=== PATIENT | male | born 1955 | race Caucasian/White ===

== ENCOUNTER 2016-11-03 12:09 | Emergency (ER) | payer OTHER ==
[~2016-11-03] VITALS: Ht 170.2 cm; Wt 60.3 kg
[~2016-11-03 12:09] MED LIST: ALBU17AE13 IH; AUG875 PO; FLUT1DIS; PRED20TA PO
[2016-11-03 12:18] VITALS: BP_SYST 111
--- NOTE | 2016-11-03 12:22 | NUR ---
Pt to bed 8
--- NOTE | 2016-11-03 12:24 | NUR ---
Pt brought by self, A&Ox4, pt states he was bit by a cat yesterday, wants to make sure he does not have rabies, mild swelling and scabs noted on L hand, cap refill <3, VSS, no active bleeding noted.
--- NOTE | 2016-11-03 12:26 | NUR ---
Dr. Weston at bedside for evaluation
[2016-11-03] MEDS ORDERED: AMOXICILLIN/CLAVULANATE POTASSIUM 875 MG TABLET PO ONE (12:30)
[2016-11-03] MEDS ORDERED: DIPH-TET-PERTUS Vaccine 0.5 ML VIAL (ADACEL) IM ONE (12:45)
[2016-11-03 13:00] VITALS: BP_SYST 111
--- NOTE | 2016-11-03 13:08 | NUR ---
Patient given written and verbal discharge instructions and verbalizes understanding. ER MD discussed with patient the results and treatment provided. Patient in stable condition. ID arm band removed. Rx of Augmentin given. Patient educated on pain management and to follow up with PMD. Pain Scale 2/10 tolerable for patient Opportunity for questions provided and answered.
== END 2016-11-03 13:08 | disposition home or self-care (01) ==
LOC: SED 12:09
DX: S61.452A Open bite of left hand, initial encounter (principal); J44.9 Chronic obstructive pulmonary disease, unspecified; K21.9 Gastro-esophageal reflux disease without esophagitis; M47.897 Other spondylosis, lumbosacral region; W55.01XA Bitten by cat, initial encounter; Y93.89 Activity, other specified; Y92.89 Other specified places as the place of occurrence of the external cause; Y99.8 Other external cause status
CPT/HCPCS: 90715; 99283

== ENCOUNTER 2017-03-17 12:03 | Emergency (ER) | payer OTHER ==
[~2017-03-17] VITALS: Ht 170.2 cm; Wt 59.9 kg
[2017-03-17 12:03] VITALS: BP_SYST 124
[2017-03-17] MEDS ORDERED: PREDNISONE 20 MG TABLET PO ONE (13:45)
[2017-03-17] MEDS ORDERED: IPRATROPIUM BROM 0.5 MG/2.5 ML VIAL.NEB (ATROVENT) INH ONE (13:45)
[2017-03-17] MEDS ORDERED: ALBUTEROL SULFATE 0.083% 2.5 MG/3 ML VIAL.NEB INH ONE (13:45)
[2017-03-17] MEDS ORDERED: DOXYCYCLINE HYCLATE 100 MG CAPSULE PO ONE (13:45)
[2017-03-17 15:47] VITALS: BP_SYST 137
== END 2017-03-17 15:47 | disposition home or self-care (01) ==
LOC: SED 12:03
DX: J44.1 Chronic obstructive pulmonary disease with (acute) exacerbation (principal); K21.9 Gastro-esophageal reflux disease without esophagitis; M47.896 Other spondylosis, lumbar region; Z79.899 Other long term (current) drug therapy
CPT/HCPCS: 71020; 94640; 99284; J7512

== ENCOUNTER 2018-04-21 22:36 | Inpatient (IN) | payer OTHER ==
[~2018-04-21] VITALS: Ht 170.2 cm; Wt 65.0 kg
[2018-04-21 22:36] VITALS: BP_SYST 180
[~2018-04-21 22:36] MED LIST changes: +AMOX-426 PO; -AUG875 PO
[2018-04-21] MEDS ORDERED: NS 500 ML IV ONE (23:00)
[2018-04-21] MEDS ORDERED: IPRATROPIUM/ALBUTEROL SULFATE 3 ML AMPUL.NEB INH ONE (23:00)
[2018-04-21] MEDS ORDERED: MAGNESIUM SULFATE IN WATER 500 ML IV PRN (23:00)
[2018-04-21] MEDS ORDERED: NACL 0.9% 500 ML IV ONE (23:00)
[2018-04-21] MEDS ORDERED: methylPREDNISolone SOD SUCC/PF 62.5 MG/ML VIAL IVP ONE (23:00)
[2018-04-21] MEDS ORDERED: MAGNESIUM SULFATE 50 ML IV ONE (23:15)
[2018-04-21 23:42] LABS: BASOPHILS # (AUTO) 0.1 K/uL (0.0-0.2); BASOPHILS % (AUTO) 1.3 % (0.0-2.0); EOSINOPHILS # (AUTO) 0.2 K/uL (0.0-0.4); EOSINOPHILS % (AUTO) 2.4 % (0.0-4.0); HEMATOCRIT 43.2 % (36-54); LYMPHOCYTES # (AUTO) 2.7 K/uL (1.0-5.5); LYMPHOCYTES % (AUTO) 31.7 % (20.5-51.5); MEAN CORPUSCULAR HEMOGLOBIN 31 pg (27-31); MEAN CORPUSCULAR HGB CONC 32 % (32-36); MEAN CORPUSCULAR VOLUME 94 fL (79.0-98.0); MONOCYTES # (AUTO) 0.9 K/uL (0.0-1.0); MONOCYTES % (AUTO) 11.1 % (1.7-9.3); NEUTROPHILS # (AUTO) 4.5 K/uL (1.8-7.7); NEUTROPHILS % (AUTO) 53.5 % (40.0-70.0); PLATELET COUNT (AUTO) 212 K/uL (130-430); RED BLOOD CELL COUNT(AUTO) 4.58 MIL/uL (4.2-6.2); RED CELL DISTRIBUTION WIDTH 12.6 % (9.0-15.0); WHITE BLOOD COUNT (AUTO) 8.4 K/uL (4.8-10.8)
[2018-04-21 23:48] LABS: CALCIUM 9.6 mg/dL (8.4-11.0); CREATININE 0.94 mg/dL (0.55-1.30); POTASSIUM 4.6 mmol/L (3.5-5.1)
[2018-04-21 23:54] LABS: ALBUMIN 3.8 g/dL (3.4-4.8); TOTAL BILIRUBIN 0.5 mg/dL (0.0-1.0)
[2018-04-22] VITALS (7 sets, daily range): BP systolic 139–160
[2018-04-22] MEDS ORDERED: IPRATROPIUM/ALBUTEROL SULFATE 3 ML AMPUL.NEB INH ONE ×2 (00:15→01:30)
[2018-04-22] MEDS ORDERED: ALBU2.5V7 INH (02:56)
[2018-04-22] MEDS ORDERED: ALBMDI INH (02:56)
[2018-04-22] MEDS ORDERED: IPRATROPIUM BROM 0.5 MG/2.5 ML VIAL.NEB (ATROVENT) INH PRN (03:00)
[2018-04-22] MEDS ORDERED: AZITHROMYCIN 500 MG/VIAL (ZITHROMAX) IV ONE (04:35)
[2018-04-22] MEDS ORDERED: cefTRIAXone 1 GM IVPB PREMIX 50 ML IV ONE (04:35)
[2018-04-22] MEDS: cefTRIAXone 1 GM in D5W 50 ML IV SCH (04:38)
[2018-04-22] MEDS: IPRATROPIUM/ALBUTEROL SULFATE 3 ML AMPUL.NEB INH PRN ×2 (05:00→09:38)
[2018-04-22] MEDS: methylPREDNISolone SOD SUCC/PF 62.5 MG/ML VIAL IVP SCH ×3 (05:27→22:19)
[2018-04-22] MEDS: AZITHROMYCIN 500 MG in NS 250 ML IV SCH (05:28)
[2018-04-22] MEDS: IPRATROPIUM/ALBUTEROL SULFATE 3 ML AMPUL.NEB INH SCH ×5 (07:00→23:32)
[2018-04-22] MEDS ORDERED: FLUTICASONE 100 mCg/SALMETEROL 50 mCg DISKUS W.DEV INH SCH (09:45)
[2018-04-22] MEDS ORDERED: ENOXAPARIN SODIUM 40 MG/0.4 ML SYRINGE SUBCUT ONE (14:30)
[2018-04-23 00:14] VITALS: BP_SYST 140
[2018-04-23] MEDS: IPRATROPIUM/ALBUTEROL SULFATE 3 ML AMPUL.NEB INH SCH ×6 (03:00→22:35)
[2018-04-23] MEDS: methylPREDNISolone SOD SUCC/PF 62.5 MG/ML VIAL IVP SCH ×3 (05:17→21:29)
[2018-04-23] MEDS: ENOXAPARIN SODIUM 40 MG/0.4 ML SYRINGE SUBCUT SCH (08:02)
[2018-04-23] MEDS: cefTRIAXone 1 GM in D5W 50 ML IV SCH (08:03)
[2018-04-23 08:11] VITALS: BP_SYST 129
[2018-04-23] MEDS: AZITHROMYCIN 500 MG in NS 250 ML IV SCH (09:16)
[2018-04-23 12:10] VITALS: BP_SYST 126
[2018-04-23 16:56] VITALS: BP_SYST 134
[2018-04-23 19:00] VITALS: BP_SYST 144
[2018-04-23 20:00] VITALS: BP_SYST 144
[2018-04-24 00:12] VITALS: BP_SYST 125
[2018-04-24] MEDS ORDERED: guaiFENesin 200 MG/CODEINE 20 MG/ 10 ML UDC PO PRN (00:15)
[2018-04-24] MEDS ORDERED: ZOLPIDEM TARTRATE 5 MG TABLET PO PRN (00:15)
[2018-04-24] MEDS: IPRATROPIUM/ALBUTEROL SULFATE 3 ML AMPUL.NEB INH SCH ×3 (02:13→10:32)
[2018-04-24] MEDS: methylPREDNISolone SOD SUCC/PF 62.5 MG/ML VIAL IVP SCH (05:26)
[2018-04-24] MEDS: ENOXAPARIN SODIUM 40 MG/0.4 ML SYRINGE SUBCUT SCH (08:01)
[2018-04-24] MEDS: cefTRIAXone 1 GM in D5W 50 ML IV SCH (08:02)
[2018-04-24 08:10] VITALS: BP_SYST 144
[2018-04-24] MEDS: AZITHROMYCIN 500 MG in NS 250 ML IV SCH (09:11)
[2018-04-24] MEDS ORDERED: MEDROL PACK PO (09:51)
[2018-04-24] MEDS ORDERED: Z-PACK PO (09:54)
[2018-04-24 10:16] VITALS: BP_SYST 143
[2018-04-24 12:15] VITALS: BP_SYST 143
== END 2018-04-24 11:10 | disposition home or self-care (01) | DRG 192 ==
LOC: SED 22:36 → STU 04-22 02:51
PROVIDERS: ADMIT Internal Medicine Hospice and Palliative Medicine; ATTEND Internal Medicine Hospice and Palliative Medicine
DX: J44.1 Chronic obstructive pulmonary disease with (acute) exacerbation (principal); I10 Essential (primary) hypertension; F17.210 Nicotine dependence, cigarettes, uncomplicated; K21.9 Gastro-esophageal reflux disease without esophagitis; F32.9 Major depressive disorder, single episode, unspecified; Z66 Do not resuscitate; M47.9 Spondylosis, unspecified
CPT/HCPCS: 36415; 36600; 71045; 80053; 82803-TC; 83605; 85025; 87040-TC; 94640; 94760; 96361; 96365; 96366; 96375; 99285; J0456; J0696; J1650; J2930; J3475; J7040; J7050; J7060; J7620

== ENCOUNTER 2018-05-05 23:19 | Emergency (ER) | payer OTHER ==
[~2018-05-05] VITALS: Ht 170.2 cm; Wt 59.9 kg
[2018-05-05 23:19] VITALS: BP_SYST 174
[~2018-05-05 23:19] MED LIST changes: +ALBMDI INH; +ALBU2.5V7 INH; -AMOX-426 PO; +MEDROL PACK PO; -PRED20TA PO; +Z-PACK PO
--- NOTE | 2018-05-05 23:19 | NUR ---
Placed in room 1. Placed on environmental monitoring technician, blood pressure machine and pulse oximeter. To gown for exam. Side rails up. Report given to Pee WILKERSON.
[2018-05-05] MEDS ORDERED: NACL 0.9% 1,000 ML IV ONE ×2 (23:21→23:30)
--- NOTE | 2018-05-05 23:21 | NUR ---
Pt was brought in by ALS complaining of shortness of breath s/p smoking one cigarette today. Per field marketing coordinator, pt has an inhaler and used it but no relief. Pt came in with 20 gauge angiocath to left AC placed by paramedics. Pt denies N/V or chest pain. No other injuries/complaints per patient or noted.
--- NOTE | 2018-05-05 23:22 | NUR ---
ER Dr. Woodward at bedside examining patient.
[2018-05-05] MEDS ORDERED: cefTRIAXone 1 GM IVPB PREMIX 50 ML IV ONE (23:30)
[2018-05-05] MEDS ORDERED: IPRATROPIUM BROM 0.5 MG/2.5 ML VIAL.NEB (ATROVENT) IH ONE (23:30)
[2018-05-05] MEDS ORDERED: ASPIRIN 81 MG TAB.CHEW PO ONE (23:30)
[2018-05-05] MEDS ORDERED: methylPREDNISolone SOD SUCC/PF 62.5 MG/ML VIAL IVP ONE (23:30)
[2018-05-05] MEDS ORDERED: ALBUTEROL SULFATE 0.083% 2.5 MG/3 ML VIAL.NEB IH ONE (23:30)
[2018-05-05] MEDS ORDERED: MAGNESIUM SULFATE 50 ML IV ONE (23:30)
--- NOTE | 2018-05-06 00:01 | NUR ---
Medication was given, pt tolerated well. No adverse reaction, will continue to monitor.
[2018-05-06 00:15] LABS: BASOPHILS # (AUTO) 0.1 K/uL (0.0-0.2); BASOPHILS % (AUTO) 0.9 % (0.0-2.0); EOSINOPHILS # (AUTO) 0.2 K/uL (0.0-0.4); EOSINOPHILS % (AUTO) 1.7 % (0.0-4.0); HEMOGLOBIN 13.4 g/dL (14.0-18.0); LYMPHOCYTES # (AUTO) 3.2 K/uL (1.0-5.5); LYMPHOCYTES % (AUTO) 33.5 % (20.5-51.5); MEAN CORPUSCULAR HEMOGLOBIN 30 pg (27-31); MEAN CORPUSCULAR HGB CONC 32 % (32-36); MEAN CORPUSCULAR VOLUME 94 fL (79.0-98.0); MONOCYTES # (AUTO) 0.8 K/uL (0.0-1.0); MONOCYTES % (AUTO) 8.2 % (1.7-9.3); NEUTROPHILS # (AUTO) 5.4 K/uL (1.8-7.7); NEUTROPHILS % (AUTO) 55.7 % (40.0-70.0); PLATELET COUNT (AUTO) 226 K/uL (130-430); RED BLOOD CELL COUNT(AUTO) 4.45 MIL/uL (4.2-6.2); RED CELL DISTRIBUTION WIDTH 12.6 % (9.0-15.0); WHITE BLOOD COUNT (AUTO) 9.7 K/uL (4.8-10.8)
[2018-05-06 00:26] LABS: CALCIUM 8.8 mg/dL (8.4-11.0); CREATININE 0.88 mg/dL (0.55-1.30); POTASSIUM 3.6 mmol/L (3.5-5.1)
[2018-05-06 00:29] LABS: INR 0.9 (0.80-1.20)
[2018-05-06 00:30] LABS: PROTHROMBIN TIME 8.9 SECS (9.5-12.5)
[2018-05-06 00:32] LABS: ALBUMIN 3.3 g/dL (3.4-4.8); TOTAL BILIRUBIN 0.2 mg/dL (0.0-1.0)
--- NOTE | 2018-05-06 01:36 | NUR ---
Pt resting comfortably in hospital bed. No acute distress. Will continue to monitor.
[2018-05-06 02:17] VITALS: BP_SYST 136
--- NOTE | 2018-05-06 02:17 | NUR ---
Patient given written and verbal discharge instructions and verbalizes understanding. ER MD discussed with patient the results and treatment provided. Patient in stable condition. ID arm band removed. IV catheter removed intact and dressing applied, no active bleeding. Rx of Robitussin, Albuterol, and Zithromax given. Patient educated on pain management and to follow up with PMD. Pain Scale 0/10. Opportunity for questions provided and answered. Medication side effect fact sheet provided.
[2018-05-06 02:20] LABS: BILIRUBIN,URINE NEGATIVE (NEGATIVE); BLOOD, URINE NEGATIVE (NEGATIVE); CLARITY/URINE CLEAR (CLEAR); COLOR,URINE YELLOW (YELLOW); GLUCOSE,URINE NEGATIVE (NEGATIVE); KETONES,URINE NEGATIVE (NEGATIVE); LEUKOCYTE ESTERASE ,URINE NEGATIVE (NEGATIVE); NITRITE, URINE NEGATIVE (NEGATIVE); PROTEIN URINE NEGATIVE (NEGATIVE); UROBILINOGEN,URINE 0.2 (0.2-1.0)
[2018-05-06 02:52] LABS: BARBITURATE, URINE NEGATIVE (NEG <=200); BENZODIAZEPINE, URINE NEGATIVE (NEG <=150); CANNABINOID, URINE NEGATIVE (NEG <=50); COCAINE, URINE NEGATIVE (NEG <=150); METHAMPHETAMINES SCREEN,URINE NEGATIVE (NEG <=500); OPIATE, URINE NEGATIVE (NEG <=100); PHENCYCLIDINE SCREEN,URINE NEGATIVE (NEG <=25); UR TRICYCLIC ANTIDEPRESSANTS NEGATIVE (NEG <=300); URINE AMPHETAMINE NEGATIVE (NEG <=500); URINE METHADONE NEGATIVE (NEG <=200); URINE OXYCODONE SCREEN NEGATIVE (NEG <=100); URINE PROPOXYPHENE SCREEN NEGATIVE (NEG <=300)
== END 2018-05-06 02:17 | disposition home or self-care (01) ==
LOC: SED 23:19
DX: J44.1 Chronic obstructive pulmonary disease with (acute) exacerbation (principal); K21.9 Gastro-esophageal reflux disease without esophagitis; F17.210 Nicotine dependence, cigarettes, uncomplicated; Z79.899 Other long term (current) drug therapy; Z71.6 Tobacco abuse counseling
CPT/HCPCS: 36415; 36600; 71045; 80053; 80307; 81003; 82150; 82550; 82803; 83605; 83690; 83735; 84484; 85025; 85610; 85730; 87040; 94640; 96365; 96366; 96368; 96375; 99285; J0696; J2930; J3475; J7030; J7613

== ENCOUNTER 2018-05-18 19:07 | Emergency (ER) | payer OTHER ==
[~2018-05-18] VITALS: Ht 170.2 cm; Wt 59.9 kg
[2018-05-18 19:07] VITALS: BP_SYST 154
--- NOTE | 2018-05-18 19:07 | NUR ---
Patient to ER bed 6 to gown for evaluation. Side rails up.
--- NOTE | 2018-05-18 19:08 | NUR ---
PT AAOx4 wheeled into ED c/o difficulty breathing/SOB despite taking albuterol inhaler prior to arrival. Skin pink dry and warm. Denies pain at the moment. No other injuries/complaints per pt/noted. Visitor at bedside. Will continue to monitor.
--- NOTE | 2018-05-18 19:14 | NUR ---
12 lead EKG done at bedside and given to Dr. Escobar for interpretation.
--- NOTE | 2018-05-18 19:30 | NUR ---
Radiology at bedside for CXR
[2018-05-18] MEDS ORDERED: IPRATROPIUM/ALBUTEROL SULFATE 3 ML AMPUL.NEB INH ONE ×2 (19:45→22:00)
--- NOTE | 2018-05-18 19:45 | NUR ---
Respiratory at bedside for breathing tx
[2018-05-18] MEDS ORDERED: methylPREDNISolone SOD SUCC/PF 62.5 MG/ML VIAL IVP ONE (20:30)
[2018-05-18] MEDS ORDERED: MAGNESIUM SULFATE 50 ML IV ONE (20:30)
[2018-05-18 20:31] LABS: INR 0.9 (0.80-1.20); PROTHROMBIN TIME 8.8 SECS (9.5-12.5)
[2018-05-18 21:07] LABS: CALCIUM 8.9 mg/dL (8.4-11.0); CREATININE 0.84 mg/dL (0.55-1.30); POTASSIUM 3.4 mmol/L (3.5-5.1)
[2018-05-18 21:09] LABS: BASOPHILS % (AUTO) 0.6 % (0.0-2.0); EOSINOPHILS % (AUTO) 0.1 % (0.0-4.0); HEMATOCRIT 39.3 % (36-54); HEMOGLOBIN 12.8 g/dL (14.0-18.0); LYMPHOCYTES # (AUTO) 1.5 K/uL (1.0-5.5); LYMPHOCYTES % (AUTO) 19.9 % (20.5-51.5); MEAN CORPUSCULAR HEMOGLOBIN 31 pg (27-31); MEAN CORPUSCULAR HGB CONC 33 % (32-36); MEAN CORPUSCULAR VOLUME 94 fL (79.0-98.0); MONOCYTES # (AUTO) 0.7 K/uL (0.0-1.0); MONOCYTES % (AUTO) 8.9 % (1.7-9.3); NEUTROPHILS # (AUTO) 5.3 K/uL (1.8-7.7); NEUTROPHILS % (AUTO) 70.5 % (40.0-70.0); PLATELET COUNT (AUTO) 213 K/uL (130-430); RED BLOOD CELL COUNT(AUTO) 4.18 MIL/uL (4.2-6.2); RED CELL DISTRIBUTION WIDTH 12.9 % (9.0-15.0); WHITE BLOOD COUNT (AUTO) 7.5 K/uL (4.8-10.8)
--- NOTE | 2018-05-18 21:09 | NUR ---
Solumedrol, Mag Sulfate administered. Pt tolerated well. No adverse reactions noted.
[2018-05-18 21:12] LABS: ALBUMIN 3.2 g/dL (3.4-4.8); TOTAL BILIRUBIN 0.3 mg/dL (0.0-1.0)
[2018-05-18] MEDS ORDERED: IPRATROPIUM/ALBUTEROL SULFATE 3 ML AMPUL.NEB ONE (21:55)
--- NOTE | 2018-05-18 22:05 | NUR ---
Pt resting comfortably in bed with no signs of distress
--- NOTE | 2018-05-18 22:43 | NUR ---
Patient given written and verbal discharge instructions and verbalizes understanding. ER MD Boone discussed with patient the results and treatment provided. Patient in stable condition. ID arm band removed. IV catheter removed intact and dressing applied, no active bleeding. Rx of Medrol Dosepak, Atrovent given. Patient educated on pain management and to follow up with PMD. Pain Scale 0. Opportunity for questions provided and answered. Medication side effect fact sheet provided.
[2018-05-18 22:44] VITALS: BP_SYST 139
== END 2018-05-18 22:43 | disposition home or self-care (01) ==
LOC: SED 19:07
DX: J44.1 Chronic obstructive pulmonary disease with (acute) exacerbation (principal); K21.9 Gastro-esophageal reflux disease without esophagitis; Z79.899 Other long term (current) drug therapy
CPT/HCPCS: 36415; 71045; 80053; 82550; 83880; 84484; 85025; 85610; 85730; 93005; 94640; 96365; 96366; 96375; 99285; J2930; J3475; J7620

== ENCOUNTER 2018-06-08 23:14 | Inpatient (IN) | payer OTHER ==
[~2018-06-08] VITALS: Ht 167.6 cm; Wt 60.0 kg
[2018-06-08 23:14] VITALS: BP_SYST 129
[2018-06-09] VITALS (8 sets, daily range): BP systolic 133–170
[2018-06-09] MEDS ORDERED: methylPREDNISolone SOD SUCC/PF 62.5 MG/ML VIAL IVP ONE (00:15)
[2018-06-09] MEDS ORDERED: guaiFENesin/DEXTROMETHORPHAN 10 ML UDC PO ONE (00:15)
[2018-06-09] MEDS ORDERED: NACL 0.9% 1,000 ML IV ONE ×2 (00:15→01:45)
[2018-06-09 00:43] LABS: CREATININE 1.17 mg/dL (0.55-1.30); POTASSIUM 4.7 mmol/L (3.5-5.1)
[2018-06-09 00:47] LABS: HEMATOCRIT 43.8 % (36-54); HEMOGLOBIN 14.4 g/dL (14.0-18.0); MEAN CORPUSCULAR HEMOGLOBIN 31 pg (27-31); MEAN CORPUSCULAR HGB CONC 33 % (32-36); MEAN CORPUSCULAR VOLUME 93 fL (79.0-98.0); PLATELET COUNT (AUTO) 275 K/uL (130-430); RED BLOOD CELL COUNT(AUTO) 4.69 MIL/uL (4.2-6.2); RED CELL DISTRIBUTION WIDTH 12.6 % (9.0-15.0)
[2018-06-09 00:48] LABS: ALBUMIN 2.3 g/dL (3.4-4.8); INR 0.8 (0.80-1.20); PROTHROMBIN TIME 8.6 SECS (9.5-12.5); TOTAL BILIRUBIN 0.2 mg/dL (0.0-1.0)
[2018-06-09] MEDS ORDERED: cefTRIAXone 1 GM IVPB PREMIX 50 ML IV ONE (01:45)
[2018-06-09] MEDS ORDERED: VANCOMYCIN HCL 1,000 MG in NS 250 ML IV ONE (01:45)
[2018-06-09] MEDS ORDERED: PRED5TAB PO (01:47)
[2018-06-09 01:59] LABS: BAND % (MANUAL) 2 % (0-6); BASOPHILS % (MANUAL) 0 % (0-2); EOSINOPHILS % (MANUAL) 0 % (0-7); LYMPHOCYTES % (MANUAL) 8 % (20-46); MONOCYTES % (MANUAL) 6 % (0-11)
[2018-06-09 02:00] LABS: WHITE BLOOD COUNT (AUTO) 18.9 K/uL (4.8-10.8)
[2018-06-09] MEDS ORDERED: VANCOMYCIN HCL 1000 MG/VIAL IV ONE (02:10)
[2018-06-09] MEDS ORDERED: KETOROLAC TROMETHAMINE 30 MG VIAL IVP ONE (02:30)
[2018-06-09] MEDS ORDERED: IPRATROPIUM BROM 0.5 MG/2.5 ML VIAL.NEB (ATROVENT) INH PRN (07:00)
[2018-06-09] MEDS ORDERED: ALBUTEROL SULFATE 0.083% 2.5 MG/3 ML VIAL.NEB INH PRN (07:00)
[2018-06-09] MEDS ORDERED: HYDROcodone/ACETAMIN 5-325 MG TAB (NORCO/ VICODIN) PO PRN (07:00)
[2018-06-09] MEDS ORDERED: ONDANSETRON HCL 4 MG/2 ML VIAL IVP PRN (07:00)
[2018-06-09] MEDS ORDERED: methylPREDNISolone SOD SUCC 40 MG/ML VIAL IVP ONE (07:30)
[2018-06-09] MEDS ORDERED: DEXTROSE 50%-WATER 50 ML DISP.SYRIN IVP PRN ×2 (07:30)
[2018-06-09] MEDS ORDERED: GLUCOSE 15 GM GEL (in 37.5 GM TUBE) PO PRN ×2 (07:30)
[2018-06-09] MEDS: IPRATROPIUM BROM 0.5 MG/2.5 ML VIAL.NEB (ATROVENT) INH SCH ×5 (07:40→23:00)
[2018-06-09] MEDS: ALBUTEROL SULFATE 0.083% 2.5 MG/3 ML VIAL.NEB INH SCH ×4 (07:40→19:42)
[2018-06-09 08:42] LABS: HEMATOCRIT 40.3 % (36-54); HEMOGLOBIN 13.3 g/dL (14.0-18.0); MEAN CORPUSCULAR HEMOGLOBIN 30 pg (27-31); MEAN CORPUSCULAR HGB CONC 33 % (32-36); MEAN CORPUSCULAR VOLUME 92 fL (79.0-98.0); PLATELET COUNT (AUTO) 256 K/uL (130-430); RED CELL DISTRIBUTION WIDTH 12.5 % (9.0-15.0); WHITE BLOOD COUNT (AUTO) 18.7 K/uL (4.8-10.8)
[2018-06-09 08:48] LABS: ANION GAP 9 (5-15); CALCIUM 9.1 mg/dL (8.4-11.0); CHLORIDE 104 mmol/L (98-107); CREATININE 1.11 mg/dL (0.55-1.30); GLUCOSE 159 mg/dL (70-99); POTASSIUM 4.9 mmol/L (3.5-5.1); SODIUM SERUM 143 mmol/L (136-145); UREA NITROGEN, BLOOD 26 mg/dL (8-21)
[2018-06-09 08:50] LABS: GFR AFRICAN AMERICAN 86 mL/min (>90)
[2018-06-09 09:00] LABS: ALANINE AMINOTRANSFERASE 30 U/L (12-78); ALBUMIN 2.4 g/dL (3.4-4.8); ASPARTATE AMINOTRANSFERASE 18 U/L (10-37); TOTAL BILIRUBIN 0.3 mg/dL (0.0-1.0)
[2018-06-09 09:10] LABS: BASOPHILS % (MANUAL) 0 % (0-2); EOSINOPHILS % (MANUAL) 0 % (0-7); LYMPHOCYTES % (MANUAL) 6 % (20-46); MONOCYTES % (MANUAL) 2 % (0-11)
[2018-06-09] MEDS: FAMOTIDINE 20 MG TABLET PO SCH (09:55)
[2018-06-09] MEDS: AZITHROMYCIN 500 MG in NS 250 ML IV SCH (09:55)
[2018-06-09] MEDS: INSULIN ASPART 100 UNITS/ML, 10 ML VIAL (NovoLOG) SUBCUT PRN ×2 (12:04→21:43)
[2018-06-09] MEDS: methylPREDNISolone SOD SUCC 40 MG/ML VIAL IVP SCH ×2 (13:11→21:40)
[2018-06-09] MEDS ORDERED: cefTRIAXone 1 GM IVPB PREMIX 50 ML IV SCH (21:00)
[2018-06-10] MEDS: ALBUTEROL SULFATE 0.083% 2.5 MG/3 ML VIAL.NEB INH SCH ×2 (00:33→07:18)
[2018-06-10 01:03] VITALS: BP_SYST 140
[2018-06-10] MEDS: IPRATROPIUM BROM 0.5 MG/2.5 ML VIAL.NEB (ATROVENT) INH SCH ×2 (03:00→07:18)
[2018-06-10] MEDS: methylPREDNISolone SOD SUCC 40 MG/ML VIAL IVP SCH (05:43)
[2018-06-10] MEDS: INSULIN ASPART 100 UNITS/ML, 10 ML VIAL (NovoLOG) SUBCUT PRN (06:43)
[2018-06-10 06:52] LABS: BASOPHILS # (AUTO) 0.1 K/uL (0.0-0.2); BASOPHILS % (AUTO) 0.4 % (0.0-2.0); EOSINOPHILS % (AUTO) 0.1 % (0.0-4.0); HEMATOCRIT 36.8 % (36-54); HEMOGLOBIN 12.1 g/dL (14.0-18.0); LYMPHOCYTES # (AUTO) 0.7 K/uL (1.0-5.5); LYMPHOCYTES % (AUTO) 3.9 % (20.5-51.5); MEAN CORPUSCULAR HEMOGLOBIN 30 pg (27-31); MEAN CORPUSCULAR HGB CONC 33 % (32-36); MEAN CORPUSCULAR VOLUME 92 fL (79.0-98.0); MONOCYTES # (AUTO) 0.6 K/uL (0.0-1.0); MONOCYTES % (AUTO) 3.4 % (1.7-9.3); NEUTROPHILS # (AUTO) 15.3 K/uL (1.8-7.7); PLATELET COUNT (AUTO) 212 K/uL (130-430); RED CELL DISTRIBUTION WIDTH 12.1 % (9.0-15.0); WHITE BLOOD COUNT (AUTO) 16.7 K/uL (4.8-10.8)
[2018-06-10 07:07] LABS: ALBUMIN 2.1 g/dL (3.4-4.8); CALCIUM 9.7 mg/dL (8.4-11.0); CREATININE 0.85 mg/dL (0.55-1.30); POTASSIUM 3.8 mmol/L (3.5-5.1); TOTAL BILIRUBIN 0.3 mg/dL (0.0-1.0)
[2018-06-10 07:24] LABS: NEUTROPHILS % (AUTO) 92.2 % (40.0-70.0)
[2018-06-10 07:28] VITALS: BP_SYST 147
[2018-06-10] MEDS: AZITHROMYCIN 500 MG in NS 250 ML IV SCH (08:34)
[2018-06-10] MEDS: FAMOTIDINE 20 MG TABLET PO SCH (08:43)
[2018-06-10] MEDS ORDERED: MED4 PO (10:20)
[2018-06-10] MEDS ORDERED: AZIT500T2 PO (10:21)
[2018-06-10] MEDS ORDERED: IPRA4AER INH (10:22)
[2018-06-10] MEDS ORDERED: BUDE6HFA INH (10:23)
[2018-06-10 10:25] VITALS: BP_SYST 147
[2018-06-10 10:53] VITALS: BP_SYST 147
[2018-06-10 11:05] VITALS: BP_SYST 147
== END 2018-06-10 11:15 | disposition home or self-care (01) | DRG 871 ==
LOC: SED 23:14 → STU 06-09 02:25
PROVIDERS: ADMIT Internal Medicine; ATTEND Internal Medicine
DX: A41.9 Sepsis, unspecified organism (principal); J18.9 Pneumonia, unspecified organism; J44.1 Chronic obstructive pulmonary disease with (acute) exacerbation; R64 Cachexia; J44.0 Chronic obstructive pulmonary disease with (acute) lower respiratory infection; F32.9 Major depressive disorder, single episode, unspecified; K21.9 Gastro-esophageal reflux disease without esophagitis; M47.9 Spondylosis, unspecified; E11.9 Type 2 diabetes mellitus without complications; Z68.21 Body mass index [BMI] 21.0-21.9, adult; Z79.899 Other long term (current) drug therapy; Z87.891 Personal history of nicotine dependence
CPT/HCPCS: 36415; 36600; 71045; 80053; 82803-TC; 82962; 83605; 83880; 84484; 85007; 85025; 85027; 85379; 85610-TC; 85730-TC; 87040-TC; 90656; 93005; 94640; 94760; 96361; 96365; 96366; 96375; 99285; J0456; J0696; J1030; J1815; J1885; J2930; J3370; J7030; J7050; J7613

== ENCOUNTER 2018-06-21 13:13 | Inpatient (IN) | payer OTHER ==
[~2018-06-21] VITALS: Ht 167.6 cm; Wt 62.1 kg
[~2018-06-21 13:13] MED LIST changes: -ALBU17AE13 IH; +AZIT500T2 PO; +BUDE6HFA INH; -FLUT1DIS; +IPRA4AER INH; +MED4 PO; -MEDROL PACK PO; -Z-PACK PO
[2018-06-21 13:17] VITALS: BP_SYST 102
[2018-06-21] MEDS ORDERED: NACL 0.9% 1,000 ML IV ONE (13:19)
[2018-06-21] MEDS ORDERED: IPRATROPIUM BROM 0.5 MG/2.5 ML VIAL.NEB (ATROVENT) IH ONE (14:15)
[2018-06-21] MEDS ORDERED: ALBUTEROL SULFATE 0.083% 2.5 MG/3 ML VIAL.NEB IH ONE (14:15)
[2018-06-21] MEDS ORDERED: methylPREDNISolone SOD SUCC/PF 62.5 MG/ML VIAL IVP ONE (14:15)
[2018-06-21] MEDS ORDERED: cefTRIAXone 1 GM IVPB PREMIX 50 ML IV ONE (14:15)
[2018-06-21 14:21] LABS: BASOPHILS # (AUTO) 0.2 K/uL (0.0-0.2); BASOPHILS % (AUTO) 1.6 % (0.0-2.0); EOSINOPHILS % (AUTO) 0.1 % (0.0-4.0); HEMATOCRIT 36.9 % (36-54); HEMOGLOBIN 12.3 g/dL (14.0-18.0); LYMPHOCYTES # (AUTO) 1.5 K/uL (1.0-5.5); MEAN CORPUSCULAR HEMOGLOBIN 31 pg (27-31); MEAN CORPUSCULAR HGB CONC 33 % (32-36); MEAN CORPUSCULAR VOLUME 92 fL (79.0-98.0); MONOCYTES # (AUTO) 0.3 K/uL (0.0-1.0); MONOCYTES % (AUTO) 2.7 % (1.7-9.3); NEUTROPHILS # (AUTO) 8.3 K/uL (1.8-7.7); NEUTROPHILS % (AUTO) 80.6 % (40.0-70.0); PLATELET COUNT (AUTO) 284 K/uL (130-430); RED BLOOD CELL COUNT(AUTO) 4.04 MIL/uL (4.2-6.2); RED CELL DISTRIBUTION WIDTH 12.7 % (9.0-15.0); WHITE BLOOD COUNT (AUTO) 10.3 K/uL (4.8-10.8)
[2018-06-21 14:28] LABS: INR 0.9 (0.80-1.20); PROTHROMBIN TIME 9.2 SECS (9.5-12.5); TOTAL BILIRUBIN 0.2 mg/dL (0.0-1.0)
[2018-06-21 14:30] LABS: ALBUMIN 1.8 g/dL (3.4-4.8)
[2018-06-21 14:34] LABS: CALCIUM 8.5 mg/dL (8.4-11.0); CREATININE 0.82 mg/dL (0.55-1.30); POTASSIUM 3.2 mmol/L (3.5-5.1)
[2018-06-21] MEDS ORDERED: ACETAMINOPHEN 325 MG TABLET PO PRN (15:00)
[2018-06-21] MEDS ORDERED: ALBUTEROL SULFATE 0.083% 2.5 MG/3 ML VIAL.NEB INH ONE ×2 (15:00→23:35)
[2018-06-21] MEDS ORDERED: AZITHROMYCIN 500 MG in NS 250 ML IV ONE (15:00)
[2018-06-21] MEDS ORDERED: ONDANSETRON HCL 4 MG/2 ML VIAL IVP SCH (15:00)
[2018-06-21] MEDS ORDERED: AZITHROMYCIN 500 MG/VIAL (ZITHROMAX) IV ONE (15:23)
[2018-06-21 16:04] LABS: BILIRUBIN,URINE NEGATIVE (NEGATIVE); BLOOD, URINE NEGATIVE (NEGATIVE); CLARITY/URINE CLEAR (CLEAR); COLOR,URINE YELLOW (YELLOW); GLUCOSE,URINE NEGATIVE (NEGATIVE); KETONES,URINE NEGATIVE (NEGATIVE); LEUKOCYTE ESTERASE ,URINE NEGATIVE (NEGATIVE); NITRITE, URINE NEGATIVE (NEGATIVE); PH,URINE 6.5 (5.0-8.0); PROTEIN URINE NEGATIVE (NEGATIVE); UROBILINOGEN,URINE 0.2 (0.2-1.0)
[2018-06-21 16:14] LABS: BARBITURATE, URINE NEGATIVE (NEG <=200); BENZODIAZEPINE, URINE NEGATIVE (NEG <=150); CANNABINOID, URINE NEGATIVE (NEG <=50); COCAINE, URINE NEGATIVE (NEG <=150); METHAMPHETAMINES SCREEN,URINE NEGATIVE (NEG <=500); OPIATE, URINE NEGATIVE (NEG <=100); PHENCYCLIDINE SCREEN,URINE NEGATIVE (NEG <=25); UR TRICYCLIC ANTIDEPRESSANTS NEGATIVE (NEG <=300); URINE AMPHETAMINE NEGATIVE (NEG <=500); URINE METHADONE NEGATIVE (NEG <=200); URINE OXYCODONE SCREEN NEGATIVE (NEG <=100); URINE PROPOXYPHENE SCREEN NEGATIVE (NEG <=300)
[2018-06-21 16:19] VITALS: BP_SYST 113
[2018-06-21 19:30] VITALS: BP_SYST 148
[2018-06-21] MEDS ORDERED: ALBUTEROL SULFATE 0.083% 2.5 MG/3 ML VIAL.NEB INH PRN (23:30)
[2018-06-21] MEDS ORDERED: POTASSIUM CHLORIDE 20 MEQ TAB.PRT.SR PO ONE (23:30)
[2018-06-21 23:35] VITALS: BP_SYST 148
[2018-06-22 00:30] VITALS: BP_SYST 130
[2018-06-22 06:20] LABS: HEMATOCRIT 30.2 % (36-54); HEMOGLOBIN 10.2 g/dL (14.0-18.0); MEAN CORPUSCULAR HEMOGLOBIN 31 pg (27-31); MEAN CORPUSCULAR HGB CONC 34 % (32-36); MEAN CORPUSCULAR VOLUME 92 fL (79.0-98.0); PLATELET COUNT (AUTO) 192 K/uL (130-430); RED BLOOD CELL COUNT(AUTO) 3.28 MIL/uL (4.2-6.2); RED CELL DISTRIBUTION WIDTH 12.6 % (9.0-15.0)
[2018-06-22 06:34] LABS: CALCIUM 8.7 mg/dL (8.4-11.0); CREATININE 0.59 mg/dL (0.55-1.30); POTASSIUM 4.3 mmol/L (3.5-5.1)
[2018-06-22 06:39] LABS: ALBUMIN 1.6 g/dL (3.4-4.8); TOTAL BILIRUBIN 0.2 mg/dL (0.0-1.0)
[2018-06-22 07:39] LABS: WHITE BLOOD COUNT (AUTO) 9.9 K/uL (4.8-10.8)
[2018-06-22] MEDS: ENOXAPARIN SODIUM 40 MG/0.4 ML SYRINGE SUBCUT SCH (08:04)
[2018-06-22] MEDS: PANTOPRAZOLE SODIUM 40 MG TAB PO SCH (08:05)
[2018-06-22 08:06] VITALS: BP_SYST 121
[2018-06-22] MEDS ORDERED: IOHEXOL 350 mgI/mL, 150 ML INFUS..BTL IV ONE (09:39)
[2018-06-22] MEDS: methylPREDNISolone SOD SUCC 40 MG/ML VIAL IVP SCH ×2 (10:21→20:41)
[2018-06-22] MEDS: LEVOFLOXACIN 500 MG/D5W 100 ML IV SCH (10:27)
[2018-06-22 11:49] LABS: ATYPICAL LYMPHOCYTES % 0 % (0-0); BAND % (MANUAL) 5 % (0-6); BASOPHILS % (MANUAL) 0 % (0-2); EOSINOPHILS % (MANUAL) 0 % (0-7); LYMPHOCYTES % (MANUAL) 10 % (20-46); MONOCYTES % (MANUAL) 7 % (0-11)
[2018-06-22 12:14] VITALS: BP_SYST 131
[2018-06-22] MEDS: ALBUTEROL SULFATE 0.083% 2.5 MG/3 ML VIAL.NEB INH SCH ×2 (13:17→19:54)
[2018-06-22] MEDS: IPRATROPIUM BROM 0.5 MG/2.5 ML VIAL.NEB (ATROVENT) INH SCH ×2 (13:17→19:53)
[2018-06-22 16:11] VITALS: BP_SYST 134
[2018-06-22 20:00] VITALS: BP_SYST 115
[2018-06-22 23:20] VITALS: BP_SYST 128
[2018-06-23] MEDS: ALBUTEROL SULFATE 0.083% 2.5 MG/3 ML VIAL.NEB INH SCH ×4 (00:51→19:36)
[2018-06-23] MEDS: IPRATROPIUM BROM 0.5 MG/2.5 ML VIAL.NEB (ATROVENT) INH SCH ×4 (00:51→19:36)
[2018-06-23 08:00] VITALS: BP_SYST 134
[2018-06-23] MEDS: PANTOPRAZOLE SODIUM 40 MG TAB PO SCH (08:23)
[2018-06-23] MEDS: methylPREDNISolone SOD SUCC 40 MG/ML VIAL IVP SCH ×2 (08:23→21:52)
[2018-06-23] MEDS: LEVOFLOXACIN 500 MG/D5W 100 ML IV SCH (08:23)
[2018-06-23] MEDS: ENOXAPARIN SODIUM 40 MG/0.4 ML SYRINGE SUBCUT SCH (08:29)
[2018-06-23] MEDS ORDERED: ALBUTEROL SULFATE 0.083% 2.5 MG/3 ML VIAL.NEB INH PRN (09:00)
[2018-06-23] MEDS: PIPERACILLIN/TAZO 3.375/DEX-IS 50 ML IV SCH ×4 (09:55→23:26)
[2018-06-23 12:36] VITALS: BP_SYST 111
[2018-06-23 16:50] VITALS: BP_SYST 114
[2018-06-24] VITALS (7 sets, daily range): BP systolic 120–148
[2018-06-24] MEDS: IPRATROPIUM BROM 0.5 MG/2.5 ML VIAL.NEB (ATROVENT) INH SCH ×4 (00:05→19:47)
[2018-06-24] MEDS: ALBUTEROL SULFATE 0.083% 2.5 MG/3 ML VIAL.NEB INH SCH ×4 (00:05→19:47)
[2018-06-24] MEDS: PIPERACILLIN/TAZO 3.375/DEX-IS 50 ML IV SCH ×4 (05:25→23:51)
[2018-06-24] MEDS: PANTOPRAZOLE SODIUM 40 MG TAB PO SCH (09:11)
[2018-06-24] MEDS: methylPREDNISolone SOD SUCC 40 MG/ML VIAL IVP SCH (09:11)
[2018-06-24] MEDS: LEVOFLOXACIN 500 MG/D5W 100 ML IV SCH (09:12)
[2018-06-24] MEDS: ENOXAPARIN SODIUM 40 MG/0.4 ML SYRINGE SUBCUT SCH (09:12)
[2018-06-24] MEDS: PREDNISONE 20 MG TABLET PO SCH (21:11)
[2018-06-25] MEDS: IPRATROPIUM BROM 0.5 MG/2.5 ML VIAL.NEB (ATROVENT) INH SCH ×4 (00:38→19:40)
[2018-06-25] MEDS: ALBUTEROL SULFATE 0.083% 2.5 MG/3 ML VIAL.NEB INH SCH ×4 (00:38→19:40)
[2018-06-25 00:49] VITALS: BP_SYST 144
[2018-06-25 04:21] VITALS: BP_SYST 144
[2018-06-25] MEDS: PIPERACILLIN/TAZO 3.375/DEX-IS 50 ML IV SCH ×4 (06:19→23:16)
[2018-06-25 08:00] VITALS: BP_SYST 120
[2018-06-25] MEDS: PANTOPRAZOLE SODIUM 40 MG TAB PO SCH (08:20)
[2018-06-25] MEDS: PREDNISONE 20 MG TABLET PO SCH (08:20)
[2018-06-25] MEDS: LEVOFLOXACIN 500 MG/D5W 100 ML IV SCH (08:20)
[2018-06-25] MEDS: ENOXAPARIN SODIUM 40 MG/0.4 ML SYRINGE SUBCUT SCH (08:26)
[2018-06-25] MEDS ORDERED: LORazepam 2 MG/ML VIAL IVP PRN ×2 (09:30)
[2018-06-25 12:02] VITALS: BP_SYST 126
[2018-06-25 16:02] VITALS: BP_SYST 112
[2018-06-25 20:00] VITALS: BP_SYST 127
[2018-06-25] MEDS: PREDNISONE 10 MG TABLET PO SCH (21:08)
[2018-06-26] VITALS: BP_SYST 110
[2018-06-26] MEDS: IPRATROPIUM BROM 0.5 MG/2.5 ML VIAL.NEB (ATROVENT) INH SCH ×4 (01:30→20:30)
[2018-06-26] MEDS: ALBUTEROL SULFATE 0.083% 2.5 MG/3 ML VIAL.NEB INH SCH ×4 (01:30→20:30)
[2018-06-26] MEDS: PIPERACILLIN/TAZO 3.375/DEX-IS 50 ML IV SCH ×4 (05:37→23:34)
[2018-06-26 09:46] VITALS: BP_SYST 118
[2018-06-26] MEDS: PANTOPRAZOLE SODIUM 40 MG TAB PO SCH (09:47)
[2018-06-26] MEDS: PREDNISONE 10 MG TABLET PO SCH ×2 (09:47→20:08)
[2018-06-26] MEDS: ENOXAPARIN SODIUM 40 MG/0.4 ML SYRINGE SUBCUT SCH (09:48)
[2018-06-26] MEDS: LEVOFLOXACIN 500 MG/D5W 100 ML IV SCH (09:56)
[2018-06-26 12:23] VITALS: BP_SYST 123
[2018-06-26 16:46] VITALS: BP_SYST 100
[2018-06-26 20:00] VITALS: BP_SYST 113
[2018-06-26] MEDS: guaiFENesin ER 600 MG TAB PO SCH (20:08)
[2018-06-27 04:44] VITALS: BP_SYST 110
[2018-06-27] MEDS: PIPERACILLIN/TAZO 3.375/DEX-IS 50 ML IV SCH ×2 (06:20→12:19)
[2018-06-27] MEDS: ALBUTEROL SULFATE 0.083% 2.5 MG/3 ML VIAL.NEB INH SCH ×2 (07:00→13:29)
[2018-06-27] MEDS: IPRATROPIUM BROM 0.5 MG/2.5 ML VIAL.NEB (ATROVENT) INH SCH ×2 (07:00→13:29)
[2018-06-27 08:00] VITALS: BP_SYST 105
[2018-06-27] MEDS: PREDNISONE 10 MG TABLET PO SCH (09:37)
[2018-06-27] MEDS: LEVOFLOXACIN 500 MG/D5W 100 ML IV SCH (09:37)
[2018-06-27] MEDS: PANTOPRAZOLE SODIUM 40 MG TAB PO SCH (09:38)
[2018-06-27] MEDS: ENOXAPARIN SODIUM 40 MG/0.4 ML SYRINGE SUBCUT SCH (09:38)
[2018-06-27] MEDS: guaiFENesin ER 600 MG TAB PO SCH (09:47)
[2018-06-27] MEDS ORDERED: HYDROcodone/ACETAMIN 5-325 MG TAB (NORCO/ VICODIN) PO PRN (10:00)
[2018-06-27 12:02] VITALS: BP_SYST 104
[2018-06-27 13:25] VITALS: BP_SYST 104
[2018-06-27 16:02] VITALS: BP_SYST 109
[2018-06-27] MEDS ORDERED: PIPERACILLIN/TAZO 3.375/DEX-IS 50 ML IV SCH (18:00)
[2018-06-27 18:11] VITALS: BP_SYST 109
[2018-06-28] MEDS ORDERED: LEVOFLOXACIN 500 MG/D5W 100 ML IV SCH (09:00)
== END 2018-06-27 18:50 | disposition home or self-care (01) | DRG 177 ==
LOC: SED 13:13 → STU 14:58 → SMU 06-24 11:13
PROVIDERS: ADMIT Internal Medicine; ATTEND Internal Medicine
DX: J85.0 Gangrene and necrosis of lung (principal); E43 Unspecified severe protein-calorie malnutrition; D64.9 Anemia, unspecified; I10 Essential (primary) hypertension; K21.9 Gastro-esophageal reflux disease without esophagitis; M47.9 Spondylosis, unspecified; F10.129 Alcohol abuse with intoxication, unspecified; J44.9 Chronic obstructive pulmonary disease, unspecified; Z87.891 Personal history of nicotine dependence; B96.89 Other specified bacterial agents as the cause of diseases classified elsewhere
CPT/HCPCS: 36415; 36600; 70450-TC; 71045; 71275; 80053; 80307; 81003; 82150-TC; 82550-TC; 82803-TC; 83605; 83690-TC; 84484; 85007; 85025; 85027; 85610-TC; 85730-TC; 86480; 87040-TC; 87070-TC; 87081; 87116; 87205-TC; 93005; 94640; 94760; 96361; 96365; 96367; 96375; 99285; G0481; G0482; J0456; J0696; J1030; J1650; J1956; J2543; J2930; J7512; J7613; Q9967

== ENCOUNTER 2018-10-30 21:51 | Inpatient (IN) | payer OTHER ==
[~2018-10-30] VITALS: Ht 170.2 cm; Wt 59.9 kg
[~2018-10-30 21:51] MED LIST changes: -AZIT500T2 PO; -MED4 PO
[2018-10-30 21:52] VITALS: BP_SYST 160
[2018-10-30 23:00] LABS: HEMATOCRIT 44.6 % (36-54); HEMOGLOBIN 14.5 g/dL (14.0-18.0); RED BLOOD CELL COUNT(AUTO) 4.96 MIL/uL (4.2-6.2); WHITE BLOOD COUNT (AUTO) 13.2 K/uL (4.8-10.8)
[2018-10-30 23:01] LABS: BASOPHILS % (AUTO) 0.4 % (0.0-2.0); EOSINOPHILS % (AUTO) 0.2 % (0.0-4.0); LYMPHOCYTES # (AUTO) 1.7 K/uL (1.0-5.5); LYMPHOCYTES % (AUTO) 13.2 % (20.5-51.5); MEAN CORPUSCULAR HEMOGLOBIN 29 pg (27-31); MEAN CORPUSCULAR HGB CONC 33 % (32-36); MEAN CORPUSCULAR VOLUME 90 fL (79.0-98.0); MONOCYTES # (AUTO) 1.1 K/uL (0.0-1.0); MONOCYTES % (AUTO) 8.6 % (1.7-9.3); NEUTROPHILS # (AUTO) 10.2 K/uL (1.8-7.7); NEUTROPHILS % (AUTO) 77.6 % (40.0-70.0); PLATELET COUNT (AUTO) 197 K/uL (130-430); RED CELL DISTRIBUTION WIDTH 13.5 % (9.0-15.0)
[2018-10-30 23:02] LABS: BASOPHILS # (AUTO) 0.1 K/uL (0.0-0.2)
[2018-10-30 23:05] LABS: INR 0.9 (0.80-1.20); PROTHROMBIN TIME 9.2 SECS (9.5-12.5)
[2018-10-30] MEDS ORDERED: methylPREDNISolone SOD SUCC/PF 62.5 MG/ML VIAL IVP ONE (23:15)
[2018-10-30] MEDS ORDERED: IPRATROPIUM BROM 0.5 MG/2.5 ML VIAL.NEB (ATROVENT) IH ONE (23:15)
[2018-10-30] MEDS ORDERED: LevALBUTEROL HCL 1.25 MG/0.5 ML *CONC.* VIAL.NEB (XOPENEX CONC.) INH ONE (23:15)
[2018-10-30 23:17] LABS: CREATININE 0.86 mg/dL (0.55-1.30); POTASSIUM 3.1 mmol/L (3.5-5.1)
[2018-10-30 23:27] LABS: ALBUMIN 3.1 g/dL (3.4-4.8); TOTAL BILIRUBIN 0.3 mg/dL (0.0-1.0)
[2018-10-31] MEDS ORDERED: POTASSIUM CHLORIDE 20 MEQ TAB.PRT.SR PO ONE (00:30)
[2018-10-31] MEDS ORDERED: BENZONATATE 100 MG CAPSULE (TESSALON) PO ONE (00:45)
[2018-10-31] MEDS ORDERED: FLUT1BLS5 IH (00:46)
[2018-10-31] MEDS ORDERED: PRED20TA PO (00:46)
[2018-10-31] MEDS ORDERED: LevALBUTEROL HCL 1.25 MG/0.5 ML *CONC.* VIAL.NEB (XOPENEX CONC.) INH ONE (01:00)
[2018-10-31] MEDS ORDERED: BENZONATATE 100 MG CAPSULE (TESSALON) ONE (01:00)
[2018-10-31] MEDS ORDERED: LEVOFLOXACIN 500 MG/D5W 100 ML IV SCH (02:00)
[2018-10-31 02:36] VITALS: BP_SYST 150
[2018-10-31] MEDS ORDERED: LEVOFLOXACIN 500 MG/D5W 100 ML IV ONE (03:03)
[2018-10-31] MEDS: LEVOFLOXACIN 500 MG/D5W 100 ML IV SCH (03:23)
[2018-10-31] MEDS: IPRATROPIUM BROM 0.5 MG/2.5 ML VIAL.NEB (ATROVENT) INH PRN ×2 (05:34→12:41)
[2018-10-31] MEDS: LevALBUTEROL HCL 1.25 MG/0.5 ML *CONC.* VIAL.NEB (XOPENEX CONC.) INH PRN ×2 (05:34→12:41)
[2018-10-31 05:57] VITALS: BP_SYST 150
[2018-10-31] MEDS: methylPREDNISolone SOD SUCC/PF 62.5 MG/ML VIAL IVP SCH ×3 (06:11→17:20)
[2018-10-31 08:01] VITALS: BP_SYST 128
[2018-10-31] MEDS ORDERED: ACETAMINOPHEN 325 MG TABLET PO PRN (08:15)
[2018-10-31] MEDS ORDERED: ONDANSETRON HCL 4 MG/2 ML VIAL IVP PRN (08:15)
[2018-10-31] MEDS ORDERED: MAGNESIUM SULFATE 50 ML IV ONE (09:00)
[2018-10-31] MEDS: POTASSIUM CHLORIDE 20 MEQ TAB.PRT.SR PO SCH (10:03)
[2018-10-31] MEDS: guaiFENesin ER 600 MG TAB PO SCH ×2 (10:03→21:31)
[2018-10-31] MEDS ORDERED: FUROSEMIDE 20 MG/2 ML VIAL IVP ONE (13:00)
[2018-10-31] MEDS ORDERED: IPRATROPIUM BROM 0.5 MG/2.5 ML VIAL.NEB (ATROVENT) INH PRN (13:00)
[2018-10-31] MEDS ORDERED: LevALBUTEROL HCL 1.25 MG/0.5 ML *CONC.* VIAL.NEB (XOPENEX CONC.) INH PRN (13:00)
[2018-10-31 13:01] VITALS: BP_SYST 123
[2018-10-31 16:46] VITALS: BP_SYST 133
[2018-10-31] MEDS ORDERED: MONTELUKAST 10 MG TABLET PO SCH (18:00)
[2018-10-31 20:36] VITALS: BP_SYST 135
[2018-11-01] MEDS: methylPREDNISolone SOD SUCC/PF 62.5 MG/ML VIAL IVP SCH ×3 (00:16→11:25)
[2018-11-01] MEDS: LEVOFLOXACIN 500 MG/D5W 100 ML IV SCH (02:12)
[2018-11-01 03:24] VITALS: BP_SYST 143
[2018-11-01 07:42] LABS: ALBUMIN 2.8 g/dL (3.4-4.8); CALCIUM 9.4 mg/dL (8.4-11.0); CREATININE 0.76 mg/dL (0.55-1.30); POTASSIUM 4.1 mmol/L (3.5-5.1); TOTAL BILIRUBIN 0.5 mg/dL (0.0-1.0)
[2018-11-01 07:57] VITALS: BP_SYST 133
[2018-11-01] MEDS: guaiFENesin ER 600 MG TAB PO SCH (08:28)
[2018-11-01] MEDS: POTASSIUM CHLORIDE 20 MEQ TAB.PRT.SR PO SCH (08:28)
[2018-11-01 08:46] LABS: BASOPHILS % (AUTO) 0.2 % (0.0-2.0); HEMATOCRIT 40.9 % (36-54); HEMOGLOBIN 13.5 g/dL (14.0-18.0); LYMPHOCYTES # (AUTO) 0.5 K/uL (1.0-5.5); LYMPHOCYTES % (AUTO) 4.6 % (20.5-51.5); MEAN CORPUSCULAR HEMOGLOBIN 30 pg (27-31); MEAN CORPUSCULAR HGB CONC 33 % (32-36); MEAN CORPUSCULAR VOLUME 90 fL (79.0-98.0); MONOCYTES # (AUTO) 0.3 K/uL (0.0-1.0); MONOCYTES % (AUTO) 2.9 % (1.7-9.3); NEUTROPHILS % (AUTO) 92.3 % (40.0-70.0); PLATELET COUNT (AUTO) 177 K/uL (130-430); RED BLOOD CELL COUNT(AUTO) 4.54 MIL/uL (4.2-6.2); RED CELL DISTRIBUTION WIDTH 13.6 % (9.0-15.0); WHITE BLOOD COUNT (AUTO) 11.9 K/uL (4.8-10.8)
[2018-11-01 13:40] VITALS: BP_SYST 129
[2018-11-01 13:56] VITALS: BP_SYST 131
== END 2018-11-01 14:50 | disposition home or self-care (01) | DRG 191 ==
LOC: SED 21:51 → SMU 10-31 01:13
PROVIDERS: ADMIT Internal Medicine Hospice and Palliative Medicine; ATTEND Internal Medicine Hospice and Palliative Medicine
DX: J44.1 Chronic obstructive pulmonary disease with (acute) exacerbation (principal); E44.1 Mild protein-calorie malnutrition; R09.02 Hypoxemia; E78.5 Hyperlipidemia, unspecified; G89.29 Other chronic pain; K21.9 Gastro-esophageal reflux disease without esophagitis; Z99.81 Dependence on supplemental oxygen; M19.90 Unspecified osteoarthritis, unspecified site; E78.00 Pure hypercholesterolemia, unspecified; F17.210 Nicotine dependence, cigarettes, uncomplicated; J40 Bronchitis, not specified as acute or chronic
CPT/HCPCS: 36415; 71045; 71250-TC; 80053; 82378; 83605; 84484; 85025; 85610-TC; 87040-TC; 93005; 94640; 94760; 96374; 99285; J1940; J1956; J2930; J3475; J7040; J7612

== ENCOUNTER 2018-12-06 19:31 | Inpatient (IN) | payer OTHER ==
[~2018-12-06] VITALS: Ht 170.2 cm; Wt 57.7 kg
[~2018-12-06 19:31] MED LIST changes: -ALBMDI INH; -BUDE6HFA INH; +FLUT1BLS5 IH; -IPRA4AER INH
[2018-12-06 19:37] VITALS: BP_SYST 195
[2018-12-06] MEDS ORDERED: methylPREDNISolone SOD SUCC/PF 62.5 MG/ML VIAL ONE (19:56)
[2018-12-06] MEDS ORDERED: methylPREDNISolone SOD SUCC/PF 62.5 MG/ML VIAL IVP ONE (20:00)
[2018-12-06] MEDS ORDERED: IPRATROPIUM/ALBUTEROL SULFATE 3 ML AMPUL.NEB (DUONEB) INH ONE (20:15)
[2018-12-06 20:17] LABS: BASOPHILS % (AUTO) 0.3 % (0.0-2.0); HEMATOCRIT 47.3 % (36-54); HEMOGLOBIN 15.9 g/dL (14.0-18.0); LYMPHOCYTES # (AUTO) 1.5 K/uL (1.0-5.5); LYMPHOCYTES % (AUTO) 11.7 % (20.5-51.5); MEAN CORPUSCULAR HEMOGLOBIN 29 pg (27-31); MEAN CORPUSCULAR HGB CONC 34 % (32-36); MEAN CORPUSCULAR VOLUME 88 fL (79.0-98.0); MONOCYTES # (AUTO) 0.9 K/uL (0.0-1.0); MONOCYTES % (AUTO) 7.3 % (1.7-9.3); NEUTROPHILS # (AUTO) 10.6 K/uL (1.8-7.7); NEUTROPHILS % (AUTO) 80.7 % (40.0-70.0); PLATELET COUNT (AUTO) 252 K/uL (130-430); RED CELL DISTRIBUTION WIDTH 13.7 % (9.0-15.0); WHITE BLOOD COUNT (AUTO) 13.1 K/uL (4.8-10.8)
[2018-12-06 20:21] LABS: CALCIUM 9.3 mg/dL (8.4-11.0); CREATININE 1.01 mg/dL (0.55-1.30); POTASSIUM 4.1 mmol/L (3.5-5.1)
[2018-12-06 20:26] LABS: PROTHROMBIN TIME 8.9 SECS (9.5-12.5)
[2018-12-06 20:27] LABS: ALBUMIN 3.3 g/dL (3.4-4.8); TOTAL BILIRUBIN 0.3 mg/dL (0.0-1.0)
[2018-12-06 20:41] LABS: INR 0.8 (0.80-1.20)
[2018-12-06] MEDS ORDERED: NACL 0.9% 1,000 ML IV ONE (22:00)
[2018-12-06] MEDS ORDERED: cefTRIAXone 1 GM IVPB PREMIX 50 ML IV ONE (22:00)
[2018-12-06] MEDS ORDERED: IOHEXOL 350 mgI/mL, 150 ML INFUS..BTL IV ONE (22:36)
[2018-12-07 01:20] VITALS: BP_SYST 159
[2018-12-07] MEDS ORDERED: PRED20TA PO (01:33)
[2018-12-07] MEDS ORDERED: ONDANSETRON HCL 4 MG/2 ML VIAL IVP PRN (02:00)
[2018-12-07] MEDS ORDERED: ACETAMINOPHEN 325 MG TABLET PO PRN (02:00)
[2018-12-07] MEDS: AZITHROMYCIN 500 MG in NS 250 ML IV SCH (02:00)
[2018-12-07] MEDS ORDERED: HYDROcodone/ACETAMIN 5-325 MG TAB (NORCO/ VICODIN) PO PRN (02:00)
[2018-12-07 02:26] VITALS: BP_SYST 144
[2018-12-07] MEDS: ALBUTEROL SULFATE 0.083% 2.5 MG/3 ML VIAL.NEB INH PRN ×4 (02:42→19:52)
[2018-12-07] MEDS ORDERED: AZITHROMYCIN 500 MG/VIAL (ZITHROMAX) IV ONE (03:32)
[2018-12-07] MEDS: HYDROcodone/ACETAMIN 10-325 MG TAB PO PRN ×3 (04:08→21:29)
[2018-12-07] MEDS: methylPREDNISolone SOD SUCC/PF 62.5 MG/ML VIAL IVP SCH ×3 (05:48→21:25)
[2018-12-07 06:57] LABS: BASOPHILS % (AUTO) 0.2 % (0.0-2.0); HEMATOCRIT 35.3 % (36-54); LYMPHOCYTES # (AUTO) 0.4 K/uL (1.0-5.5); LYMPHOCYTES % (AUTO) 3.9 % (20.5-51.5); MEAN CORPUSCULAR HEMOGLOBIN 30 pg (27-31); MEAN CORPUSCULAR HGB CONC 34 % (32-36); MEAN CORPUSCULAR VOLUME 87 fL (79.0-98.0); MONOCYTES # (AUTO) 0.4 K/uL (0.0-1.0); MONOCYTES % (AUTO) 4.5 % (1.7-9.3); NEUTROPHILS # (AUTO) 8.8 K/uL (1.8-7.7); NEUTROPHILS % (AUTO) 91.4 % (40.0-70.0); PLATELET COUNT (AUTO) 154 K/uL (130-430); RED BLOOD CELL COUNT(AUTO) 4.06 MIL/uL (4.2-6.2); RED CELL DISTRIBUTION WIDTH 13.6 % (9.0-15.0)
[2018-12-07 07:16] LABS: CALCIUM 8.4 mg/dL (8.4-11.0); CREATININE 0.76 mg/dL (0.55-1.30); POTASSIUM 3.8 mmol/L (3.5-5.1)
[2018-12-07 07:23] LABS: ALBUMIN 2.4 g/dL (3.4-4.8); TOTAL BILIRUBIN 0.3 mg/dL (0.0-1.0)
[2018-12-07 07:40] LABS: WHITE BLOOD COUNT (AUTO) 9.6 K/uL (4.8-10.8)
[2018-12-07 08:00] VITALS: BP_SYST 164
[2018-12-07] MEDS: FAMOTIDINE 20 MG TABLET PO SCH (09:23)
[2018-12-07 12:02] VITALS: BP_SYST 131
[2018-12-07 16:02] VITALS: BP_SYST 156
[2018-12-07 19:55] VITALS: BP_SYST 141
[2018-12-07] MEDS: BUDESONIDE 0.5 MG/2 ML AMPUL.NEB INH SCH (19:59)
[2018-12-07] MEDS ORDERED: BUDESONIDE 0.5 MG/2 ML AMPUL.NEB ONE (20:09)
[2018-12-07] MEDS: cefTRIAXone 1 GM IVPB PREMIX 50 ML IV SCH (21:27)
[2018-12-08 01:54] VITALS: BP_SYST 150
[2018-12-08] MEDS: AZITHROMYCIN 500 MG in NS 250 ML IV SCH (02:11)
[2018-12-08] MEDS: methylPREDNISolone SOD SUCC/PF 62.5 MG/ML VIAL IVP SCH ×3 (06:02→21:45)
[2018-12-08] MEDS: BUDESONIDE 0.5 MG/2 ML AMPUL.NEB INH SCH ×2 (07:34→20:11)
[2018-12-08 07:39] LABS: BASOPHILS % (AUTO) 0.1 % (0.0-2.0); HEMATOCRIT 37.6 % (36-54); HEMOGLOBIN 12.4 g/dL (14.0-18.0); LYMPHOCYTES # (AUTO) 0.4 K/uL (1.0-5.5); LYMPHOCYTES % (AUTO) 4.1 % (20.5-51.5); MEAN CORPUSCULAR HEMOGLOBIN 29 pg (27-31); MEAN CORPUSCULAR HGB CONC 33 % (32-36); MEAN CORPUSCULAR VOLUME 88 fL (79.0-98.0); MONOCYTES # (AUTO) 0.5 K/uL (0.0-1.0); MONOCYTES % (AUTO) 4.7 % (1.7-9.3); NEUTROPHILS # (AUTO) 9.4 K/uL (1.8-7.7); NEUTROPHILS % (AUTO) 91.1 % (40.0-70.0); PLATELET COUNT (AUTO) 162 K/uL (130-430); RED BLOOD CELL COUNT(AUTO) 4.27 MIL/uL (4.2-6.2); WHITE BLOOD COUNT (AUTO) 10.3 K/uL (4.8-10.8)
[2018-12-08 07:51] LABS: CALCIUM 9.1 mg/dL (8.4-11.0); CREATININE 0.83 mg/dL (0.55-1.30); POTASSIUM 4.6 mmol/L (3.5-5.1)
[2018-12-08 08:03] LABS: ALBUMIN 2.7 g/dL (3.4-4.8); TOTAL BILIRUBIN 0.3 mg/dL (0.0-1.0)
[2018-12-08 08:40] VITALS: BP_SYST 156
[2018-12-08] MEDS: FAMOTIDINE 20 MG TABLET PO SCH (08:52)
[2018-12-08] MEDS: ENOXAPARIN SODIUM 40 MG/0.4 ML SYRINGE SUBCUT SCH (10:16)
[2018-12-08] MEDS: cloNIDine HCL 0.1 MG TABLET PO PRN (11:12)
[2018-12-08 12:30] VITALS: BP_SYST 162
[2018-12-08 16:34] VITALS: BP_SYST 130
[2018-12-08] MEDS: IPRATROPIUM BROM 0.5 MG/2.5 ML VIAL.NEB (ATROVENT) INH SCH ×2 (17:46→20:10)
[2018-12-08] MEDS: ALBUTEROL SULFATE 0.083% 2.5 MG/3 ML VIAL.NEB INH SCH ×2 (17:46→20:10)
[2018-12-08] MEDS: HYDROcodone/ACETAMIN 10-325 MG TAB PO PRN (21:55)
[2018-12-08] MEDS: cefTRIAXone 1 GM IVPB PREMIX 50 ML IV SCH (21:59)
[2018-12-08 23:20] VITALS: BP_SYST 142
[2018-12-09] MEDS: IPRATROPIUM BROM 0.5 MG/2.5 ML VIAL.NEB (ATROVENT) INH SCH ×4 (00:10→19:44)
[2018-12-09] MEDS: ALBUTEROL SULFATE 0.083% 2.5 MG/3 ML VIAL.NEB INH SCH ×4 (00:10→19:44)
[2018-12-09] MEDS: AZITHROMYCIN 500 MG in NS 250 ML IV SCH (00:58)
[2018-12-09] MEDS: HYDROcodone/ACETAMIN 10-325 MG TAB PO PRN ×3 (02:02→14:04)
[2018-12-09] MEDS: methylPREDNISolone SOD SUCC/PF 62.5 MG/ML VIAL IVP SCH ×3 (05:25→22:37)
[2018-12-09] MEDS: BUDESONIDE 0.5 MG/2 ML AMPUL.NEB INH SCH ×2 (07:15→19:57)
[2018-12-09 08:00] VITALS: BP_SYST 172
[2018-12-09] MEDS: FAMOTIDINE 20 MG TABLET PO SCH (08:38)
[2018-12-09] MEDS: ENOXAPARIN SODIUM 40 MG/0.4 ML SYRINGE SUBCUT SCH (09:33)
[2018-12-09] MEDS: cloNIDine HCL 0.1 MG TABLET PO PRN (11:28)
[2018-12-09 12:56] VITALS: BP_SYST 162
[2018-12-09 16:20] VITALS: BP_SYST 126
[2018-12-09 20:00] VITALS: BP_SYST 137
[2018-12-09] MEDS: cefTRIAXone 1 GM IVPB PREMIX 50 ML IV SCH (22:37)
[2018-12-10 00:15] VITALS: BP_SYST 143
[2018-12-10] MEDS: AZITHROMYCIN 500 MG in NS 250 ML IV SCH (01:09)
[2018-12-10] MEDS: ALBUTEROL SULFATE 0.083% 2.5 MG/3 ML VIAL.NEB INH SCH ×2 (01:46→07:25)
[2018-12-10] MEDS: IPRATROPIUM BROM 0.5 MG/2.5 ML VIAL.NEB (ATROVENT) INH SCH ×2 (01:46→07:26)
[2018-12-10] MEDS: methylPREDNISolone SOD SUCC/PF 62.5 MG/ML VIAL IVP SCH (05:17)
[2018-12-10] MEDS: BUDESONIDE 0.5 MG/2 ML AMPUL.NEB INH SCH (07:26)
[2018-12-10 08:00] VITALS: BP_SYST 155
[2018-12-10] MEDS: FAMOTIDINE 20 MG TABLET PO SCH (09:32)
[2018-12-10] MEDS: ENOXAPARIN SODIUM 40 MG/0.4 ML SYRINGE SUBCUT SCH (09:32)
[2018-12-10 09:53] VITALS: BP_SYST 143
[2018-12-10 12:25] VITALS: BP_SYST 139
== END 2018-12-10 13:00 | disposition home or self-care (01) | DRG 189 ==
LOC: SED 19:31 → STU 12-07 00:57 → SMU 12-08 09:53
PROVIDERS: ADMIT Internal Medicine; ATTEND Internal Medicine
DX: J96.00 Acute respiratory failure, unspecified whether with hypoxia or hypercapnia (principal); E87.2 Acidosis; K21.9 Gastro-esophageal reflux disease without esophagitis; M47.9 Spondylosis, unspecified; I10 Essential (primary) hypertension; F17.210 Nicotine dependence, cigarettes, uncomplicated; E78.5 Hyperlipidemia, unspecified; G62.9 Polyneuropathy, unspecified; J43.9 Emphysema, unspecified; J98.4 Other disorders of lung; K44.9 Diaphragmatic hernia without obstruction or gangrene
CPT/HCPCS: 36415; 36600; 71045; 71275; 80053; 82803-TC; 83605; 83735-TC; 83880; 84484; 85025; 85379; 85610-TC; 87040-TC; 93306; 94640; 94760; 96361; 96374; 96375; 99291; G0378; J0456; J0696; J1650; J2930; J7030; J7050; J7613; J7620; J7626; Q9967

== ENCOUNTER 2018-12-26 19:02 | Inpatient (IN) | payer OTHER ==
[~2018-12-26] VITALS: Ht 170.2 cm; Wt 55.8 kg
[~2018-12-26 19:02] MED LIST changes: +PRED20TA PO
[2018-12-26 19:05] VITALS: BP_SYST 153
[2018-12-26] MEDS ORDERED: NACL 0.9% 1,000 ML IV ONE (19:30)
[2018-12-26 19:36] LABS: BASOPHILS % (AUTO) 0.5 % (0.0-2.0); EOSINOPHILS % (AUTO) 0.2 % (0.0-4.0); HEMOGLOBIN 12.4 g/dL (14.0-18.0); LYMPHOCYTES # (AUTO) 2.1 K/uL (1.0-5.5); LYMPHOCYTES % (AUTO) 27.5 % (20.5-51.5); MEAN CORPUSCULAR HEMOGLOBIN 30 pg (27-31); MEAN CORPUSCULAR HGB CONC 34 % (32-36); MEAN CORPUSCULAR VOLUME 89 fL (79.0-98.0); MONOCYTES # (AUTO) 0.5 K/uL (0.0-1.0); MONOCYTES % (AUTO) 6.8 % (1.7-9.3); PLATELET COUNT (AUTO) 139 K/uL (130-430); RED BLOOD CELL COUNT(AUTO) 4.15 MIL/uL (4.2-6.2); RED CELL DISTRIBUTION WIDTH 14.2 % (9.0-15.0); WHITE BLOOD COUNT (AUTO) 7.7 K/uL (4.8-10.8)
[2018-12-26 19:46] LABS: CALCIUM 10.2 mg/dL (8.4-11.0); CREATININE 0.82 mg/dL (0.55-1.30); POTASSIUM 3.7 mmol/L (3.5-5.1)
[2018-12-26 19:51] LABS: TOTAL BILIRUBIN 0.7 mg/dL (0.0-1.0)
[2018-12-26] MEDS ORDERED: NS 500 ML IV ONE (20:00)
[2018-12-26] MEDS ORDERED: IPRATROPIUM/ALBUTEROL SULFATE 3 ML AMPUL.NEB (DUONEB) INH ONE ×3 (20:00→23:45)
[2018-12-26] MEDS ORDERED: MAGNESIUM SULFATE 50 ML IV ONE (20:00)
[2018-12-26] MEDS ORDERED: methylPREDNISolone SOD SUCC/PF 62.5 MG/ML VIAL IVP ONE (20:00)
[2018-12-26 20:43] LABS: INR 0.9 (0.80-1.20); PROTHROMBIN TIME 8.9 SECS (9.5-12.5)
[2018-12-26] MEDS ORDERED: NACL 0.9% 1,800 ML IV ONE (20:45)
[2018-12-27 00:16] VITALS: BP_SYST 144
[2018-12-27] MEDS: IPRATROPIUM/ALBUTEROL SULFATE 3 ML AMPUL.NEB (DUONEB) INH SCH ×5 (01:00→23:15)
[2018-12-27 03:20] VITALS: BP_SYST 144
[2018-12-27 08:12] VITALS: BP_SYST 119
[2018-12-27] MEDS ORDERED: MAGNESIUM SULFATE 50 ML IV PRN (08:30)
[2018-12-27] MEDS ORDERED: LORazepam 2 MG/ML VIAL IVP PRN (08:30)
[2018-12-27] MEDS ORDERED: ZOLPIDEM TARTRATE 5 MG TABLET PO PRN (08:30)
[2018-12-27] MEDS ORDERED: ACETAMINOPHEN 325 MG TABLET PO PRN (08:30)
[2018-12-27] MEDS ORDERED: POTASSIUM CHLORIDE 20 MEQ TAB.PRT.SR PO PRN (08:30)
[2018-12-27] MEDS ORDERED: DOCUSATE SODIUM 100 MG CAPSULE PO PRN (08:30)
[2018-12-27] MEDS ORDERED: MORPHINE 2 MG/ML INJ. SYRINGE IVP PRN ×2 (08:30)
[2018-12-27] MEDS ORDERED: ONDANSETRON HCL 4 MG/2 ML VIAL IVP PRN (08:30)
[2018-12-27] MEDS ORDERED: MUPIROCIN 2% TOPICAL OINTMENT 22 GM NS PRN (08:30)
[2018-12-27] MEDS: methylPREDNISolone SOD SUCC/PF 62.5 MG/ML VIAL IVP SCH ×2 (08:43→20:47)
[2018-12-27] MEDS ORDERED: NON-FORMULARY MEDICATION (Fluticasone/Umeclidin/Vilanter (Trelegy Ellipta 100-62.5-25) 1 E IH SCH (09:00)
[2018-12-27] MEDS ORDERED: methylPREDNISolone SOD SUCC/PF 62.5 MG/ML VIAL IVP ONE (09:00)
[2018-12-27] MEDS: BUDESONIDE 0.5 MG/2 ML AMPUL.NEB INH SCH ×2 (09:00→19:11)
[2018-12-27] MEDS: HEPARIN SODIUM,PORCINE 5000 UNITS/ML VIAL SUBCUT SCH ×2 (10:12→20:50)
[2018-12-27] MEDS: cefTRIAXone 1 GM in D5W 50 ML IV SCH (10:13)
[2018-12-27] MEDS ORDERED: IOHEXOL 100 ML IV ONE (10:41)
[2018-12-27 11:14] VITALS: BP_SYST 152
[2018-12-27] MEDS: AZITHROMYCIN 250 MG in NS 250 ML IV SCH (11:42)
[2018-12-27 15:49] VITALS: BP_SYST 115
[2018-12-27] MEDS ORDERED: BUDESONIDE 0.5 MG/2 ML AMPUL.NEB INH SCH (19:00)
[2018-12-27 20:00] VITALS: BP_SYST 116
[2018-12-28] VITALS: BP_SYST 134
[2018-12-28] MEDS: IPRATROPIUM/ALBUTEROL SULFATE 3 ML AMPUL.NEB (DUONEB) INH SCH ×6 (02:50→23:00)
[2018-12-28 06:47] LABS: BASOPHILS % (AUTO) 0.1 % (0.0-2.0); HEMATOCRIT 27.5 % (36-54); HEMOGLOBIN 9.2 g/dL (14.0-18.0); LYMPHOCYTES # (AUTO) 0.3 K/uL (1.0-5.5); LYMPHOCYTES % (AUTO) 4.4 % (20.5-51.5); MEAN CORPUSCULAR HEMOGLOBIN 30 pg (27-31); MEAN CORPUSCULAR HGB CONC 34 % (32-36); MEAN CORPUSCULAR VOLUME 89 fL (79.0-98.0); MONOCYTES # (AUTO) 0.4 K/uL (0.0-1.0); MONOCYTES % (AUTO) 5.2 % (1.7-9.3); NEUTROPHILS # (AUTO) 6.8 K/uL (1.8-7.7); NEUTROPHILS % (AUTO) 90.3 % (40.0-70.0); PLATELET COUNT (AUTO) 112 K/uL (130-430); RED CELL DISTRIBUTION WIDTH 14.2 % (9.0-15.0); WHITE BLOOD COUNT (AUTO) 7.5 K/uL (4.8-10.8)
[2018-12-28] MEDS: BUDESONIDE 0.5 MG/2 ML AMPUL.NEB INH SCH ×2 (07:05→20:00)
[2018-12-28 08:19] LABS: CALCIUM 8.8 mg/dL (8.4-11.0); CREATININE 0.77 mg/dL (0.55-1.30); POTASSIUM 3.7 mmol/L (3.5-5.1)
[2018-12-28 08:23] VITALS: BP_SYST 120
[2018-12-28] MEDS: cefTRIAXone 1 GM in D5W 50 ML IV SCH (09:41)
[2018-12-28] MEDS: methylPREDNISolone SOD SUCC/PF 62.5 MG/ML VIAL IVP SCH ×2 (09:41→22:17)
[2018-12-28] MEDS: HEPARIN SODIUM,PORCINE 5000 UNITS/ML VIAL SUBCUT SCH ×2 (09:43→22:17)
[2018-12-28] MEDS: AZITHROMYCIN 250 MG in NS 250 ML IV SCH (10:45)
[2018-12-28 11:30] VITALS: BP_SYST 120
[2018-12-28] MEDS ORDERED: IPRATROPIUM BROM 0.5 MG/2.5 ML VIAL.NEB (ATROVENT) INH PRN (13:15)
[2018-12-28] MEDS ORDERED: ALBUTEROL SULFATE 0.083% 2.5 MG/3 ML VIAL.NEB INH PRN (13:15)
[2018-12-28 16:02] VITALS: BP_SYST 121
[2018-12-28 19:50] VITALS: BP_SYST 138
[2018-12-28 23:24] VITALS: BP_SYST 131
[2018-12-29] MEDS: IPRATROPIUM/ALBUTEROL SULFATE 3 ML AMPUL.NEB (DUONEB) INH SCH ×7 (01:00→23:35)
[2018-12-29 07:03] LABS: BASOPHILS % (AUTO) 0.1 % (0.0-2.0); HEMATOCRIT 29.2 % (36-54); HEMOGLOBIN 9.8 g/dL (14.0-18.0); LYMPHOCYTES # (AUTO) 0.4 K/uL (1.0-5.5); LYMPHOCYTES % (AUTO) 5.4 % (20.5-51.5); MEAN CORPUSCULAR HEMOGLOBIN 30 pg (27-31); MEAN CORPUSCULAR HGB CONC 34 % (32-36); MEAN CORPUSCULAR VOLUME 89 fL (79.0-98.0); MONOCYTES # (AUTO) 0.5 K/uL (0.0-1.0); NEUTROPHILS # (AUTO) 6.2 K/uL (1.8-7.7); NEUTROPHILS % (AUTO) 87.5 % (40.0-70.0); PLATELET COUNT (AUTO) 134 K/uL (130-430); RED CELL DISTRIBUTION WIDTH 14.4 % (9.0-15.0); WHITE BLOOD COUNT (AUTO) 7.1 K/uL (4.8-10.8)
[2018-12-29] MEDS: BUDESONIDE 0.5 MG/2 ML AMPUL.NEB INH SCH ×2 (07:10→19:43)
[2018-12-29 07:35] LABS: CALCIUM 9.3 mg/dL (8.4-11.0); CREATININE 0.66 mg/dL (0.55-1.30); POTASSIUM 3.9 mmol/L (3.5-5.1)
[2018-12-29 08:05] VITALS: BP_SYST 125
[2018-12-29] MEDS: methylPREDNISolone SOD SUCC/PF 62.5 MG/ML VIAL IVP SCH ×3 (08:32→22:19)
[2018-12-29] MEDS: cefTRIAXone 1 GM in D5W 50 ML IV SCH (08:32)
[2018-12-29] MEDS: HEPARIN SODIUM,PORCINE 5000 UNITS/ML VIAL SUBCUT SCH ×2 (08:33→22:22)
[2018-12-29] MEDS: AZITHROMYCIN 250 MG in NS 250 ML IV SCH (09:36)
[2018-12-29] MEDS ORDERED: guaiFENesin ER 600 MG TAB PO ONE (10:30)
[2018-12-29 11:16] VITALS: BP_SYST 132
[2018-12-29 15:27] VITALS: BP_SYST 140
[2018-12-29 20:00] VITALS: BP_SYST 136
[2018-12-29] MEDS: guaiFENesin ER 600 MG TAB PO SCH (22:19)
[2018-12-30 00:34] VITALS: BP_SYST 143
[2018-12-30] MEDS: IPRATROPIUM/ALBUTEROL SULFATE 3 ML AMPUL.NEB (DUONEB) INH SCH ×5 (03:33→20:04)
[2018-12-30] MEDS: methylPREDNISolone SOD SUCC/PF 62.5 MG/ML VIAL IVP SCH ×2 (06:24→15:31)
[2018-12-30 06:25] LABS: BASOPHILS % (AUTO) 0.1 % (0.0-2.0); HEMATOCRIT 27.7 % (36-54); HEMOGLOBIN 9.4 g/dL (14.0-18.0); LYMPHOCYTES # (AUTO) 0.5 K/uL (1.0-5.5); LYMPHOCYTES % (AUTO) 7.8 % (20.5-51.5); MEAN CORPUSCULAR HEMOGLOBIN 30 pg (27-31); MEAN CORPUSCULAR HGB CONC 34 % (32-36); MEAN CORPUSCULAR VOLUME 88 fL (79.0-98.0); MONOCYTES # (AUTO) 0.6 K/uL (0.0-1.0); NEUTROPHILS # (AUTO) 5.4 K/uL (1.8-7.7); NEUTROPHILS % (AUTO) 83.1 % (40.0-70.0); PLATELET COUNT (AUTO) 140 K/uL (130-430); RED BLOOD CELL COUNT(AUTO) 3.14 MIL/uL (4.2-6.2); RED CELL DISTRIBUTION WIDTH 14.4 % (9.0-15.0); WHITE BLOOD COUNT (AUTO) 6.5 K/uL (4.8-10.8)
[2018-12-30 07:06] LABS: CALCIUM 9.5 mg/dL (8.4-11.0); CREATININE 0.66 mg/dL (0.55-1.30); POTASSIUM 3.8 mmol/L (3.5-5.1)
[2018-12-30] MEDS: BUDESONIDE 0.5 MG/2 ML AMPUL.NEB INH SCH ×2 (07:08→20:05)
[2018-12-30 08:08] VITALS: BP_SYST 125
[2018-12-30] MEDS: guaiFENesin ER 600 MG TAB PO SCH (09:02)
[2018-12-30] MEDS: cefTRIAXone 1 GM in D5W 50 ML IV SCH (09:02)
[2018-12-30] MEDS: HEPARIN SODIUM,PORCINE 5000 UNITS/ML VIAL SUBCUT SCH (09:04)
[2018-12-30] MEDS: AZITHROMYCIN 250 MG in NS 250 ML IV SCH (09:48)
[2018-12-30 11:27] VITALS: BP_SYST 134
[2018-12-30 15:39] VITALS: BP_SYST 135
[2018-12-30] MEDS ORDERED: PRED20TA PO (20:47)
[2018-12-30 21:02] VITALS: BP_SYST 141
== END 2018-12-30 21:30 | disposition home or self-care (01) | DRG 189 ==
LOC: SED 19:02 → STU 23:37 → SMU 12-29 08:50
PROVIDERS: ADMIT General Practice; ATTEND General Practice
DX: J96.20 Acute and chronic respiratory failure, unspecified whether with hypoxia or hypercapnia (principal); E44.0 Moderate protein-calorie malnutrition; Z68.1 Body mass index [BMI] 19.9 or less, adult; J43.9 Emphysema, unspecified; G62.9 Polyneuropathy, unspecified; I10 Essential (primary) hypertension; J20.9 Acute bronchitis, unspecified; K21.9 Gastro-esophageal reflux disease without esophagitis; M47.9 Spondylosis, unspecified; D64.9 Anemia, unspecified; Z60.2 Problems related to living alone; F17.210 Nicotine dependence, cigarettes, uncomplicated; Z71.6 Tobacco abuse counseling; Z79.899 Other long term (current) drug therapy
CPT/HCPCS: 36415; 36600; 71045; 71260-TC; 80048; 80053; 82803-TC; 83036; 83605; 83735-TC; 83880; 84484; 85025; 85379; 85610-TC; 85730-TC; 87081; 93005; 94640; 94760; 96361; 96365; 96366; 96375; 99285; G0378; J0456; J0696; J1644; J2930; J3475; J7050; J7060; J7620; J7626; Q9967

== ENCOUNTER 2019-01-13 21:25 | Inpatient (IN) | payer OTHER ==
[~2019-01-13] VITALS: Ht 170.2 cm; Wt 54.4 kg
--- NOTE | 2019-01-13 21:30 | NUR ---
Placed in room 02 . Placed on athletic monitor, blood pressure machine and pulse oximeter. To gown for exam. Side rails up.
--- NOTE | 2019-01-13 21:32 | NUR ---
Pt brought by via wheelchair,A&Ox4, pt presents to ER with SOB and weakness, skin pink and warm, cap refill <3, VSS, pt using accesory muscles, skin pink and warm, will continue to monitor.
--- NOTE | 2019-01-13 21:35 | NUR ---
Dr Escobar at bedside examining patient
[2019-01-13 21:39] VITALS: BP_SYST 149
[2019-01-13] MEDS ORDERED: IPRATROPIUM/ALBUTEROL SULFATE 3 ML AMPUL.NEB (DUONEB) ONE (21:48)
[2019-01-13 22:15] LABS: HEMATOCRIT 33.1 % (36-54); MEAN CORPUSCULAR HEMOGLOBIN 30 pg (27-31); MEAN CORPUSCULAR HGB CONC 33 % (32-36); MEAN CORPUSCULAR VOLUME 92 fL (79.0-98.0); PLATELET COUNT (AUTO) 170 K/uL (130-430); RED BLOOD CELL COUNT(AUTO) 3.61 MIL/uL (4.2-6.2); RED CELL DISTRIBUTION WIDTH 15.8 % (9.0-15.0); WHITE BLOOD COUNT (AUTO) 9.1 K/uL (4.8-10.8)
[2019-01-13 22:33] LABS: CALCIUM 9.9 mg/dL (8.4-11.0); CREATININE 0.81 mg/dL (0.55-1.30); POTASSIUM 3.9 mmol/L (3.5-5.1)
[2019-01-13 22:42] LABS: ALBUMIN 2.8 g/dL (3.4-4.8); TOTAL BILIRUBIN 0.5 mg/dL (0.0-1.0)
[2019-01-13 22:45] LABS: BAND % (MANUAL) 8 % (0-6); BASOPHILS % (MANUAL) 0 % (0-2); EOSINOPHILS % (MANUAL) 0 % (0-7); INR 0.9 (0.80-1.20); LYMPHOCYTES % (MANUAL) 13 % (20-46); MONOCYTES % (MANUAL) 5 % (0-11); PROTHROMBIN TIME 9.1 SECS (9.5-12.5)
[2019-01-13] MEDS ORDERED: methylPREDNISolone SOD SUCC/PF 62.5 MG/ML VIAL IVP ONE (23:15)
[2019-01-13] MEDS ORDERED: FUROSEMIDE 20 MG/2 ML VIAL IVP ONE (23:30)
--- NOTE | 2019-01-13 23:30 | NUR ---
Medication was given, pt tolerated well. No adverse reaction, will continue to monitor.
--- NOTE | 2019-01-14 | NUR ---
Medication was given, pt tolerated well. No adverse reaction, will continue to monitor.
--- NOTE | 2019-01-14 01:28 | NUR ---
Urine was collected and sent to lab.
[2019-01-14 01:50] LABS: BILIRUBIN,URINE NEGATIVE (NEGATIVE); BLOOD, URINE 2+ (NEGATIVE); CLARITY/URINE CLEAR (CLEAR); COLOR,URINE YELLOW (YELLOW); GLUCOSE,URINE NEGATIVE (NEGATIVE); KETONES,URINE NEGATIVE (NEGATIVE); LEUKOCYTE ESTERASE ,URINE NEGATIVE (NEGATIVE); NITRITE, URINE NEGATIVE (NEGATIVE); PH,URINE 5.5 (5.0-8.0); PROTEIN URINE NEGATIVE (NEGATIVE); UROBILINOGEN,URINE 0.2 (0.2-1.0)
[2019-01-14 02:04] LABS: BACTERIA,URINE FEW /HPF (None Seen); WBC,URINE 0-3 /HPF (0-3)
[2019-01-14] MEDS ORDERED: ALBMDI INH (02:31)
--- NOTE | 2019-01-14 02:32 | NUR ---
Medication reconciliation completed with information provided by patient. Any prior medication reconciliation on file was reviewed and corrected.
--- NOTE | 2019-01-14 02:46 | NUR ---
Belongings list completed.
[2019-01-14] MEDS ORDERED: IOHEXOL 100 ML IV ONE (02:47)
--- NOTE | 2019-01-14 03:38 | NUR ---
Patient will be admitted to care of Dr. Starkey. Admitted to Observation Telemetry unit. Will go to room 135. Belongings list completed. Summary report printed. Report will be given at bedside.
--- NOTE | 2019-01-14 03:38 | NUR ---
Transfer to Telemetry via ACLS protocol. Licensed nurse present. IV present no signs or symptoms of infiltration.
--- NOTE | 2019-01-14 03:44 | NUR ---
ADMISSION NOTE Received patient from ER via gurcameron, received report from RN. Patient admitted with diagnosis of copd exacerbation. Patient oriented to hospital routine, call light, toileting and safety-patient verbalized understanding.
[2019-01-14 03:53] VITALS: BP_SYST 119
--- NOTE | 2019-01-14 04:30 | NUR ---
PHOTOS PT TAKEN TO ROOM AND REPOSITIONED IN BED. SKIN PHOTOS TAKEN. PT ORIENTED TO ROOM AND CALL LIGHT AND ENCOURAGED TO CALL FOR ASSISTANCE. SAFETY PRECAUTIONS IN PLACE. BREATHING IS UNLABORED TO O2 VIA NC AT 2L. PT DENIES PAIN OR DISCOMFORT AT THIS TIME. WILL MONITOR.
--- NOTE | 2019-01-14 05:15 | NUR ---
SNACKS PT GIVEN SUGAR FREE PUDDING AND JELLO PER REQUEST.
[2019-01-14] MEDS ORDERED: ONDANSETRON HCL 4 MG/2 ML VIAL IVP PRN (06:30)
[2019-01-14] MEDS ORDERED: ACETAMINOPHEN 325 MG TABLET PO PRN (06:30)
--- NOTE | 2019-01-14 06:32 | NUR ---
CLOSING NOTE PT RESTING COMFORTABLY IN BED, AAOX4. NO S/S OF ACUTE DISTRESS. BREATHING IS EVEN AND EFFORTLESS TO OXYGEN AT 2L VIA NC. PT DENIES PAIN OR DISCOMFORT. SAFETY PRECAUTIONS MAINTAINED: BED LOCKED IN LOWEST POSITION, SIDE RAILS UP X2, CALL LIGHT WITH PT, BED ALARM ON. ALL NEEDS MET DURING SHIFT. WILL CONTINUE TO MONITOR UNTIL CARE IS ENDORSED TO DAY SHIFT RN.
[2019-01-14 07:18] VITALS: BP_SYST 122
--- NOTE | 2019-01-14 07:25 | NUR ---
RN OPENING NOTE RECEIVED SBAR REPORT FROM ENDORSING NURSE AT BEDSIDE. PT AAO X 4, SPEAKS MONGOLIAN AND IS COOPERATIVE. SEE VS FLOW SHEET.
[2019-01-14] MEDS ORDERED: PREDNISONE 20 MG TABLET PO SCH (08:00)
[2019-01-14 08:08] VITALS: BP_SYST 124
[2019-01-14 08:10] LABS: BASOPHILS % (AUTO) 0.1 % (0.0-2.0); HEMATOCRIT 28.8 % (36-54); HEMOGLOBIN 9.8 g/dL (14.0-18.0); LYMPHOCYTES # (AUTO) 0.4 K/uL (1.0-5.5); LYMPHOCYTES % (AUTO) 4.8 % (20.5-51.5); MEAN CORPUSCULAR HEMOGLOBIN 31 pg (27-31); MEAN CORPUSCULAR HGB CONC 34 % (32-36); MEAN CORPUSCULAR VOLUME 90 fL (79.0-98.0); MONOCYTES # (AUTO) 0.3 K/uL (0.0-1.0); MONOCYTES % (AUTO) 4.3 % (1.7-9.3); NEUTROPHILS % (AUTO) 90.8 % (40.0-70.0); PLATELET COUNT (AUTO) 148 K/uL (130-430); RED BLOOD CELL COUNT(AUTO) 3.19 MIL/uL (4.2-6.2); RED CELL DISTRIBUTION WIDTH 16.2 % (9.0-15.0); WHITE BLOOD COUNT (AUTO) 7.7 K/uL (4.8-10.8)
[2019-01-14 08:27] LABS: ALBUMIN 2.5 g/dL (3.4-4.8); CALCIUM 9.4 mg/dL (8.4-11.0); CREATININE 1.08 mg/dL (0.55-1.30); POTASSIUM 3.8 mmol/L (3.5-5.1); TOTAL BILIRUBIN 0.3 mg/dL (0.0-1.0)
[2019-01-14] MEDS: AZITHROMYCIN 500 MG in NS 250 ML IV SCH (09:00)
[2019-01-14 09:19] VITALS: BP_SYST 124
[2019-01-14] MEDS: cefTRIAXone 1 GM IVPB PREMIX 50 ML IV SCH (09:37)
[2019-01-14] MEDS: FAMOTIDINE 20 MG TABLET PO SCH (09:39)
[2019-01-14] MEDS ORDERED: FUROSEMIDE 20 MG/2 ML VIAL IVP ONE (09:45)
[2019-01-14] MEDS ORDERED: ENOXAPARIN SODIUM 40 MG/0.4 ML SYRINGE SUBCUT ONE (09:45)
[2019-01-14] MEDS ORDERED: methylPREDNISolone SOD SUCC 40 MG/ML VIAL IVP ONE (09:45)
--- NOTE | 2019-01-14 09:57 | NUR ---
Nutrition Update Joes A Scale 17 noted. Pt admitted for COPD exacerbation. Diet: cardiac BMI: 18.8 kg/m2 RD to follow per nutrition care standards.
--- NOTE | 2019-01-14 12:15 | NUR ---
ASSISTED PATIENT TO BATHROOM PT VERY WEAK, BEDREST RECOMMENDED.
[2019-01-14 12:21] VITALS: BP_SYST 132
[2019-01-14] MEDS: ALBUTEROL SULFATE 0.083% 2.5 MG/3 ML VIAL.NEB INH PRN ×2 (14:46→19:06)
--- NOTE | 2019-01-14 15:00 | NUR ---
PT RESTING IN BED AND APPEARS TO BE SLEEPING, NO S/S OF DISTRESS NOTED. bED ALARM ACTIVE, BED IN LOWEST POSITION AND CALL ALARM WITHIN REACH.
--- NOTE | 2019-01-14 15:29 | NUR ---
CONSULT REASON FOR CONSULT: COPD PERSON I SPOKE WITH: ANIBAL CONSULTING PHYSICIAN: DR. WOODRUFF CLINICAL RESOURCE DIRECTOR PHONE NUMBER: [phone] ORDERING PHYSICIAN: DR. CALLAHAN
[2019-01-14 15:33] VITALS: BP_SYST 129
--- NOTE | 2019-01-14 18:37 | NUR ---
RN CLOSING NOTE PT RESTING IN BED WITH NO S/S OF DISTRESS, NO COMPLAINT OF PAIN. SBAR REPORT WILL BE ENDORSED TO RECEIVING RN AT BEDSIDE AT SHIFT CHANGE.
--- NOTE | 2019-01-14 19:40 | NUR ---
ROUNDS PATIENT RESTING COMFORTABLY IN BED, NOT IN DISTRESS, VITALS STABLE. DENIES ANY PAIN AND DISCOMFORT AT THIS TIME. ASSESSMENT DONE AND DOCUMENTED. SEE FLOWSHEET. NEEDS ATTENDED TO. SAFETY AND FALL PRECAUTION MEASURES IN PLACED. BED IN LOW AND LOCKED POSITION. BED ALARM ON. CALL LIGHT PLACED WITHIN REACH.
[2019-01-14] MEDS: methylPREDNISolone SOD SUCC 40 MG/ML VIAL IVP SCH (20:42)
--- NOTE | 2019-01-14 21:14 | NUR ---
MEDICATION DUE MEDICATION GIVEN SCHEDULED, TOLERATED WELL. WILL CONTINUE TO MONITOR.
--- NOTE | 2019-01-15 00:13 | NUR ---
PATIENT RESTING: Patient resting quietly. No acute distress noted. Vital signs within normal range.
[2019-01-15 01:20] VITALS: BP_SYST 112
--- NOTE | 2019-01-15 04:06 | NUR ---
ROUNDS PATIENT ASLEEP, NO SOB NOR PAIN AND DISCOMFORT NOTED, WILL CONTINUE TO MONITOR.
[2019-01-15 05:52] LABS: ALBUMIN 2.3 g/dL (3.4-4.8); CALCIUM 9.1 mg/dL (8.4-11.0); CREATININE 0.66 mg/dL (0.55-1.30); POTASSIUM 3.4 mmol/L (3.5-5.1); TOTAL BILIRUBIN 0.3 mg/dL (0.0-1.0)
[2019-01-15 06:26] LABS: BASOPHILS % (AUTO) 0.1 % (0.0-2.0); HEMATOCRIT 26.9 % (36-54); LYMPHOCYTES # (AUTO) 0.3 K/uL (1.0-5.5); LYMPHOCYTES % (AUTO) 4.5 % (20.5-51.5); MEAN CORPUSCULAR HEMOGLOBIN 30 pg (27-31); MEAN CORPUSCULAR HGB CONC 33 % (32-36); MEAN CORPUSCULAR VOLUME 91 fL (79.0-98.0); MONOCYTES # (AUTO) 0.6 K/uL (0.0-1.0); MONOCYTES % (AUTO) 7.9 % (1.7-9.3); NEUTROPHILS # (AUTO) 6.2 K/uL (1.8-7.7); NEUTROPHILS % (AUTO) 87.5 % (40.0-70.0); PLATELET COUNT (AUTO) 140 K/uL (130-430); RED BLOOD CELL COUNT(AUTO) 2.96 MIL/uL (4.2-6.2); RED CELL DISTRIBUTION WIDTH 15.6 % (9.0-15.0); WHITE BLOOD COUNT (AUTO) 7.1 K/uL (4.8-10.8)
--- NOTE | 2019-01-15 06:45 | NUR ---
CLOSING NOTES PATIENT AWAKE, VITALS STABLE, NO PAIN AND DISCOMFORT AT THIS TIME. ALL NEEDS ATTENDED TO. SAFETY MEASURES MAINTAINED. CALL LIGHT PLACED WITHIN REACH.
--- NOTE | 2019-01-15 07:30 | NUR ---
RN OPENING NOTE RECEIVED SBAR REPORT FROM ENDORSING NURSE AT BEDSIDE. PT AAO X 4, SPEAKS PALAUAN, COOPERATIVE, NO COMPLAINT OF PAIN. SEE VS FLOW SHEET.
[2019-01-15 07:57] VITALS: BP_SYST 114
[2019-01-15] MEDS: cefTRIAXone 1 GM IVPB PREMIX 50 ML IV SCH (08:31)
[2019-01-15] MEDS: FAMOTIDINE 20 MG TABLET PO SCH (09:42)
[2019-01-15] MEDS: AZITHROMYCIN 500 MG in NS 250 ML IV SCH (09:42)
[2019-01-15] MEDS: FUROSEMIDE 20 MG/2 ML VIAL IVP SCH (09:43)
[2019-01-15] MEDS: methylPREDNISolone SOD SUCC 40 MG/ML VIAL IVP SCH ×2 (09:43→21:07)
[2019-01-15] MEDS: ENOXAPARIN SODIUM 40 MG/0.4 ML SYRINGE SUBCUT SCH (09:44)
--- NOTE | 2019-01-15 10:30 | NUR ---
PT EDUCATION PT EDUCATED ON PLAN OF CARE AT BEDSIDE, OPPORTUNITY FOR QUESTIONS PROVIDED.
[2019-01-15 11:22] VITALS: BP_SYST 134
--- NOTE | 2019-01-15 13:00 | NUR ---
ROUNDS PT RESTING IN BED AND APPEARS TO BE SLEEPING WITH NO S/S DISCOMFORT. BED IN LOWEST POSITION, BED ALARM ACTIVE, AND CALL LIGHT IS WITHIN REACH OF PT.
--- NOTE | 2019-01-15 14:03 | NUR ---
DR. WOODRUFF (PULVA) AT BEDSIDE NEW ORDERS RECEIVED.
[2019-01-15] MEDS ORDERED: POTASSIUM CHLORIDE 20 MEQ TAB.PRT.SR PO ONE (14:15)
[2019-01-15] MEDS: ALBUTEROL SULFATE 0.083% 2.5 MG/3 ML VIAL.NEB INH PRN ×2 (14:28→15:57)
[2019-01-15 15:25] VITALS: BP_SYST 132
--- NOTE | 2019-01-15 16:00 | NUR ---
ROUNDS PT RESTING IN BED AND APPEARS TO BE SLEEPING WITH NO S/S OF DISTRESS. BED IN LOWEST POSITION, BED ALARM ENGAGED, AND CALL LIGHT IS WITHIN REACH OF PATIENT.
--- NOTE | 2019-01-15 18:59 | NUR ---
RN CLOSING NOTE. PT SITTING UP IN BED WITH NO COMPLAINT OF DISTRESS. BED IN LOWEST POSITION, BED ALARM ACTIVE, CALL LIGHT WITHIN REACH.
[2019-01-15] MEDS: ALBUTEROL SULFATE 0.083% 2.5 MG/3 ML VIAL.NEB INH SCH (19:37)
[2019-01-15] MEDS: IPRATROPIUM BROM 0.5 MG/2.5 ML VIAL.NEB (ATROVENT) INH SCH (19:37)
--- NOTE | 2019-01-15 20:00 | NUR ---
AWAKE, ALERT, ORIENTED X4. IN NO APPARENT DISTRESS. VSS. DENIES PAIN. ON ROOM AIR. BREATH SOUNDS WITH ADVENTITIOUS SOUNDS. POX98%. OCCASIONAL MOIST SEMI-PRODUCTIVE COUGH. SINUS RHYTHM. HOB UP TO COMFORT. SIDE RAILS UP. CALL LIGHTS WITHIN REACH.
--- NOTE | 2019-01-15 22:00 | NUR ---
ASKED FOR COFFEE AND HALF A SANDWICH. RESTING QUIETLY.
--- NOTE | 2019-01-16 | NUR ---
AWAKE. DENIES PAIN, DISTRESS, SOB. OCCASIONAL MOIST SEMI-PRODUCTIVE COUGH NOTED.
[2019-01-16 00:42] VITALS: BP_SYST 133
--- NOTE | 2019-01-16 01:05 | NUR ---
assume care of the pt. pt is sitting in bed, alert, awake,oriented. no pain. most cough noted. pt is waiting for his breathing treatment. needs attended. call light in reach. anastacia follow-up.
[2019-01-16] MEDS: IPRATROPIUM BROM 0.5 MG/2.5 ML VIAL.NEB (ATROVENT) INH SCH ×4 (01:16→19:04)
[2019-01-16] MEDS: ALBUTEROL SULFATE 0.083% 2.5 MG/3 ML VIAL.NEB INH SCH ×4 (01:16→19:03)
--- NOTE | 2019-01-16 04:20 | NUR ---
notes: pt is awake, alert. watching tv. no pain. not distress. no more swelling on both legs. photo take to both arm. needs attended. pelon light in reach. will monitor.
--- NOTE | 2019-01-16 06:10 | NUR ---
notes: pt is awake, alert. watching tv. no pain. not distress. iv site is intact. needs attended. call light in reach. will monitor.
[2019-01-16 07:00] LABS: CALCIUM 9.5 mg/dL (8.4-11.0); CREATININE 0.65 mg/dL (0.55-1.30)
--- NOTE | 2019-01-16 07:20 | NUR ---
closing: pt is awake, alert, watching tv. stable. needs attended the whole shift. bedside report to am rn.
--- NOTE | 2019-01-16 07:31 | NUR ---
Opening note Patient resting in bed A/O x 4, no complaints of pain, no SOB noted. No nausea, no vomiting. O2 sat 97% on O2 2Lpm via nasal cannula. On fall precautions precautions, educated patient on the call light system, verbalized understanding, bed in lowest position, bed alarm on, call light within reach , 2 side rails up. Will continue to monitor.
[2019-01-16 08:10] VITALS: BP_SYST 142
[2019-01-16] MEDS: FAMOTIDINE 20 MG TABLET PO SCH (08:18)
[2019-01-16] MEDS: AZITHROMYCIN 500 MG in NS 250 ML IV SCH (08:20)
[2019-01-16] MEDS: FUROSEMIDE 20 MG/2 ML VIAL IVP SCH (08:21)
[2019-01-16] MEDS: methylPREDNISolone SOD SUCC 40 MG/ML VIAL IVP SCH ×2 (08:21→20:20)
[2019-01-16] MEDS: ENOXAPARIN SODIUM 40 MG/0.4 ML SYRINGE SUBCUT SCH (08:23)
[2019-01-16] MEDS: ALBUTEROL SULFATE 0.083% 2.5 MG/3 ML VIAL.NEB INH PRN ×2 (09:16→17:05)
[2019-01-16] MEDS ORDERED: FUROSEMIDE 20 MG/2 ML VIAL IVP ONE (09:30)
--- NOTE | 2019-01-16 09:30 | NUR ---
Dr. Devries rounds Patient resting in bed, MD at bedside, recommended breathing treatment stat, and lasix.
[2019-01-16] MEDS: cefTRIAXone 1 GM IVPB PREMIX 50 ML IV SCH (10:19)
--- NOTE | 2019-01-16 11:57 | NUR ---
Rounds patient resting in bed at this time, urine output of 400cc with yellow clear urine noted. O2 sat 96% on o2 2lpm via nasal cannula.
[2019-01-16 12:45] VITALS: BP_SYST 129
--- NOTE | 2019-01-16 13:45 | NUR ---
Rounds patient ambulated from bed to chair using walker. Patient sitting up in chair, no SOB, no complaints of pain. Linens change provided.
[2019-01-16] MEDS ORDERED: guaiFENesin ER 600 MG TAB PO ONE (14:15)
--- NOTE | 2019-01-16 15:30 | NUR ---
Rounds Patient resting in bed at this time, No SOB, no complaints of pain. Slight coughing noted. O2 sat 96% on 2Lpm via nasal cannula. Patient in stable condition.
[2019-01-16 16:16] VITALS: BP_SYST 127
--- NOTE | 2019-01-16 18:21 | NUR ---
Closing note Patient sitting up in bed, finished 100% of dinner. No complaints of pain, no SOB noted. No nausea, no vomiting. O2 sat 96% on O2 2Lpm via nasal cannula. On fall precautions and aspiration precautions, HOB kept elevated, educated patient on the call light system, verbalized understanding, bed in lowest position, bed alarm on, call light within reach , 2 side rails up. All needs met at this time.
--- NOTE | 2019-01-16 19:20 | NUR ---
Opening Note Report received at bedside. Patient in bed resting with family at bedside. On 2L NC and tolerating well. Wheezing heard on bilateral upper chest. IV on the right ac 20g s/l. Skin tears noted to BUE. No pain stated by the patient. bed low and locked. Bed alarm is active. Oriented the patient to the room and use of the call light. Call light placed within reach of the right hand. Will monitor on rounds for any change in condition.
[2019-01-16 20:00] VITALS: BP_SYST 136
[2019-01-16] MEDS: guaiFENesin ER 600 MG TAB PO SCH (20:19)
--- NOTE | 2019-01-16 22:45 | NUR ---
Patient in resting with HOB elevated. Urine output 100ml. No pain or respiratory distress. No needs at this time.
[2019-01-17 00:31] VITALS: BP_SYST 128
[2019-01-17] MEDS: ALBUTEROL SULFATE 0.083% 2.5 MG/3 ML VIAL.NEB INH SCH ×2 (01:13→07:27)
[2019-01-17] MEDS: IPRATROPIUM BROM 0.5 MG/2.5 ML VIAL.NEB (ATROVENT) INH SCH ×2 (01:14→07:28)
--- NOTE | 2019-01-17 03:25 | NUR ---
Patient in bed resting with no pain or respiratory distress. Coffes (Decaf) given.
[2019-01-17 06:21] LABS: CALCIUM 9.8 mg/dL (8.4-11.0); CREATININE 0.77 mg/dL (0.55-1.30); POTASSIUM 3.8 mmol/L (3.5-5.1)
--- NOTE | 2019-01-17 06:49 | NUR ---
CLosing Notes Patient in bed resting on 2L NC. No complaints of pain or respiratory distress. Bed low and locked. IV site intact, clean and dry. All needs have been met and safety precautions in place.
--- NOTE | 2019-01-17 07:20 | NUR ---
Opening note Patient resting in bed A/O x 4, no complaints of pain, no SOB noted. No nausea, no vomiting. O2 sat 99% on room air at this time.IV patent and intact, On fall precautions precautions, educated patient on the call light system, verbalized understanding, bed in lowest position, bed alarm on, call light within reach , 2 side rails up. Will continue to monitor.
[2019-01-17 07:56] VITALS: BP_SYST 142
[2019-01-17 08:30] VITALS: BP_SYST 140
[2019-01-17] MEDS: AZITHROMYCIN 500 MG in NS 250 ML IV SCH (08:30)
[2019-01-17] MEDS: guaiFENesin ER 600 MG TAB PO SCH (08:34)
[2019-01-17] MEDS: FAMOTIDINE 20 MG TABLET PO SCH (08:35)
[2019-01-17] MEDS: methylPREDNISolone SOD SUCC 40 MG/ML VIAL IVP SCH (08:36)
[2019-01-17] MEDS: FUROSEMIDE 20 MG/2 ML VIAL IVP SCH (08:37)
[2019-01-17] MEDS: ENOXAPARIN SODIUM 40 MG/0.4 ML SYRINGE SUBCUT SCH (08:39)
--- NOTE | 2019-01-17 09:30 | NUR ---
Medications/Rounds Patient sitting up in bed, tolerated medications well. No nausea, no vomiting, no complaints of pain at this time. Patient having good urine output, yellow, clear. NO SOB noted. Patient resting comfortably.
[2019-01-17] MEDS: cefTRIAXone 1 GM IVPB PREMIX 50 ML IV SCH (09:49)
[2019-01-17 11:21] VITALS: BP_SYST 139
--- NOTE | 2019-01-17 11:40 | NUR ---
Rounds Patient sitting up in bed, informed of discharge, patient Okay to discharge home, once cleared by Dr. Dumont
--- NOTE | 2019-01-17 12:01 | NUR ---
PHYSICAL THERAPY CO-SIGN The Physical Therapy Progress Notes documented by Criminal Court Judge have been reviewed. Reviewed/Co-Signed by: Margareth West PT Documentation Done by:NEHEMIAS MOHAN SHORTHAND TEACHER Addendum: 01/17/19 at 1202 by Margareth West PT Amended: Links added.
--- NOTE | 2019-01-17 12:12 | NUR ---
PULMONARY CALLED PAGED YOLIE HILTON AT [phone]LEUNG IGNACIO JONATHAN SPANISH MEDICAL INTERPRETER.
--- NOTE | 2019-01-17 12:25 | NUR ---
Dr. Yogesh Zuñiga called back, patient ok to go home. Notified patient, daughter at bedside.
[2019-01-17] MEDS ORDERED: FURO-150 PO (12:34)
[2019-01-17 12:42] VITALS: BP_SYST 139
[2019-01-17] MEDS ORDERED: AMLO5TAB4 PO (12:45)
[2019-01-17] MEDS ORDERED: Z-PACK (12:47)
[2019-01-17] MEDS ORDERED: MEDROL DOSE PACK (12:48)
[2019-01-17] MEDS ORDERED: BUDE6HFA INH (12:51)
--- NOTE | 2019-01-17 13:08 | NUR ---
Follow Up: Referred to [facility] for x 1 post discharge visit prior to PCP follow up. Patient will be called for appointment. Referred to HCP CHF/COPD/Smoking Cessation Health Enhancement Classes. Patient needs to call to register. . Referred to HCP COPD [facility] Program. Patient will be called for enrollment. Referred to HCP CHF Program. Patient will be called for enrollment. Referred to HCP Webbing Inspector for home assessment. Patient will be called for assessment or visit. Follow up with Senior Advocate. Patient will be called for appointment. Follow up with Washing Machine Mechanic. Patient will be called for appointment. Dayan Puckett, HCP Ribbon Lapper Tender [phone]
--- NOTE | 2019-01-17 13:14 | NUR ---
D/C Patient Patient given medication reconciliation form and D/C instructions. Exit Care provided. Patient verbalized understandinG, discussed with patient the results and treatment provided. Ambulatory with steady gait for discharge to home. Patient in stable condition, ID band removed. IV catheter removed, intact and dressing applied, no active bleeding. Rx of medications given. Patient educated on pain management. All belongings sent with patient.
== END 2019-01-17 13:14 | disposition home or self-care (01) | DRG 291 ==
LOC: SED 21:25 → STU 22:58 → OBSVTOIN 01-14 09:47
PROVIDERS: ADMIT Internal Medicine; ATTEND Internal Medicine
DX: I11.0 Hypertensive heart disease with heart failure (principal); I50.31 Acute diastolic (congestive) heart failure; E43 Unspecified severe protein-calorie malnutrition; J44.1 Chronic obstructive pulmonary disease with (acute) exacerbation; F17.210 Nicotine dependence, cigarettes, uncomplicated; G62.9 Polyneuropathy, unspecified; F32.9 Major depressive disorder, single episode, unspecified; M75.101 Unspecified rotator cuff tear or rupture of right shoulder, not specified as traumatic; Z91.14 Patient's other noncompliance with medication regimen; Z91.19 Patient's noncompliance with other medical treatment and regimen; Z99.81 Dependence on supplemental oxygen
CPT/HCPCS: 36415; 36600; 71045; 71275; 80048; 80053; 81000-TC; 82803-TC; 83880; 84484; 85007; 85025; 85027; 85379; 85610-TC; 87081; 93005; 93970; 94640; 94760; 96374; 96375; 97110-GP; 97116-GP; 97530-GP; 99285; G0378; J0456; J0696; J1030; J1650; J1940; J2930; J7040; J7050; J7060; J7512; J7613; J7620; Q9967

== ENCOUNTER 2019-01-21 02:00 | Emergency (ER) | payer OTHER ==
[~2019-01-21] VITALS: Ht 170.2 cm; Wt 59.0 kg
[~2019-01-21 02:00] MED LIST changes: +ALBMDI INH; +AMLO5TAB4 PO; +BUDE6HFA INH; +FURO-150 PO; +Z-PACK
--- NOTE | 2019-01-21 02:00 | NUR ---
0200 - Patient to ER bed 3 to gown for evaluation. Side rails up. Report given to ROCK Valdivia.
[2019-01-21 02:02] VITALS: BP_SYST 151
--- NOTE | 2019-01-21 02:02 | NUR ---
0202 - ER at bedside examining patient.
--- NOTE | 2019-01-21 02:05 | NUR ---
Patient brought to ED via BLS w/ c/o left shoulder pain s/p fall. Fall occurred while reaching out for walker. No obvious trauma noted. CMS intact to affected extremity however ROM is limited.
[2019-01-21] MEDS ORDERED: methylPREDNISolone SOD SUCC/PF 62.5 MG/ML VIAL IVP ONE (02:15)
[2019-01-21] MEDS ORDERED: IPRATROPIUM/ALBUTEROL SULFATE 3 ML AMPUL.NEB (DUONEB) INH ONE (02:15)
[2019-01-21] MEDS ORDERED: NACL 0.9% 1,000 ML IV ONE (02:15)
[2019-01-21] MEDS ORDERED: MORPHINE 4 MG/ML INJ. SYRINGE IVP ONE (02:15)
[2019-01-21 02:48] LABS: HEMATOCRIT 33.3 % (36-54); HEMOGLOBIN 11.2 g/dL (14.0-18.0); MEAN CORPUSCULAR HEMOGLOBIN 31 pg (27-31); MEAN CORPUSCULAR HGB CONC 34 % (32-36); MEAN CORPUSCULAR VOLUME 92 fL (79.0-98.0); PLATELET COUNT (AUTO) 218 K/uL (130-430); RED BLOOD CELL COUNT(AUTO) 3.64 MIL/uL (4.2-6.2); RED CELL DISTRIBUTION WIDTH 17.3 % (9.0-15.0); WHITE BLOOD COUNT (AUTO) 7.2 K/uL (4.8-10.8)
[2019-01-21 03:03] LABS: CALCIUM 9.8 mg/dL (8.4-11.0); CREATININE 0.91 mg/dL (0.55-1.30); POTASSIUM 3.4 mmol/L (3.5-5.1)
[2019-01-21 03:11] LABS: ALBUMIN 2.9 g/dL (3.4-4.8); TOTAL BILIRUBIN 0.4 mg/dL (0.0-1.0)
[2019-01-21 03:21] LABS: BAND % (MANUAL) 1 % (0-6); LYMPHOCYTES % (MANUAL) 13 % (20-46)
[2019-01-21 03:22] LABS: ATYPICAL LYMPHOCYTES % 0 % (0-0); BASOPHILS % (MANUAL) 0 % (0-2); EOSINOPHILS % (MANUAL) 1 % (0-7); METAMYELOCYTES % 3 % (0-0); MONOCYTES % (MANUAL) 7 % (0-11); MYELOCYTES % 1 % (0-0)
[2019-01-21] MEDS ORDERED: fentaNYL CITRATE/PF 100 MCG/2 ML AMP IVP ONE (04:30)
[2019-01-21] MEDS ORDERED: MIDAZOLAM HCL 5 MG/5 ML VIAL IVP ONE (04:30)
--- NOTE | 2019-01-21 04:52 | NUR ---
Lynn cummins in ED - 01/21/19 at 0549 by [email or web address] Patient remains acutely intoxicated. Incontinent and soiled with urine. Patient more arousable to repeated verbal stimuli however remains obtunded without stimuli.
--- NOTE | 2019-01-21 04:55 | NUR ---
ED MD Bergeron bedside evaluating patient.
--- NOTE | 2019-01-21 05:10 | NUR ---
Patient arm placed to sling. Tolerated application well. Positioned for immobility. CMS intact post placement.
[2019-01-21 05:35] VITALS: BP_SYST 143
--- NOTE | 2019-01-21 05:35 | NUR ---
Patient given written and verbal discharge instructions and verbalizes understanding. ER MD discussed with patient the results and treatment provided. Patient in stable condition. ID arm band removed. IV catheter removed intact and dressing applied, no active bleeding. Rx of [place] and motrin given. Patient educated on pain management and to follow up with PMD. Pain Scale 3/10 tolerable for patient. Opportunity for questions provided and answered. Medication side effect fact sheet provided.
== END 2019-01-21 05:35 | disposition home or self-care (01) ==
LOC: SED 02:00
DX: E87.6 Hypokalemia (principal); J44.9 Chronic obstructive pulmonary disease, unspecified; D64.9 Anemia, unspecified; M25.512 Pain in left shoulder; K21.9 Gastro-esophageal reflux disease without esophagitis; E78.00 Pure hypercholesterolemia, unspecified; F17.210 Nicotine dependence, cigarettes, uncomplicated; Z79.899 Other long term (current) drug therapy; W19.XXXA Unspecified fall, initial encounter; Y93.89 Activity, other specified; Y92.89 Other specified places as the place of occurrence of the external cause; Y99.8 Other external cause status
CPT/HCPCS: 36415; 71045; 73030; 73060; 80053; 84484; 85007; 85027; 93005; 94640; 96361; 96374; 96375; 99284; J2250; J2270; J2930; J3010; J7030; J7620

== ENCOUNTER 2019-02-11 09:05 | Emergency (ER) | payer OTHER ==
[~2019-02-11] VITALS: Ht 182.9 cm; Wt 61.2 kg
[2019-02-11 09:09] VITALS: BP_SYST 124
[2019-02-11] MEDS ORDERED: KETOROLAC TROMETHAMINE 30 MG VIAL IVP ONE (09:30)
[2019-02-11 09:50] LABS: BASOPHILS % (AUTO) 0.6 % (0.0-2.0); EOSINOPHILS % (AUTO) 0.2 % (0.0-4.0); HEMATOCRIT 33.9 % (36-54); HEMOGLOBIN 11.5 g/dL (14.0-18.0); LYMPHOCYTES # (AUTO) 1.4 K/uL (1.0-5.5); LYMPHOCYTES % (AUTO) 15.4 % (20.5-51.5); MEAN CORPUSCULAR HEMOGLOBIN 32 pg (27-31); MEAN CORPUSCULAR HGB CONC 34 % (32-36); MEAN CORPUSCULAR VOLUME 95 fL (79.0-98.0); MONOCYTES # (AUTO) 0.5 K/uL (0.0-1.0); MONOCYTES % (AUTO) 5.9 % (1.7-9.3); NEUTROPHILS % (AUTO) 77.9 % (40.0-70.0); PLATELET COUNT (AUTO) 229 K/uL (130-430); RED BLOOD CELL COUNT(AUTO) 3.58 MIL/uL (4.2-6.2); RED CELL DISTRIBUTION WIDTH 17.7 % (9.0-15.0)
[2019-02-11] MEDS ORDERED: fentaNYL CITRATE/PF 100 MCG/2 ML AMP IVP ONE (10:00)
[2019-02-11 10:15] LABS: CALCIUM 9.5 mg/dL (8.4-11.0); CREATININE 0.73 mg/dL (0.55-1.30); POTASSIUM 3.2 mmol/L (3.5-5.1)
[2019-02-11 10:20] LABS: ALBUMIN 2.5 g/dL (3.4-4.8); TOTAL BILIRUBIN 0.5 mg/dL (0.0-1.0)
[2019-02-11] MEDS ORDERED: IPRATROPIUM/ALBUTEROL SULFATE 3 ML AMPUL.NEB (DUONEB) INH ONE (11:15)
[2019-02-11 12:19] VITALS: BP_SYST 110
== END 2019-02-11 11:49 | disposition home or self-care (01) ==
LOC: SED 09:05
DX: M54.6 Pain in thoracic spine (principal); J44.9 Chronic obstructive pulmonary disease, unspecified; K21.9 Gastro-esophageal reflux disease without esophagitis; E78.00 Pure hypercholesterolemia, unspecified; Z79.899 Other long term (current) drug therapy
CPT/HCPCS: 36415; 71045; 80053; 82550; 84484; 85025; 93005; 94640; 96374; 96375; 99284; J1885; J3010; J7620; 99283

== ENCOUNTER 2019-03-18 22:02 | Inpatient (IN) | payer OTHER ==
[~2019-03-18] VITALS: Ht 170.2 cm; Wt 56.7 kg
[~2019-03-18 22:02] MED LIST changes: +GUAI600T45 PO; +POTA-10 PO; -PRED20TA PO; -Z-PACK
[2019-03-18 22:06] VITALS: BP_SYST 147
--- NOTE | 2019-03-18 22:09 | NUR ---
Patient to ER bed 02 to gown for evaluation. Side rails up. Report given to ROCK JORDAN
[2019-03-19] MEDS ORDERED: IPRATROPIUM/ALBUTEROL SULFATE 3 ML AMPUL.NEB (DUONEB) INH ONE (00:45)
[2019-03-19] MEDS ORDERED: KETOROLAC TROMETHAMINE 30 MG VIAL IM ONE (00:45)
[2019-03-19] MEDS ORDERED: KETOROLAC TROMETHAMINE 30 MG VIAL IVP ONE (01:15)
[2019-03-19] MEDS ORDERED: PRED20TA PO (01:28)
[2019-03-19] MEDS ORDERED: FLUT1BLS5 IH (01:28)
--- NOTE | 2019-03-19 01:36 | NUR ---
Medication reconciliation completed with information provided by pt. Any prior medication reconciliation on file was reviewed and corrected.
--- NOTE | 2019-03-19 01:40 | NUR ---
PT came to the ED for lower back pain. Reports he has H/O herniated disks and pain is currently 7/10. Reports that he was home and watching TV when symptoms got worse. Denies trauma. Denies n/v/d or fever. No other complaints/injuries noted. Will cont. to monitor.
[2019-03-19] MEDS ORDERED: methylPREDNISolone SOD SUCC/PF 62.5 MG/ML VIAL IVP ONE (01:45)
[2019-03-19 01:51] LABS: HEMATOCRIT 30.6 % (36-54); HEMOGLOBIN 10.5 g/dL (14.0-18.0); MEAN CORPUSCULAR HEMOGLOBIN 33 pg (27-31); MEAN CORPUSCULAR HGB CONC 34 % (32-36); MEAN CORPUSCULAR VOLUME 96 fL (79.0-98.0); PLATELET COUNT (AUTO) 145 K/uL (130-430); RED BLOOD CELL COUNT(AUTO) 3.18 MIL/uL (4.2-6.2); RED CELL DISTRIBUTION WIDTH 14.7 % (9.0-15.0); WHITE BLOOD COUNT (AUTO) 10.8 K/uL (4.8-10.8)
[2019-03-19 02:07] LABS: POTASSIUM 3.1 mmol/L (3.5-5.1)
[2019-03-19 02:08] LABS: ALBUMIN 2.7 g/dL (3.4-4.8); CALCIUM 9.3 mg/dL (8.4-11.0); CREATININE 0.7 mg/dL (0.55-1.30); TOTAL BILIRUBIN 0.3 mg/dL (0.0-1.0)
[2019-03-19 02:42] LABS: ATYPICAL LYMPHOCYTES % 0 % (0-0); BAND % (MANUAL) 1 % (0-6); BASOPHILS % (MANUAL) 0 % (0-2); EOSINOPHILS % (MANUAL) 0 % (0-7); LYMPHOCYTES % (MANUAL) 11 % (20-46); METAMYELOCYTES % 0 % (0-0); MONOCYTES % (MANUAL) 5 % (0-11); MYELOCYTES % 1 % (0-0)
--- NOTE | 2019-03-19 03:08 | NUR ---
Ct with contrast form signed by pt and reviewed necessary education.
--- NOTE | 2019-03-19 03:12 | NUR ---
PT went to CT with contrast via gurney. Tolerated well. Will cont. to monitor.
[2019-03-19] MEDS ORDERED: IOHEXOL 100 ML IV ONE (03:19)
[2019-03-19] MEDS ORDERED: NACL 0.9% 1,000 ML IV ONE (04:15)
[2019-03-19] MEDS ORDERED: PIPERACILLIN/TAZO 3.375 GM in NS 50 ML IV ONE (04:15)
[2019-03-19] MEDS ORDERED: VANCOMYCIN HCL 1,000 MG in NS 250 ML IV ONE (04:15)
[2019-03-19] MEDS ORDERED: VANCOMYCIN HCL 1000 MG/VIAL IV ONE (04:31)
[2019-03-19] MEDS ORDERED: PIPERACILLIN/TAZOBACTAM 3.375 GM/VIAL (ZOSYN) IV ONE (04:31)
--- NOTE | 2019-03-19 05:27 | NUR ---
Patient will be admitted to care of Dr. Devries. Admitted to Tele unit. Will go to room 135. Belongings list completed. Summary report printed. Report will be given at bedside.
--- NOTE | 2019-03-19 05:39 | NUR ---
Spoke to ER MD Dr. Escobar about pts potassium of 3.1, he states that "it is stable and not needed at the moment."
--- NOTE | 2019-03-19 05:53 | NUR ---
Transfer to Tele via ACLS protocol. Licensed nurse present. IV present no signs or symptoms of infiltration.
--- NOTE | 2019-03-19 05:53 | NUR ---
ADMISSION: The patient, ALLA WAGNER, 63 y/o, M admitted by PAN CALLAHAN MD, WITH THE DIAGNOSIS OF R/O TB , TO ROOM 115 A , was given written information regarding hospital policies, unit procedures and contact persons.
[2019-03-19 06:00] VITALS: BP_SYST 137
--- NOTE | 2019-03-19 06:30 | NUR ---
WOUND PICTURE PATIENT WOUNDS PICTURES TAKEN. UNABLE TO PRINT PHOTOS PRINTER NOT WORKING. ENDORSED TO AM ROCK.
--- NOTE | 2019-03-19 06:53 | NUR ---
CONSULT CONSULT CALLED FOR DR. BUTLER I SPOKE WITH DONELL ALANIZ REASON FOR CONSULT: R/O TB REQUESTING CONSULT: DR. CALLAHAN CHAIN MORTISER OPERATOR PHONE NUMBER: [phone]
--- NOTE | 2019-03-19 07:30 | NUR ---
Opening note Patient resting in bed at this time, A/Ox4, no complaints of pain. Iv patent, and intact. No bleeding noted. No infiltration noted. On airborne isolation precautions to rule out TB, educated patient on the reason, patient verbalized understanding. On safety and aspiration precautions, HOB kept elevated, bed in lowest position, bed alarm on, 2 side rails up. Educated patient on the call light system, patient verbalized understanding. patient in stable condition. Will continue to monitor.
[2019-03-19 08:20] VITALS: BP_SYST 125
--- NOTE | 2019-03-19 09:30 | NUR ---
Rounds Patient requested coffee, provided. Offered patient assistance top restroom, patient declined. No other needs at this time.
[2019-03-19] MEDS ORDERED: FUROSEMIDE 20 MG TABLET PO ONE (10:15)
[2019-03-19] MEDS ORDERED: IPRATROPIUM BROM 0.5 MG/2.5 ML VIAL.NEB (ATROVENT) INH ONE (10:15)
[2019-03-19] MEDS ORDERED: PREDNISONE 20 MG TABLET PO ONE (10:15)
[2019-03-19] MEDS ORDERED: ALBUTEROL SULFATE 0.083% 2.5 MG/3 ML VIAL.NEB INH PRN (10:15)
[2019-03-19] MEDS ORDERED: POTASSIUM CHLORIDE 10 MEQ TAB.PRT.SR PO ONE (10:15)
[2019-03-19] MEDS ORDERED: IPRATROPIUM BROM 0.5 MG/2.5 ML VIAL.NEB (ATROVENT) INH PRN (10:15)
[2019-03-19] MEDS ORDERED: NON-FORMULARY MEDICATION (Fluticasone/Umeclidin/Vilanter (Trelegy Ellipta 100-62.5-25) 1 E IH SCH (10:15)
[2019-03-19] MEDS ORDERED: ALBUTEROL SULFATE 0.083% 2.5 MG/3 ML VIAL.NEB INH ONE (10:15)
--- NOTE | 2019-03-19 10:30 | NUR ---
Medications, and DC tele DC patients tele monitor. All medications given as ordered. No adverse side effects noted. patient in stable condition at this time.
--- NOTE | 2019-03-19 10:48 | NUR ---
Pulmo consult called: Called and spoke to Ashley regarding new consult for Dr. Anay Dumont, but Dr. Zuñiga is communications technician today due to Cystic Lesion.
--- NOTE | 2019-03-19 10:54 | NUR ---
Neuro consult called: Called #[phone] and spoke to Veronika regarding a new consult for Soham Yang due to Lumbar Radiculopathy.
[2019-03-19 11:20] VITALS: BP_SYST 125
--- NOTE | 2019-03-19 12:30 | NUR ---
Lunch Patient sitting up in bed, eating lunch at this time. Tolerating well. No nausea, no vomiting noted.
[2019-03-19 14:11] VITALS: BP_SYST 133
--- NOTE | 2019-03-19 14:30 | NUR ---
Rounds Offered patient bedpan, patient declined. patient asking for coffee, provided. No SOB. Patient in stable condition.
[2019-03-19] MEDS: ALBUTEROL SULFATE 0.083% 2.5 MG/3 ML VIAL.NEB INH SCH ×2 (15:35→19:47)
[2019-03-19] MEDS: IPRATROPIUM BROM 0.5 MG/2.5 ML VIAL.NEB (ATROVENT) INH SCH ×2 (15:36→19:47)
[2019-03-19 16:12] VITALS: BP_SYST 125
--- NOTE | 2019-03-19 16:30 | NUR ---
Rounds Patient resting in bed, no complaints of pain. Offered patient bed ambriz, and urinal. patient declining need for use. No SOB noted.
[2019-03-19] MEDS: TRELEGY ELLIPTA INH SCH (17:58)
--- NOTE | 2019-03-19 18:45 | NUR ---
Closing note Patient resting in bed at this time, A/Ox4, no complaints of pain. On airborne isolation precautions to rule out TB, educated patient on the reason, patient verbalized understanding. On safety and aspiration precautions, HOB kept elevated, bed in lowest position, bed alarm on, 2 side rails up. Educated patient on the call light system, patient verbalized understanding. patient in stable condition. All needs met.
--- NOTE | 2019-03-19 19:18 | NUR ---
OPENING NOTES PATIENT RECEIVED IN BED AAO X4. BREATHING UNLABORED ON 02 2L NC. NO C/O PAIN AT THIS TIME. BED IN LOWEST LOCKED POSITION. CALL LIGHT WITH IN REACH. BED ALARM ON.
[2019-03-19 19:50] VITALS: BP_SYST 118
--- NOTE | 2019-03-19 22:15 | NUR ---
ROUNDS PATIENT RESTING IN BED. NO DISTRESS NOTED. CALL LIGHT WITH IN REACH. BED ALARM ON.
[2019-03-20 00:07] VITALS: BP_SYST 128
--- NOTE | 2019-03-20 00:35 | NUR ---
ROUNDS PATIENT RESTING IN BED. BREATHING UNLABORED ON 02 2L NC. CALL LIGHT WITH IN REACH.
--- NOTE | 2019-03-20 03:14 | NUR ---
ROUNDS PATIENT AWAKE. DENIES PAIN AT THIS TIME. PROVIDED WITH COFFEE PER PATIENT REQUEST.
--- NOTE | 2019-03-20 05:43 | NUR ---
INCONTINENCE/WOUND CARE INCONTINENCE CARE DONE. PATIENT HAD LARGE BM. LINENS CHANGED. WOUND CARE DONE TO SACRAL/RT HIP/RTSHOULDER/RT WRIST/RT GROIN WOUNDS.
--- NOTE | 2019-03-20 06:48 | NUR ---
CLOSING NOTES PATIENT RESTING IN BED AWAKE. NO C/O PAIN THROUGH OUT THE NIGHT. PATIENT NEEDS ATTENDED. CALL LIGHT WITH IN REACH.
[2019-03-20] MEDS: ALBUTEROL SULFATE 0.083% 2.5 MG/3 ML VIAL.NEB INH SCH ×6 (07:09→23:10)
[2019-03-20] MEDS: IPRATROPIUM BROM 0.5 MG/2.5 ML VIAL.NEB (ATROVENT) INH SCH ×6 (07:09→23:10)
--- NOTE | 2019-03-20 07:50 | NUR ---
Note Dr Zuñiga at pt's bedside and assessment completed at this time. Dr Zuñiga dc'd Airborne Isolation precautions at this time. Pt notified.
[2019-03-20 08:00] VITALS: BP_SYST 116
[2019-03-20] MEDS ORDERED: PREDNISONE 20 MG TABLET PO SCH (08:00)
--- NOTE | 2019-03-20 08:00 | NUR ---
Note Pt sitting up in bed eating his breakfast. Pt has O2 on at 2L/nc. No SOB/resp distress or pain/discomfort noted at this time. IV in left AC intact and patent. No needs noted at this time. Call light within reach.
[2019-03-20] MEDS: FUROSEMIDE 20 MG TABLET PO SCH (08:11)
[2019-03-20] MEDS: TRELEGY ELLIPTA INH SCH (08:11)
[2019-03-20] MEDS: POTASSIUM CHLORIDE 10 MEQ TAB.PRT.SR PO SCH (08:12)
[2019-03-20] MEDS: PREDNISONE 10 MG TABLET PO SCH (08:12)
--- NOTE | 2019-03-20 10:00 | NUR ---
Note Dr Armendariz was called and notified per Radiology that pt had MRI of lumbar/spine on 03/09/19. Present order written on 03/19 was dc'd. Copy of lumbar/spine MRI report done 03/09/19 put in pt's chart at this time. Order for PT eval put in and pt waiting for physical therapy to get him OOB at this time. No needs noted at this time. Call light within reach.
--- NOTE | 2019-03-20 10:21 | NUR ---
Nutrition Update Jose A Scale 17 noted. Pt admitted for r/o TB. Diet: regular BMI: 19.6 kg/m2 RD to follow per nutrition care standards.
--- NOTE | 2019-03-20 10:45 | NUR ---
Note Pt moved from room 115A to room 105B. Pt next to nurses' station for close observation for needs and care. Call light within reach.
--- NOTE | 2019-03-20 12:30 | NUR ---
Note Pt sitting up in bed resting - denies any needs at this time. Call light within reach.
[2019-03-20 12:33] VITALS: BP_SYST 103
--- NOTE | 2019-03-20 13:38 | NUR ---
Dietitian Recommendations 2gm NA diet ONS Ensure Enlive BID (700kcal per day, 40gmPro per day) LT, RD Please refer to Nutrition Assessment for details. Addendum: 03/20/19 at [address] Amended: Links added.
--- NOTE | 2019-03-20 15:23 | NUR ---
WOUND EVALUATION: Late note for 152 secondary to patient care. Wound Consult received from Dr. Devries. Thank you, Dr. Devries, for the consult. Patient received in a Tray Bed with an IsoFlex CHRISTIAN mattress, awake, alert, and oriented. Patient is able to turn in bed independently, but prefers sleeping on his right side (only way he can get 'comfortable enough to sleep'). Jose A Score is a 16. Past Medical History: COPD, hypertension, hyperlipidemia. Recent Labs: WBC 10.8, RBC 3.18, hemoglobin 10.5, hematocrit 30.6, potassium 3.1, albumin 2.7, D-dimer 1080. Microbiology: Blood culture results 2 in progress. MRSA screen results in progress. Intrinsic factors that delay wound healing: COPD, hypoalbuminemia. Extrinsic factors that delay wound healing: Decreased mobility. Microbiology: Blood cultures x2 in progress. Wound Assessment: 1. Right dorsal wrist (at Ulnar Styloid Process): Pressure Ulcer, present on admission. Wound bed is 100% yellow tissue. No odor, scant serous drainage. Ameena-wound intact. Measures 1.0 cm x 1.1 cm, superficial depth. 2. Right dorsal wrist superior to wound 1: Multiple scabs, present on admission. Site has multiple lack scabs. No odor, scant serous drainage. Ameena-wound intact. Recommend: Cleanse wounds with normal saline. Apply moisture barrier cream to ameena-wounds. Apply Venelex ointment to wound beds. Cover with foam dressing. Perform wound care daily, and as needed for dressing soiling or dislodgement. 3. Right posterior shoulder: Pressure ulcer, present on admission. Wound bed has 90% yellow tissue in the center, 10% pink tissue on perimeter. No odor, scant serous drainage. Periwound intact. Wound measures 1.9 cm x 1.9 cm. Recommend: Cleanse wound with normal saline. Apply moisture barrier cream to ameena-wound. Apply Venelex ointment to wound bed. Cover with foam dressing. Perform wound care daily, and as needed for dressing soiling or dislodgement. 4. Bilateral inguinal areas: Erythema from intertriginous dermatitis, present on admission. No odor, no drainage. 5. Scrotal area: Erythema from IAD, present on admission. No odor, no drainage. Recommend: Cleanse involved areas with mild soap and water. Pat dry. Apply antifungal powder to involved areas. Perform site care twice a day, and as needed for soiling. 6. Right lateral hip near greater trochanter: Pressure ulcer, present on admission. Wound bed has 100% yellow tissue. No odor, scant serous drainage. Periwound intact. Wound measures 1.0 cm x 1.5 cm. Recommend: Cleanse wound with normal saline. Apply moisture barrier cream to ameena-wound. Apply Venelex ointment to wound bed. Cover with foam dressing. Perform wound care daily, and as needed for dressing soiling or dislodgement. 7. Sacral-Coccygeal area: Scar tissue and blanchable erythema from IAD, present on admission. No odor, no drainage. Ameena-wound intact. Recommend: Cleanse involved areas with mild soap and water. Pat dry. Apply moisture barrier cream to area. Cover with foam dressing. Perform wound care daily, and as needed for dressing soiling or dislodgement. 8. Bilateral upper extremities: Multiple scabs and scattered areas of ecchymosis, present on admission. Dry stable. 9. Bilateral lateral chest: Ecchymosis, present on admission. Dry stable. Recommend: No dressings needed. Monitor sites qshift. Contact WCN if sites open or drain. Also recommend: Reposition patient side to side only every 2 hours with pillow support, and off-load pressure areas with pillows for pressure re-distribution. Offload, elevate and float bilateral heels with pillows. Perform skin care and monitor skin integrity Q shift. Use moisture barrier cream on buttocks and other moisture susceptible areas QID and as needed for soiling. Maintain patient on a low air-loss mattress.
[2019-03-20 16:23] VITALS: BP_SYST 110
--- NOTE | 2019-03-20 17:14 | NUR ---
Nutrition Consult RD received Nutrition Consult for Multiple wounds/PUs on 03/20/19 3585. Pt was seen and assessed by RD earlier today. Please refer to Nutrition Assessment for details.
--- NOTE | 2019-03-20 17:43 | NUR ---
Note Pt sitting up in bed with O2 at 2L/nc. No needs noted at this time. No SOB/resp distress or pain/discomfort noted at this time. Call light within reach.
--- NOTE | 2019-03-20 19:00 | NUR ---
Note Pt was checked on q1' and PRN all shift for needs and care. Pt denies any resp distress/SOB or pain/discomfort. Call light within reach.
[2019-03-20 19:50] VITALS: BP_SYST 115
--- NOTE | 2019-03-20 19:50 | NUR ---
INITIAL NOTE AT INITIAL ASSESSMENT, PATIENT IS RESTING IN BED, STABLE, NO SIGNS OF RESPIRATORY DISTRESS. PATIENT VERBALIZES NO PAIN AT THIS TIME. DAUGHTER IS AT BEDSIDE. PLAN OF CARE FOR THE EVENING IS COMMUNICATED WITH THE PATIENT AND HIS DAUGHTER. PATIENT SUCCESSFULLY DEMONSTRATES USAGE OF CALL LIGHT AT THIS TIME. BED IS LOCKED, ALARMED, AND AT THE LOWEST LEVEL. FALL, SAFETY, AND RESPIRATORY PRECAUTIONS WILL BE TAKEN THROUGHOUT THE SHIFT.
--- NOTE | 2019-03-20 21:36 | NUR ---
PAGING DR. CALLAHAN/DR. GRANGER DIRECTOR CHILD DEVELOPMENT CENTER DR. GRANGER DIRECTOR CHILD DEVELOPMENT [facility] FOR DR. CALLAHAN; SPOKE WITH DRE FROM EXCHANGE. WILL WAIT FOR MD TO CALL BACK. PRIMARY NURSE, ROCK BLACKWELL ALSO AWARE.
--- NOTE | 2019-03-20 21:50 | NUR ---
NOTE PATIENT IS RESTING IN BED, STABLE, NO SIGNS OF RESPIRATORY DISTRESS. CALL LIGHT IS WITHIN REACH. BED IS LOCKED, ALARMED, AND AT THE LOWEST LEVEL.
--- NOTE | 2019-03-20 23:50 | NUR ---
NOTE PATIENT IS RESTING IN BED, STABLE, NO SIGNS OF RESPIRATORY DISTRESS. CALL LIGHT IS WITHIN REACH. BED IS LOCKED, ALARMED, AND AT THE LOWEST LEVEL.
[2019-03-21 00:29] VITALS: BP_SYST 121
[2019-03-21] MEDS: ALBUTEROL SULFATE 0.083% 2.5 MG/3 ML VIAL.NEB INH SCH ×2 (03:25→07:08)
[2019-03-21] MEDS: IPRATROPIUM BROM 0.5 MG/2.5 ML VIAL.NEB (ATROVENT) INH SCH ×2 (03:26→07:08)
--- NOTE | 2019-03-21 07:45 | NUR ---
opening note patient is resting in bed, finishing his breathing treatment, A&Ox4, assessment completed, educated coat ironer hand light system and plan of care, patient verbalized understanding, no signs of distress, patient refused to have nasal cannula on at this time, IV dressing in tact, fall/safety precautions in place.
[2019-03-21 08:00] VITALS: BP_SYST 124
[2019-03-21] MEDS: TRELEGY ELLIPTA INH SCH (08:13)
[2019-03-21] MEDS: FUROSEMIDE 20 MG TABLET PO SCH (08:14)
[2019-03-21] MEDS: POTASSIUM CHLORIDE 10 MEQ TAB.PRT.SR PO SCH (08:14)
[2019-03-21] MEDS: PREDNISONE 10 MG TABLET PO SCH (08:14)
[2019-03-21] MEDS ORDERED: guaiFENesin ER 600 MG TAB PO SCH (09:00)
[2019-03-21] MEDS ORDERED: BALSAM PERU/CASTOR OIL 60 GM OINT...G. TP SCH (09:00)
[2019-03-21 09:20] VITALS: BP_SYST 124
[2019-03-21 09:39] LABS: ALBUMIN 2.3 g/dL (3.4-4.8); CALCIUM 9.2 mg/dL (8.4-11.0); CREATININE 0.68 mg/dL (0.55-1.30); POTASSIUM 3.2 mmol/L (3.5-5.1); TOTAL BILIRUBIN 0.3 mg/dL (0.0-1.0)
--- NOTE | 2019-03-21 10:30 | NUR ---
wound care wound care done per wound care order, patient tolerated well.
[2019-03-21 11:34] VITALS: BP_SYST 109
== END 2019-03-21 11:15 | disposition home or self-care (01) | DRG 551 ==
LOC: SED 22:02 → STU 03-19 05:28 → SMU 03-19 10:00
PROVIDERS: ADMIT Internal Medicine Hospice and Palliative Medicine; ATTEND Internal Medicine Hospice and Palliative Medicine
DX: M54.17 Radiculopathy, lumbosacral region (principal); J96.90 Respiratory failure, unspecified, unspecified whether with hypoxia or hypercapnia; E43 Unspecified severe protein-calorie malnutrition; R64 Cachexia; F17.200 Nicotine dependence, unspecified, uncomplicated; E78.00 Pure hypercholesterolemia, unspecified; R91.8 Other nonspecific abnormal finding of lung field; G62.9 Polyneuropathy, unspecified; K44.9 Diaphragmatic hernia without obstruction or gangrene; J43.9 Emphysema, unspecified; F32.9 Major depressive disorder, single episode, unspecified; F17.210 Nicotine dependence, cigarettes, uncomplicated; I10 Essential (primary) hypertension; K21.9 Gastro-esophageal reflux disease without esophagitis; Z87.01 Personal history of pneumonia (recurrent); Z91.19 Patient's noncompliance with other medical treatment and regimen
CPT/HCPCS: 36415; 36600; 71045; 71275; 80053; 82803-TC; 83605; 84484; 85007; 85027; 85379; 87040-TC; 87081; 94640; 94760; 96365; 96366; 96367; 96375; 99285; J1885; J2543; J2930; J3370; J7512; J7613; J7620; Q9967

== ENCOUNTER 2019-03-28 22:20 | Inpatient (IN) | payer OTHER ==
[~2019-03-28] VITALS: Ht 170.2 cm; Wt 49.9 kg
[~2019-03-28 22:20] MED LIST changes: -ALBU2.5V7 INH; -AMLO5TAB4 PO; -BUDE6HFA INH; -GUAI600T45 PO; +PRED20TA PO
[2019-03-28 22:26] VITALS: BP_SYST 110
--- NOTE | 2019-03-28 22:26 | NUR ---
Pt BIB BLS, placed to ER bed 07 and to school lunch monitor. Report given to ROCK Jung.
--- NOTE | 2019-03-28 22:32 | NUR ---
Dr. Wen at bedside.
[2019-03-28] MEDS ORDERED: NITROGLYCERIN 1 INCH (GM) OINT. TD ONE (22:45)
--- NOTE | 2019-03-28 22:45 | NUR ---
B/P 108/64, HR 76. Dr. Wen made aware and NTG paste held. Pt denies c/o C/P or discomfort.
--- NOTE | 2019-03-28 23:09 | NUR ---
patient arrived with daughter AOx4 BLS transport with c/o worsening swelling of bilateral feet. daughter states I called 911 because his feet would not go down. patient has a history of lower leg swelling. patient states he took 2 water pills and soaked his feet to help but nothing has helped. patient is a smoker but denies smoking at this time. no other complaint or injury at this time.
[2019-03-28 23:26] LABS: HEMATOCRIT 30.6 % (36-54); HEMOGLOBIN 10.4 g/dL (14.0-18.0); MEAN CORPUSCULAR HEMOGLOBIN 32 pg (27-31); MEAN CORPUSCULAR HGB CONC 34 % (32-36); MEAN CORPUSCULAR VOLUME 95 fL (79.0-98.0); PLATELET COUNT (AUTO) 218 K/uL (130-430); RED BLOOD CELL COUNT(AUTO) 3.22 MIL/uL (4.2-6.2); RED CELL DISTRIBUTION WIDTH 14.3 % (9.0-15.0); WHITE BLOOD COUNT (AUTO) 7.5 K/uL (4.8-10.8)
[2019-03-28 23:40] LABS: PROTHROMBIN TIME 8.9 SECS (9.5-12.5)
[2019-03-28 23:43] LABS: INR 0.8 (0.80-1.20)
--- NOTE | 2019-03-28 23:50 | NUR ---
Medication reconciliation completed with information provided by PT. Any prior medication reconciliation on file was reviewed and corrected.
[2019-03-28 23:51] LABS: CALCIUM 9.4 mg/dL (8.4-11.0); CREATININE 0.75 mg/dL (0.55-1.30); POTASSIUM 3.9 mmol/L (3.5-5.1)
--- NOTE | 2019-03-28 23:55 | NUR ---
# 18 gauge angiocath placed to LAC. Use of asceptic technique. Opsite placed over site. Blood return noted. Blood for lab drawn from site. Flushed with 10 cc of normal saline. No evidence of infiltration noted. Patient tolerated well.
[2019-03-28 23:57] LABS: ALBUMIN 2.7 g/dL (3.4-4.8); TOTAL BILIRUBIN 0.2 mg/dL (0.0-1.0)
[2019-03-28] MEDS ORDERED: IPRA3AMP9 INH (23:57)
[2019-03-29] MEDS ORDERED: MAGNESIUM SULFATE 50 ML IV ONE
[2019-03-29] MEDS ORDERED: NACL 0.9% 1,750 ML IV ONE
[2019-03-29] MEDS ORDERED: PIPERACILLIN/TAZO 3.375 GM in NS 50 ML IV ONE ×2
--- NOTE | 2019-03-29 | NUR ---
resting with family at bedside.
[2019-03-29] MEDS ORDERED: PIPERACILLIN/TAZOBACTAM 3.375 GM/VIAL (ZOSYN) IV ONE ×2 (00:40→05:03)
[2019-03-29] MEDS ORDERED: IPRATROPIUM/ALBUTEROL SULFATE 3 ML AMPUL.NEB (DUONEB) INH ONE ×2 (00:45)
--- NOTE | 2019-03-29 01:07 | NUR ---
Patient will be admitted to care of [facility]. Admitted to Tele unit. Will go to room 116B. Belongings list completed. Summary report printed. Report will be given at bedside.
--- NOTE | 2019-03-29 01:21 | NUR ---
ADMIT NOTE Received pt from ER to the floor with a diagnosis of copd. Admission process initiated. patient oriented to pain management, safety and call light-teach back done.
[2019-03-29 01:40] VITALS: BP_SYST 132
[2019-03-29] MEDS: NACL 0.9% 1,000 ML IV SCH ×3 (02:25→16:09)
[2019-03-29 05:35] LABS: BILIRUBIN,URINE NEGATIVE (NEGATIVE); BLOOD, URINE NEGATIVE (NEGATIVE); CLARITY/URINE CLEAR (CLEAR); COLOR,URINE YELLOW (YELLOW); GLUCOSE,URINE NEGATIVE (NEGATIVE); KETONES,URINE NEGATIVE (NEGATIVE); LEUKOCYTE ESTERASE ,URINE TRACE (NEGATIVE); NITRITE, URINE NEGATIVE (NEGATIVE); PH,URINE 5.5 (5.0-8.0); PROTEIN URINE TRACE (NEGATIVE); UROBILINOGEN,URINE 0.2 (0.2-1.0)
[2019-03-29 05:41] LABS: BACTERIA,URINE MODERATE /HPF (None Seen); RBC,URINE 0-3 /HPF (0-3)
[2019-03-29 05:42] LABS: YEAST,URINE Moderate /HPF (None Seen)
[2019-03-29] MEDS ORDERED: PIPERACILLIN/TAZO 3.375/DEX-IS 50 ML IV SCH ×2 (06:00→07:43)
--- NOTE | 2019-03-29 06:03 | NUR ---
PAGED PAGED DOCTOR MONTIEL
--- NOTE | 2019-03-29 06:28 | NUR ---
Dr. Starkey: Spoke with Dr. Starkey over phone, MD was made aware regarding patient's complaint of shortness of breath with wheezing to bilateral upper lobes. New orders received, verified by read-back, RN to input orders.
[2019-03-29] MEDS ORDERED: methylPREDNISolone SOD SUCC/PF 62.5 MG/ML VIAL IVP ONE (06:30)
[2019-03-29] MEDS: IPRATROPIUM/ALBUTEROL SULFATE 3 ML AMPUL.NEB (DUONEB) INH PRN ×5 (06:37→23:27)
[2019-03-29 06:39] VITALS: BP_SYST 132
--- NOTE | 2019-03-29 06:39 | NUR ---
Closing note: Patient is sitting up in bed, receiving breathing treatment. Patient received scheduled Solu-Medrol via IV prior to breathing treatment. IV fluids infusing well to left AC. All needs met. Safety and fall precautions observed. Hourly rounding performed throughout shift. Will endorse care to dayshift RN.
[2019-03-29] MEDS ORDERED: methylPREDNISolone SOD SUCC/PF 62.5 MG/ML VIAL ONE (06:41)
--- NOTE | 2019-03-29 07:33 | NUR ---
Opening Note received bedside SBAR report from associate account manager RN, patient resting in bed, no acute distress noted, educated patient on use of call light and asked to call for assistance, patient verbalized understanding, call light in reach, bed in low and locked position, bed alarm on.
[2019-03-29 07:47] LABS: CALCIUM 8.5 mg/dL (8.4-11.0); CREATININE 0.83 mg/dL (0.55-1.30); POTASSIUM 3.6 mmol/L (3.5-5.1)
[2019-03-29 07:51] LABS: ALBUMIN 2.6 g/dL (3.4-4.8); TOTAL BILIRUBIN 0.3 mg/dL (0.0-1.0)
[2019-03-29 07:58] LABS: BASOPHILS % (AUTO) 0.1 % (0.0-2.0); HEMATOCRIT 28.4 % (36-54); HEMOGLOBIN 9.6 g/dL (14.0-18.0); LYMPHOCYTES % (AUTO) 13.3 % (20.5-51.5); MEAN CORPUSCULAR HEMOGLOBIN 32 pg (27-31); MEAN CORPUSCULAR HGB CONC 34 % (32-36); MEAN CORPUSCULAR VOLUME 96 fL (79.0-98.0); MONOCYTES # (AUTO) 0.5 K/uL (0.0-1.0); MONOCYTES % (AUTO) 6.4 % (1.7-9.3); NEUTROPHILS # (AUTO) 6.3 K/uL (1.8-7.7); NEUTROPHILS % (AUTO) 80.2 % (40.0-70.0); PLATELET COUNT (AUTO) 172 K/uL (130-430); RED BLOOD CELL COUNT(AUTO) 2.97 MIL/uL (4.2-6.2); RED CELL DISTRIBUTION WIDTH 14.9 % (9.0-15.0); WHITE BLOOD COUNT (AUTO) 7.8 K/uL (4.8-10.8)
[2019-03-29 08:08] VITALS: BP_SYST 137
[2019-03-29] MEDS ORDERED: AZITHROMYCIN 500 MG in NS 250 ML IV SCH (09:00)
--- NOTE | 2019-03-29 09:55 | NUR ---
RN Rounds patient resting in bed, patients daughter at bedside, patient requesting coffee, provided patient with coffee, no additional needs at this time.
[2019-03-29] MEDS ORDERED: BUDESONIDE 0.5 MG/2 ML AMPUL.NEB INH ONE (11:00)
--- NOTE | 2019-03-29 11:02 | NUR ---
Physician Rounds Rounds with Dr. Mcmahan, informed him that patient is having complaints of shortness of breath , new orders received, verified with read back.
[2019-03-29] MEDS ORDERED: BUDESONIDE 0.5 MG/2 ML AMPUL.NEB ONE (11:16)
--- NOTE | 2019-03-29 11:57 | NUR ---
CONSULTATION PAGED/CALLED Reason for Consultation: COPD Person Who was Notified: TONG Consulting Physician: RANJAN/BERNARDO Air Traffic Control Operator Specialty: PULMO Ordering Physician: RODRICK
[2019-03-29] MEDS ORDERED: methylPREDNISolone SOD SUCC/PF 62.5 MG/ML VIAL IVP SCH (12:00)
[2019-03-29] MEDS: cefTRIAXone 1 GM in D5W 50 ML IV SCH (12:13)
[2019-03-29 12:14] LABS: CALCIUM 8.3 mg/dL (8.4-11.0); CREATININE 0.82 mg/dL (0.55-1.30); POTASSIUM 4.1 mmol/L (3.5-5.1)
--- NOTE | 2019-03-29 12:18 | NUR ---
RN Rounds patient sitting up in bed eating lunch, tolerating well, patient denies any pain or nausea, IV antibiotics infusing well, no redness or swelling noted at IV site.
[2019-03-29 13:18] VITALS: BP_SYST 134
--- NOTE | 2019-03-29 14:45 | NUR ---
RN Rounds patient resting in bed, patient denies any pain or nausea, no acute distress noted, no additional needs at this time.
[2019-03-29] MEDS ORDERED: ACETYLCYSTEINE 20% 4 ML VIAL (RT) INH SCH (15:00)
--- NOTE | 2019-03-29 16:33 | NUR ---
RN Rounds patient resting in bed, patient states that shortness of breath has improved with breathing treatments, IV fluids infusing well, no redness or swelling noted at IV site.
[2019-03-29 17:58] VITALS: BP_SYST 137
--- NOTE | 2019-03-29 18:10 | NUR ---
RN Rounds patient sitting up in bed eating dinner, tolerating well, patient denies any nausea or shortness of breath, no acute distress noted.
--- NOTE | 2019-03-29 19:10 | NUR ---
Closing Note bedside SBAR report given to receiving RN, patient resting in bed, no acute distress noted, educated patient on use of call light and asked to call for assistance, patient verbalized understanding, call light in reach, bed in low and locked position, bed alarm on, care endorsed to fast food shift lead RN.
--- NOTE | 2019-03-29 19:30 | NUR ---
ROUNDS PATIENT IN BED, WATCHING TV, NOT IN DISTRESS, VITALS STABLE. DENIES ANY PAIN AND DISCOMFORT AT THIS TIME. ASSESSMENT DONE AND DOCUMENTED. SEE FLOWSHEET. NEEDS ATTENDED TO. SAFETY AND FALL PRECAUTION MEASURES IN PLACED. BED IN LOW AND LOCKED POSITION. BED ALARM ON. CALL LIGHT PLACED WITHIN REACH.
[2019-03-29] MEDS: BUDESONIDE 0.5 MG/2 ML AMPUL.NEB INH SCH (20:01)
[2019-03-29] MEDS: guaiFENesin ER 600 MG TAB PO SCH (20:47)
[2019-03-29] MEDS: methylPREDNISolone SOD SUCC/PF 62.5 MG/ML VIAL IVP SCH (20:47)
--- NOTE | 2019-03-29 21:14 | NUR ---
MEDICATION DUE MEDICATIONS GIVEN SCHEDULED, TOLERATED WELL. WILL CONTINUE TO MONITOR.
--- NOTE | 2019-03-30 00:14 | NUR ---
PATIENT RESTING: Patient resting quietly. No acute distress noted. Vital signs within normal range.
[2019-03-30 01:02] VITALS: BP_SYST 141
--- NOTE | 2019-03-30 02:13 | NUR ---
ROUNDS PATIENT ASLEEP, RESPIRATIONS EVEN AND UNLABORED, NO PAIN AND DISCOMFORT NOTED. WILL CONTINUE TO MONITOR.
--- NOTE | 2019-03-30 04:12 | NUR ---
PATIENT RESTING: Patient resting quietly. No acute distress noted. Vital signs within normal range.
--- NOTE | 2019-03-30 06:18 | NUR ---
CLOSING NOTES PATIENT AWAKE, WATCHING TV, NOT IN DISTRESS, VITALS STABLE. DENIES ANY PAIN AND DISCOMFORT NOTED. ALL NEEDS ATTENDED TO. SAFETY MEASURES MAINTAINED. CALL LIGHT PLACED WITHIN REACH.
[2019-03-30 06:36] LABS: BASOPHILS % (AUTO) 0.2 % (0.0-2.0); HEMOGLOBIN 9.2 g/dL (14.0-18.0); LYMPHOCYTES # (AUTO) 0.4 K/uL (1.0-5.5); LYMPHOCYTES % (AUTO) 5.7 % (20.5-51.5); MEAN CORPUSCULAR HEMOGLOBIN 33 pg (27-31); MEAN CORPUSCULAR HGB CONC 34 % (32-36); MEAN CORPUSCULAR VOLUME 95 fL (79.0-98.0); MONOCYTES # (AUTO) 0.3 K/uL (0.0-1.0); MONOCYTES % (AUTO) 5.5 % (1.7-9.3); NEUTROPHILS # (AUTO) 5.5 K/uL (1.8-7.7); NEUTROPHILS % (AUTO) 88.6 % (40.0-70.0); PLATELET COUNT (AUTO) 170 K/uL (130-430); RED BLOOD CELL COUNT(AUTO) 2.82 MIL/uL (4.2-6.2); RED CELL DISTRIBUTION WIDTH 14.8 % (9.0-15.0); WHITE BLOOD COUNT (AUTO) 6.2 K/uL (4.8-10.8)
[2019-03-30 06:47] LABS: ALBUMIN 2.5 g/dL (3.4-4.8); CALCIUM 8.3 mg/dL (8.4-11.0); CREATININE 0.76 mg/dL (0.55-1.30); TOTAL BILIRUBIN 0.2 mg/dL (0.0-1.0)
--- NOTE | 2019-03-30 07:01 | NUR ---
Nutrition Update Jose A Scale 16 noted. Pt admitted for COPD Diet: Cardiac Low CHOL Low Fat 2gm Na BMI: 17.4 kg/m2 RD to follow per nutrition care standards.
--- NOTE | 2019-03-30 07:15 | NUR ---
Opening Note received bedside SBAR report from shift mechanic RN, patient resting in bed, respirations even and unlabored on room air, no acute distress noted, patient denies any pain or shortness of breath, educated patient on use of call light and asked to call for assistance, patient verbalized understanding, call light in reach, bed in low and locked position, bed alarm on.
[2019-03-30] MEDS: BUDESONIDE 0.5 MG/2 ML AMPUL.NEB INH SCH ×2 (07:48→19:55)
[2019-03-30 08:00] VITALS: BP_SYST 141
[2019-03-30] MEDS: guaiFENesin ER 600 MG TAB PO SCH ×2 (08:55→21:13)
[2019-03-30] MEDS: FUROSEMIDE 20 MG/2 ML VIAL IVP SCH (08:55)
[2019-03-30] MEDS: methylPREDNISolone SOD SUCC/PF 62.5 MG/ML VIAL IVP SCH ×2 (08:55→21:13)
--- NOTE | 2019-03-30 09:38 | NUR ---
RN Rounds patient sitting up in bed eating breakfast, tolerating well, no acute distress noted, patient denies any pain.
--- NOTE | 2019-03-30 11:12 | NUR ---
Physical Therapy physical therapy at bedside working with patient, patient tolerating well.
[2019-03-30] MEDS: IPRATROPIUM/ALBUTEROL SULFATE 3 ML AMPUL.NEB (DUONEB) INH PRN ×5 (11:47→23:15)
[2019-03-30] MEDS: cefTRIAXone 1 GM in D5W 50 ML IV SCH (12:09)
[2019-03-30] MEDS ORDERED: MORPHINE 2 MG/ML INJ. SYRINGE IVP ONE (12:30)
--- NOTE | 2019-03-30 12:32 | NUR ---
Spoke with MD spoke with Dr. Devries, informed him of patient complaint of tightness/sharpness in the chest, new orders received, verified with read back, educated patient and patients daughter on use and side effects of morphine, patient and patients daughter verbalized understanding, patient tolerated medication administration well, no acute distress noted, EKG being completed at this time, patients daughter at bedside.
[2019-03-30] MEDS ORDERED: MORPHINE 2 MG/ML INJ. SYRINGE ONE (12:38)
[2019-03-30 12:45] VITALS: BP_SYST 138
[2019-03-30 12:55] VITALS: BP_SYST 138
--- NOTE | 2019-03-30 13:07 | NUR ---
RN Rounds patient reports chest pain has improved with morphine, no acute distress noted, patient sitting up in bed eating lunch, patients daughter at bedside.
--- NOTE | 2019-03-30 14:22 | NUR ---
to CT patient taken to CT via gurney, no acute distress noted.
[2019-03-30] MEDS ORDERED: IOHEXOL 350 mgI/mL, 150 ML INFUS..BTL IV ONE (14:24)
--- NOTE | 2019-03-30 14:55 | NUR ---
back from CT patient brought back from CT via gurney, patient resting in bed, IV fluids infusing well, no acute distress noted.
--- NOTE | 2019-03-30 16:22 | NUR ---
Incontinent/Wound Care patient incontinent of bladder, patient cleaned and linen changed, assisted patient to reposition, patient tolerated well, educated patient on purpose and procedure for wound care, patient verbalized understanding, wound care completed, patient tolerated well, patient denies any pain during or after wound care, patient resting in bed.
[2019-03-30 16:50] VITALS: BP_SYST 137
--- NOTE | 2019-03-30 18:09 | NUR ---
Spoke with Physician spoke with Dr. Devries, informed him of patient complaint of back pain, new medication orders received, verified with read back.
[2019-03-30] MEDS: HYDROcodone/ACETAMIN 5-325 MG TAB (NORCO/ VICODIN) PO PRN (18:23)
--- NOTE | 2019-03-30 18:25 | NUR ---
Pain Management/Medication patient complaint of pain, patient requesting PRN pain medication, educated patient on use and side effects of PRN norco, patient verbalized understanding, tolerated medication administration well, no acute distress noted, no additional needs at this time.
[2019-03-30] MEDS: NACL 0.9% 1,000 ML IV SCH (18:26)
--- NOTE | 2019-03-30 19:21 | NUR ---
Closing Note bedside SBAR report given to receiving RN, patient resting in bed, no acute distress noted, patient reports pain is controlled, educated patient on use of call light and asked to call for assistance, patient verbalized understanding, call light in reach, bed in low and locked position, bed alarm on, care endorsed to yacht captain RN.
--- NOTE | 2019-03-30 19:35 | NUR ---
Pt was received lying in bed fully awake, alert and oriented x3. No c/o pain or discomfort and no acute distress noted at this time. IVF of NS is infusing well in LAC at 30ml/hr without any signs of infiltration at the IV site. Fall and safety precautions are in place. Call light is with pt and bed alarm is on. Pt was instructed to call for assistance as needed and pt verbalized understanding.
[2019-03-30 20:00] VITALS: BP_SYST 147
--- NOTE | 2019-03-30 21:30 | NUR ---
Pt is resting quietly in bed and denies pain or discomfort. Fall and safety precautions are in place.
[2019-03-31] VITALS: BP_SYST 144
--- NOTE | 2019-03-31 | NUR ---
Pt is resting quietly in bed. No signs of distress noted. IVF is infusing well in [facility]. Fall and safety precautions are in place.
--- NOTE | 2019-03-31 02:00 | NUR ---
Pt is sleeping without any distress noted. IVF is infusing well in [facility]. Call light is with pt and bed alarm is on.
--- NOTE | 2019-03-31 04:00 | NUR ---
Pt is resting without any distress noted. Fall and safety precautions are in place.
[2019-03-31] MEDS: IPRATROPIUM/ALBUTEROL SULFATE 3 ML AMPUL.NEB (DUONEB) INH PRN ×5 (05:24→19:31)
--- NOTE | 2019-03-31 06:30 | NUR ---
Pt is awake and resting quietly in bed. No acute distress noted at this time. IVF is infusing well in [facility]. Will endorse to day shift nurse.
[2019-03-31] MEDS: BUDESONIDE 0.5 MG/2 ML AMPUL.NEB INH SCH ×2 (07:46→19:47)
[2019-03-31 08:00] VITALS: BP_SYST 145
--- NOTE | 2019-03-31 08:00 | NUR ---
ASSUMPTION OF CARE: RECEIVED PT A/A/OX4, DX:INADEQUATE VENTILATION, R/T COPD, AFEBRILE, VS WNL, BREATH SOUNDS ARE RHONCHI, BREATHING IS SLIGHTLY LABORED ON EXERTION, RR=20, O2 SAT=96% ORA, BREATHING TX ORDERED BY Meagan, NO EDEMA NOTED, COLOR IS GOOD, SKIN WARM, DRY TO TOUCH, IV SITE INTACT, PATENT, NO REDNESS OR SWELLING, NO C/O PAIN, NO S/S OF DISTRESS, ORIENTED TO UNIT, CALL LIGHT PLACED WITHIN REACH, WILL CON'T TO MONITOR AND ASSESS.
[2019-03-31] MEDS: FUROSEMIDE 20 MG/2 ML VIAL IVP SCH (08:05)
[2019-03-31] MEDS: guaiFENesin ER 600 MG TAB PO SCH ×2 (08:05→21:21)
[2019-03-31] MEDS: methylPREDNISolone SOD SUCC/PF 62.5 MG/ML VIAL IVP SCH ×2 (08:05→21:21)
--- NOTE | 2019-03-31 08:45 | NUR ---
certified medical coding specialist: morning meds given, as per ordered by paula, tolerated well, will con't with plan of care.
--- NOTE | 2019-03-31 09:00 | NUR ---
visit: at bedside for assessment of pt, new orders given, will con't to monitor and assess. Addendum: 03/31/19 at 1249 by Ashley Wade RN wrong patient
--- NOTE | 2019-03-31 09:15 | NUR ---
physical therapy: pt refuses to ambulate with assist of physical therapy, will make second attempt later.
[2019-03-31] MEDS: ENOXAPARIN SODIUM 60 MG/0.6 ML SYRINGE SQ SCH ×2 (10:00→21:00)
--- NOTE | 2019-03-31 11:30 | NUR ---
glucose monitoring: blood sugar [id number], 2 units regular insulin given sq, tolerated well, will con't to monitor and assess. Addendum: 03/31/19 at 1248 by Ashley Wade RN wrong patient
[2019-03-31 11:43] VITALS: BP_SYST 149
--- NOTE | 2019-03-31 12:30 | NUR ---
physical therapy: pt refuses to ambulate with assist of physical therapy, will make second attempt later.
--- NOTE | 2019-03-31 12:44 | NUR ---
PT note Attempted multiple times to have patient participate with therapy; patient refusing at this time, nursing made aware.
--- NOTE | 2019-03-31 14:00 | NUR ---
NURSES NOTES: PT RESTING WHILE WATCHING TELEVISION, NO C/O PAIN OR DISCOMFORT, PARTIAL BATH GIVEN, PARTIAL LINEN CHANGED AT THIS TIME, REPOSITIONED FOR COMFORT, WILL CON'T WITH POC.
[2019-03-31] MEDS: cefTRIAXone 1 GM in D5W 50 ML IV SCH (14:31)
--- NOTE | 2019-03-31 14:34 | NUR ---
Dietitian Recommendations * Recommend cardiac diet w/ Ensure Enlive TID, Prosource BID, Dax BID (ONS and modulars provide 1350 kcal/day, 95 gm protein/day) JAYME, SELINA Please refer to Nutrition Assessment for details. Addendum: 03/31/19 at [address] Amended: Links added.
[2019-03-31 16:30] VITALS: BP_SYST 149
[2019-03-31] MEDS ORDERED: ENOXAPARIN SODIUM 60 MG/0.6 ML SYRINGE SQ ONE (16:30)
--- NOTE | 2019-03-31 19:15 | NUR ---
Pt is lying in bed fully awake, alert and oriented x3. No c/o pain or discomfort and no acute distress noted at this time. Pt's daughter is visiting at the bedside. IVF of NS is infusing well in LAC at 30ml/hr without any signs of infiltration at the IV site. Fall and safety precautions are in place. Call light is with pt and bed alarm is on. Pt was instructed to call for assistance as needed and pt verbalized understanding.
[2019-03-31 20:00] VITALS: BP_SYST 130
--- NOTE | 2019-03-31 20:50 | NUR ---
Pt was incontinent of large amount of clear yellowish urine. Pt also incontinent of large amount of formed brownish stool. Avni care given and z guard was applied to pt's buttocks and perineal areas. Pt very short of breath after avni care, but declined oxygen. HOB elevated 45 degrees with relief. O2 sat 97%. Call light is with pt and bed alarm on.
[2019-03-31] MEDS: NACL 0.9% 1,000 ML IV SCH (21:20)
--- NOTE | 2019-03-31 23:00 | NUR ---
Pt is resting quietly in bed. No c/o pain or discomfort and no acute distress noted. IVF is infusing well in [facility]. Fall and safety precautions are in place.
[2019-04-01] VITALS: BP_SYST 134
--- NOTE | 2019-04-01 01:00 | NUR ---
Pt is sleeping comfortably in bed. Fall and safety precautions are in place. Call light is with pt and bed alarm is on.
[2019-04-01] MEDS: IPRATROPIUM/ALBUTEROL SULFATE 3 ML AMPUL.NEB (DUONEB) INH PRN ×3 (01:28→19:44)
--- NOTE | 2019-04-01 03:00 | NUR ---
Pt is awake and drinking coffee. No c/o pain or discomfort. Call light is with pt and bed alarm is on.
--- NOTE | 2019-04-01 04:37 | NUR ---
Pt is sleeping comfortably in bed. IVF is infusing well in [facility]. Fall and safety precautions are in place.
--- NOTE | 2019-04-01 06:52 | NUR ---
Pt is awake and resting quietly in bed. No acute distress noted at this time. IVF is infusing well in [facility]. Will endorse to day shift nurse.
[2019-04-01] MEDS: BUDESONIDE 0.5 MG/2 ML AMPUL.NEB INH SCH ×2 (07:57→19:53)
[2019-04-01 08:00] VITALS: BP_SYST 155
--- NOTE | 2019-04-01 08:00 | NUR ---
ASSUMPTION OF CARE: RECEIVED PT A/A/OX4, DX:INADEQUATE VENTILATION, R/T COPD, AFEBRILE, VS WNL, BREATH SOUNDS ARE RHONCHI, BREATHING IS SLIGHTLY LABORED ON EXERTION, RR=20, O2 SAT=97% ORA, BREATHING TX ORDERED BY Meagan, NO EDEMA NOTED, COLOR IS GOOD, SKIN WARM, DRY TO TOUCH, IV SITE INTACT, PATENT, NO REDNESS OR SWELLING, NO C/O PAIN, NO S/S OF DISTRESS, ORIENTED TO UNIT, CALL LIGHT PLACED WITHIN REACH, WILL CON'T TO MONITOR AND ASSESS.
[2019-04-01 08:15] LABS: BASOPHILS % (AUTO) 0.1 % (0.0-2.0); HEMATOCRIT 27.6 % (36-54); LYMPHOCYTES # (AUTO) 0.4 K/uL (1.0-5.5); LYMPHOCYTES % (AUTO) 6.9 % (20.5-51.5); MEAN CORPUSCULAR HEMOGLOBIN 33 pg (27-31); MEAN CORPUSCULAR HGB CONC 34 % (32-36); MEAN CORPUSCULAR VOLUME 95 fL (79.0-98.0); MONOCYTES # (AUTO) 0.4 K/uL (0.0-1.0); MONOCYTES % (AUTO) 8.2 % (1.7-9.3); NEUTROPHILS # (AUTO) 4.4 K/uL (1.8-7.7); NEUTROPHILS % (AUTO) 84.8 % (40.0-70.0); PLATELET COUNT (AUTO) 165 K/uL (130-430); RED BLOOD CELL COUNT(AUTO) 2.92 MIL/uL (4.2-6.2); RED CELL DISTRIBUTION WIDTH 14.4 % (9.0-15.0); WHITE BLOOD COUNT (AUTO) 5.2 K/uL (4.8-10.8)
[2019-04-01 08:19] LABS: HEMOGLOBIN 9.5 g/dL (14.0-18.0)
[2019-04-01 08:23] LABS: ALANINE AMINOTRANSFERASE 84 U/L (12-78); ALBUMIN 2.4 g/dL (3.4-4.8); ASPARTATE AMINOTRANSFERASE 22 U/L (10-37); CALCIUM 9.2 mg/dL (8.4-11.0); CHLORIDE 103 mmol/L (98-107); GLUCOSE 141 mg/dL (70-99); POTASSIUM 3.6 mmol/L (3.5-5.1); SODIUM SERUM 139 mmol/L (136-145); TOTAL BILIRUBIN 0.3 mg/dL (0.0-1.0); UREA NITROGEN, BLOOD 15 mg/dL (8-21)
[2019-04-01 08:34] LABS: ANION GAP < 3 (5-15); GFR AFRICAN AMERICAN 146 mL/min (>90)
--- NOTE | 2019-04-01 09:00 | NUR ---
DIRECTOR OF CORPORATE STRATEGY: Morning meds given, as per ordered by paula, tolerated well, will con't with plan of care.
[2019-04-01 09:08] VITALS: BP_SYST 134
[2019-04-01] MEDS: methylPREDNISolone SOD SUCC/PF 62.5 MG/ML VIAL IVP SCH ×2 (09:18→21:11)
[2019-04-01] MEDS: FUROSEMIDE 20 MG/2 ML VIAL IVP SCH (09:18)
[2019-04-01] MEDS: guaiFENesin ER 600 MG TAB PO SCH ×2 (09:19→21:11)
[2019-04-01] MEDS: ENOXAPARIN SODIUM 60 MG/0.6 ML SYRINGE SQ SCH ×2 (09:20→21:13)
[2019-04-01] MEDS: cefTRIAXone 1 GM in D5W 50 ML IV SCH (12:05)
[2019-04-01 12:26] VITALS: BP_SYST 148
--- NOTE | 2019-04-01 13:15 | NUR ---
CRITICAL LABS: RECEIVED RESULTS FOR TROPONIN=0.829, CALL PLACED TO AWAITING CALL BACK, PT IS STABLE, WILL CON'T WITH POC.
[2019-04-01 15:50] VITALS: BP_SYST 112
--- NOTE | 2019-04-01 16:00 | NUR ---
NURSES NOTES: PT OBSEVERED RESTING IN BED, IN POSITION OF COMFORT, NO C/O PAIN, NEEDS MET, WILL CON'T WITH POC.
--- NOTE | 2019-04-01 19:21 | NUR ---
Pt was received lying in bed fully awake, alert and oriented x3. No c/o pain or discomfort and no acute distress noted. Pt's daughter is visiting at the bedside. IVF of NS is infusing well in LAC at 30ml/hr without any signs of infiltration at the IV site. Fall and safety precautions are in place. Call light is with pt and bed alarm is on. Pt was instructed to call for assistance as needed and pt verbalized understanding.
[2019-04-01 20:00] VITALS: BP_SYST 119
[2019-04-01] MEDS: NACL 0.9% 1,000 ML IV SCH (21:10)
--- NOTE | 2019-04-01 21:13 | NUR ---
Scheduled HS medications given. No c/o pain or discomfort. Call light is with pt and bed alarm is on.
--- NOTE | 2019-04-01 23:00 | NUR ---
Pt is resting comfortably in bed and watching TV. Call light is with pt and bed alarm is on.
--- NOTE | 2019-04-02 01:15 | NUR ---
Pt is awake and watching TV. Pt was given 1/2 turkey sandwich and 1 cup pudding per his request. Call light is with pt and bed alarm is on. IVF is infusing well in LAC without any signs of infiltration.
--- NOTE | 2019-04-02 03:45 | NUR ---
Pt is sleeping comfortably in bed. IVF is infusing well in [facility]. Fall and safety precautions are in place. Call light is with pt and bed alarm is on.
--- NOTE | 2019-04-02 05:00 | NUR ---
Pt is sleeping comfortably in bed. IVF is infusing well in [facility]. Fall and safety precautions are in place.
[2019-04-02] MEDS: IPRATROPIUM/ALBUTEROL SULFATE 3 ML AMPUL.NEB (DUONEB) INH PRN ×4 (06:18→23:00)
[2019-04-02] MEDS: BUDESONIDE 0.5 MG/2 ML AMPUL.NEB INH SCH ×2 (06:18→20:31)
[2019-04-02 06:25] LABS: EOSINOPHILS % (AUTO) 0.2 % (0.0-4.0); HEMATOCRIT 27.6 % (36-54); HEMOGLOBIN 9.8 g/dL (14.0-18.0); LYMPHOCYTES # (AUTO) 0.3 K/uL (1.0-5.5); LYMPHOCYTES % (AUTO) 6.2 % (20.5-51.5); MEAN CORPUSCULAR HEMOGLOBIN 34 pg (27-31); MEAN CORPUSCULAR HGB CONC 36 % (32-36); MEAN CORPUSCULAR VOLUME 95 fL (79.0-98.0); MONOCYTES # (AUTO) 0.5 K/uL (0.0-1.0); MONOCYTES % (AUTO) 9.3 % (1.7-9.3); NEUTROPHILS # (AUTO) 4.1 K/uL (1.8-7.7); NEUTROPHILS % (AUTO) 83.3 % (40.0-70.0); PLATELET COUNT (AUTO) 166 K/uL (130-430); RED BLOOD CELL COUNT(AUTO) 2.89 MIL/uL (4.2-6.2); RED CELL DISTRIBUTION WIDTH 14.2 % (9.0-15.0); WHITE BLOOD COUNT (AUTO) 4.9 K/uL (4.8-10.8)
[2019-04-02 06:31] LABS: CALCIUM 8.4 mg/dL (8.4-11.0); CREATININE 0.7 mg/dL (0.55-1.30); POTASSIUM 4.1 mmol/L (3.5-5.1)
--- NOTE | 2019-04-02 06:45 | NUR ---
Pt is awake and resting quietly in bed. No acute distress noted at this time. IVF is infusing well in [facility]. Will endorse to day shift nurse.
--- NOTE | 2019-04-02 07:30 | NUR ---
AM ROUNDS: PATIENT AWAKE DURING ROUNDS.CALL LIGHT WITH IN REACH. BED LOCKED AT LOWEST POSITION. NO ACUTE DISTRESS. CONTINUE TO MONITOR.
[2019-04-02 08:29] VITALS: BP_SYST 114
[2019-04-02] MEDS: methylPREDNISolone SOD SUCC/PF 62.5 MG/ML VIAL IVP SCH ×2 (09:14→20:39)
[2019-04-02] MEDS: FUROSEMIDE 20 MG/2 ML VIAL IVP SCH (09:14)
[2019-04-02] MEDS: guaiFENesin ER 600 MG TAB PO SCH ×2 (09:14→20:39)
[2019-04-02] MEDS: ENOXAPARIN SODIUM 60 MG/0.6 ML SYRINGE SQ SCH ×2 (09:16→20:39)
--- NOTE | 2019-04-02 09:55 | NUR ---
Pt note Patient refusing therapy at this time; nursing made aware, will try again tomorrow.
--- NOTE | 2019-04-02 11:05 | NUR ---
WOUND CARE: CLEANSE WITH NS RIGHT POSTERIOR SHOULDER,PAT DRY,SURE PREP AND FOAM DRESSING APPLIED.RIGHT POSTERIOR HIP,CLEANSE WITH NS,PAT DRY,SURE PREP AND FOAM DRESSING APPLIED.
--- NOTE | 2019-04-02 11:31 | NUR ---
WOUND EVALUATION: Wound Consult received from Dr. Devries. Thank you, Dr. Devries, for the consult. Patient is awake and alert, and received in a Tray bed. Jose A score is an 18. Past Medical History: COPD, CHF, hyperlipidemia, noncompliant with diet, medications and follow-up, right foot drop secondary to spinal stenosis, tobacco use, heavy smoker, continues to smoke. Recent Labs: WBC 4.9, RBC 2.89, Hgb 9.8, Hct 27.6, PT 8.9, INR 0.8, PTT 17.8, Glucose 149. Microbiology: No growth in blood cultures, no MRSA isolated. Intrinsic Factors that delay wound healing: COPD, smoker, hyperlipidemia, hypoalbuminemia. Extrinsic factors that decrease wound healing: decreased mobility, noncompliance with medications and follow-ups. Skin Assessment: All areas below present on admission: 1. Right Forearm: Skin tear, ecchymosis, multiple scabs, present on admission. Skin tear has 90% red tissue, 10% black scab. No odor, no drainage. Periwound and surround tissue has ecchymosis. Wound measures 3.3 cm x 0.5 cm. Recommend: Cleanse area with normal saline. Apply sureprep to periwound. Apply venelex ointment to skin tear bed. Cover with foam dressing. Perform site care daily and as needed for dressing soiling or dislodgement. 2. Left Forearm: Multiple areas of ecchymosis, present on admission. 3. Chest: Multiple areas of ecchymosis bilaterally, present on admission. Recommend: No dressings needed. Continue to monitor sites qshift. 4. Right Posterior Shoulder: Wound of unknown etiology, present on admission. Wound bed has 100% dry yellow tissue. No odor, no drainage. Periwound intact. Wound measures 1.4 cm x 0.3 cm. 5. Right Outer Hip: Wound of unknown etiology, present on admission. Wound bed has 100% brown scab. No odor, no drainage. Periwound intact. Wound measures 1.0 cm x 0.5 cm. Recommend: Cleanse area with normal saline. Apply sureprep to periwound. Apply venelex ointment to skin tear bed. Cover with foam dressing. Perform site care daily and as needed for dressing soiling or dislodgement. 6. Buttocks: Dry peeling skin, present on admission. Recommend: Cleanse area with mild soap and water. Pat dry. Apply hydraguard barrier cream to involved area. Perform site care qid and as needed for soiling. 7. Left Heel: Blanchable erythema and dry flaky skin, present on admission. 8. Right Heel: Blanchable erythema and dry flaky skin, present on admission. Recommend: Elevate, offload and float bilateral heels at all times with one pillow lengthwise under each extremity. Also recommend: Reposition patient side to side only every two hours with pillow support, and off-load pressure areas with pillows for pressure re-distribution. Do not place patient on right hip wound area. Perform skin care and monitor skin integrity q shift. Elevate, offload and float bilateral heels at all times with one pillow lengthwise under each extremity. Use hydraguard barrier cream on reddened and moisture susceptible areas qid and prn for soiling. Place patient on low air-loss therapy.
[2019-04-02] MEDS: cefTRIAXone 1 GM in D5W 50 ML IV SCH (12:00)
[2019-04-02 12:08] VITALS: BP_SYST 139
--- NOTE | 2019-04-02 12:30 | NUR ---
LUNCH: DAUGHTER AT THE BEDSIDE. ASSISTING DURING LUNCH.
[2019-04-02] MEDS ORDERED: BALSAM PERU/CASTOR OIL 60 GM OINT...G. TP ONE (13:15)
--- NOTE | 2019-04-02 14:30 | NUR ---
RN ROUNDS: SLEEPING DURING ROUNDS. NO ACUTE DISTRESS.
--- NOTE | 2019-04-02 16:27 | NUR ---
RN ROUNDS: RESTING. STABLE.
[2019-04-02 16:49] VITALS: BP_SYST 119
--- NOTE | 2019-04-02 18:29 | NUR ---
CLOSING NOTES: PRACTICE GUIDELINES MET THROUGH OUT SHIFT. CALL LIGHT WITH IN REACH. BED LOCKED AT LOWEST POSITION. BED ALARM ON.NO ACUTE DISTRESS.
--- NOTE | 2019-04-02 19:50 | NUR ---
PM ASSESSMENT Pt received in bed with eyes open resting comfortably. No signs of acute distress or discomfort noted. Family at bedside. Pt AAOx4 and able to verbalize needs. Pt on RA with even and unlabored breathing. Pt has a L AC 18g, infusing NA @ 30 cc/hr. IV c/d/i. Pt doesn't verbalize any needs at this time. Bed is locked and in lowest position, call light within reach, will cont to monitor.
[2019-04-02 20:00] VITALS: BP_SYST 131
--- NOTE | 2019-04-02 23:05 | NUR ---
RN ROUNDS Pt in bed with eyes open watching tv. Receiving breathing treatment at this time. No signs of acute distress or discomfort noted at this time. Will cont to monitor.
[2019-04-02 23:32] VITALS: BP_SYST 134
--- NOTE | 2019-04-03 02:15 | NUR ---
RN ROUNDS Pt in bed with eyes open resting comfortably. No signs of acute distress or discomfort noted. Pt doesn't verbalize any needs at this time. Will cont to monitor pt.
--- NOTE | 2019-04-03 03:55 | NUR ---
Pt states he was scratching his right forearm when he said he started to bleed. Noticed a skin tear. Cleansed skin tear with NS, pat dry and covered with foam dressing. Will cont to monitor pt.
[2019-04-03] MEDS: NACL 0.9% 1,000 ML IV SCH (06:34)
--- NOTE | 2019-04-03 06:45 | NUR ---
Closing notes Pt in bed with eyes open watching TV and resting comfortably. No signs of acute distress or discomfort noted. Pt has L AC 18G infusing NS @ 30 cc/hr. IV c/d/i. Pt on RA tolerating well with even and unlabored breathing. Pt doesn't verbalize any needs at this time. Bed is locked and in lowest position, call light within reach.
[2019-04-03] MEDS: BUDESONIDE 0.5 MG/2 ML AMPUL.NEB INH SCH ×2 (07:36→20:12)
--- NOTE | 2019-04-03 07:58 | NUR ---
opening Note Report received from Candice HARO shift nurse. Pt is awake and sitting in bed getting a breathing tx. No signs of distress noted at the moment. Call light is within reach and bed is in the lowest position. Will continue to monitor.
[2019-04-03 08:23] VITALS: BP_SYST 132
[2019-04-03] MEDS: methylPREDNISolone SOD SUCC/PF 62.5 MG/ML VIAL IVP SCH (08:50)
[2019-04-03] MEDS: FUROSEMIDE 20 MG/2 ML VIAL IVP SCH (08:50)
[2019-04-03] MEDS: guaiFENesin ER 600 MG TAB PO SCH ×2 (08:50→20:32)
[2019-04-03] MEDS: BALSAM PERU/CASTOR OIL 60 GM OINT...G. TP SCH ×2 (08:56→20:37)
[2019-04-03] MEDS: ENOXAPARIN SODIUM 60 MG/0.6 ML SYRINGE SQ SCH ×2 (08:56→20:35)
--- NOTE | 2019-04-03 10:30 | NUR ---
Rounds Pt is resting in bed. Call light is within reach.
[2019-04-03] MEDS: cefTRIAXone 1 GM in D5W 50 ML IV SCH (11:34)
[2019-04-03 12:00] VITALS: BP_SYST 132
--- NOTE | 2019-04-03 12:48 | NUR ---
Rounds Pt is having lunch in bed. Daughter is at the bedside.
--- NOTE | 2019-04-03 14:15 | NUR ---
Rounds Pt is resting in bed. No signs of distress at the moment.
[2019-04-03] MEDS: IPRATROPIUM/ALBUTEROL SULFATE 3 ML AMPUL.NEB (DUONEB) INH PRN ×2 (14:51→17:44)
--- NOTE | 2019-04-03 16:48 | NUR ---
Rounds Pt is sitting bed. Call light is within reach.
[2019-04-03 17:17] VITALS: BP_SYST 128
[2019-04-03] MEDS: PREDNISONE 20 MG TABLET PO SCH (17:44)
--- NOTE | 2019-04-03 18:17 | NUR ---
PHYSICAL THERAPY CO-SIGN The Physical Therapy Progress Notes documented by Tumbling Barrel Painter have been reviewed. Reviewed/Co-Signed by: Margareth West PT Documentation Done by:NEHEMIAS MOHAN SALES DEVELOPMENT REPRESENTATIVE 04/02/19 Hgb=9.8; 04/03/19 TROPONIN=0.324 CARDIAC PREC, POC REVIEWED W/ SALES DEVELOPMENT REPRESENTATIVE Addendum: 04/03/19 at 1817 by Margareth West PT Amended: Links added.
--- NOTE | 2019-04-03 18:21 | NUR ---
Closing Note Pt is sitting up in bed. Has been receiving breathing tx as scheduled and PRN. IV is on the LAC 18g running NS@30. Call light is within reach and bed is in the lowest position. Will endorse care to the oncoming nurse.
[2019-04-03 19:45] VITALS: BP_SYST 143
--- NOTE | 2019-04-03 19:45 | NUR ---
Opening notes Pt AAOx4, VSS, on room air saturating at 94%. No s/s distress or discomfort noted. IVF infusing as ordered L.AC no s/s infiltration. Multiple scabs/bruising noted on hector arms. Call light within reach. Daughter at bedside. Bed low, locked, siderails up x 2. Warm blanket provided. To monitor.
--- NOTE | 2019-04-03 20:37 | NUR ---
Wound care Dressing change to right forearm, noted small amount of bleeding. Cleansed with NS and aplied optifoam dressing. Pt tolerated well. TO monitor.
--- NOTE | 2019-04-03 23:28 | NUR ---
Rounds Pt sleeping at this time. No s/s distress or discomfort noted. Call light within reach. Bed low, locked, siderails up x3. To monitor.
--- NOTE | 2019-04-04 01:05 | NUR ---
Rounds Pt asleep, no s/s distress or discomfort noted. Call light wihin reach. Safety measures in place. To monitor.
[2019-04-04] MEDS: IPRATROPIUM/ALBUTEROL SULFATE 3 ML AMPUL.NEB (DUONEB) INH PRN ×3 (02:28→16:14)
[2019-04-04 02:34] VITALS: BP_SYST 136
--- NOTE | 2019-04-04 04:05 | NUR ---
Rounds Pt asleep, no s/s distress or discomfort noted. IVF infusing at ordered rate L. arm no s/s infiltration noted. Call light within reach. Bed maintained at a low position. To monitor.
--- NOTE | 2019-04-04 06:05 | NUR ---
Closing notes Pt awake, resting in bed watching TV. No s/s distress noted. Pt denies any pain at this time. IVF infusing at ordered rate L AC 18G clear and patent. Dressings on forearm C/D/I. Call light/items wihtin reach. Bed low, locked, siderails up x2. To endorse to AM nurse.
--- NOTE | 2019-04-04 07:15 | NUR ---
sbar report received at this time. patient aaox 4. lungs bilaterally slight crackles and diminished at the bases. both arms scattered bruises. and right forearm has skin tear. has optifoam dressing noted. dry/intact. has iv access on the right forearm #18 with Normal Saline at 30cc/hr infusing on well. bed low position, alarmed and locked. call lights within reach. instructed to call for assistance. turn to sides.
[2019-04-04 08:06] VITALS: BP_SYST 130
[2019-04-04] MEDS: BUDESONIDE 0.5 MG/2 ML AMPUL.NEB INH SCH ×2 (08:08→19:33)
--- NOTE | 2019-04-04 08:16 | NUR ---
patient aaox 4. verbalized just had a breathing treatment. vitals signs stable. afebrile.
--- NOTE | 2019-04-04 08:17 | NUR ---
has iv access on the left ac #18 with normal saline at 30cc/hr infusing on well.
--- NOTE | 2019-04-04 08:18 | NUR ---
scattered bruise both arms. has optifoam dressing on the right forearm. slight dyspneic but said im ok Oxygen sat 95% on room air.
[2019-04-04] MEDS: PREDNISONE 20 MG TABLET PO SCH ×2 (08:40→17:06)
[2019-04-04] MEDS: guaiFENesin ER 600 MG TAB PO SCH ×2 (08:40→22:30)
[2019-04-04] MEDS: FUROSEMIDE 20 MG/2 ML VIAL IVP SCH (08:41)
[2019-04-04] MEDS: ENOXAPARIN SODIUM 60 MG/0.6 ML SYRINGE SQ SCH ×2 (08:46→22:32)
--- NOTE | 2019-04-04 08:47 | NUR ---
called Patience Becerril to clean up the patient.
--- NOTE | 2019-04-04 10:00 | NUR ---
daughter at the bedside. patient watching tv and resting
[2019-04-04] MEDS: cefTRIAXone 1 GM in D5W 50 ML IV SCH (12:58)
[2019-04-04] MEDS: PENTOXIFYLLINE 400 MG TABLET.SA (TRENtal) PO SCH ×2 (12:58→17:06)
[2019-04-04] MEDS: NACL 0.9% 1,000 ML IV SCH (12:58)
--- NOTE | 2019-04-04 13:01 | NUR ---
due medication given. assists on adls.
[2019-04-04 13:17] VITALS: BP_SYST 131
--- NOTE | 2019-04-04 16:01 | NUR ---
Aylin Becerril clean up and provide perineal care at this time
[2019-04-04 17:06] VITALS: BP_SYST 117
[2019-04-04] MEDS: MONTELUKAST 10 MG TABLET PO SCH (17:06)
--- NOTE | 2019-04-04 17:30 | NUR ---
ultrasound doppler on bilateral lower extremities arterial done
--- NOTE | 2019-04-04 18:16 | NUR ---
eating dinner at this time. no complained made so far
[2019-04-04 20:00] VITALS: BP_SYST 143
--- NOTE | 2019-04-04 20:00 | NUR ---
AAOX4. IN NO APPARENT DISTRESS. VSS. DENIES PAIN. USES URINAL TO VOID. SINUS RHYTHM. NUMEROUS BRUISES NOTED.
--- NOTE | 2019-04-04 21:00 | NUR ---
SKIN TEAR NOTED ON RIGHT UPPER ARM, DRSG APPLIED. CARLOS MANUEL AGUILAR GAVE HS CARE. CLEANED.
--- NOTE | 2019-04-05 | NUR ---
SOUNDLY ASLEEP. ABLE TO REPOSITION SELF WELL.
[2019-04-05 00:43] VITALS: BP_SYST 141
--- NOTE | 2019-04-05 06:00 | NUR ---
SLEPT WELL MOST OF NIGHT. REMAINS IN GUARDED CONDITION.
[2019-04-05 07:14] LABS: BASOPHILS % (AUTO) 0.1 % (0.0-2.0); EOSINOPHILS % (AUTO) 0.1 % (0.0-4.0); HEMATOCRIT 28.7 % (36-54); HEMOGLOBIN 9.8 g/dL (14.0-18.0); LYMPHOCYTES # (AUTO) 0.5 K/uL (1.0-5.5); MEAN CORPUSCULAR HEMOGLOBIN 32 pg (27-31); MEAN CORPUSCULAR HGB CONC 34 % (32-36); MEAN CORPUSCULAR VOLUME 94 fL (79.0-98.0); MONOCYTES # (AUTO) 0.7 K/uL (0.0-1.0); MONOCYTES % (AUTO) 13.2 % (1.7-9.3); NEUTROPHILS # (AUTO) 4.1 K/uL (1.8-7.7); NEUTROPHILS % (AUTO) 77.6 % (40.0-70.0); PLATELET COUNT (AUTO) 178 K/uL (130-430); RED BLOOD CELL COUNT(AUTO) 3.06 MIL/uL (4.2-6.2); RED CELL DISTRIBUTION WIDTH 14.3 % (9.0-15.0); WHITE BLOOD COUNT (AUTO) 5.3 K/uL (4.8-10.8)
--- NOTE | 2019-04-05 07:15 | NUR ---
received report at the bedside. patient aaox 4. breathing even and slighly labored but patient had non productive cough noted. verbalized had breathing treatment given earlier. lungs bilaterally with crackles and diminished at the bases. O2 Saturation 98% on room air. abdomen soft and non distended. both arms with scattered bruises. had optifoam dressing rt forearm x 2. dry and intact.
[2019-04-05 07:28] LABS: ALANINE AMINOTRANSFERASE 87 U/L (12-78); ALBUMIN 2.3 g/dL (3.4-4.8); ASPARTATE AMINOTRANSFERASE 30 U/L (10-37); CHLORIDE 101 mmol/L (98-107); CREATININE 0.54 mg/dL (0.55-1.30); GLUCOSE 78 mg/dL (70-99); POTASSIUM 3.4 mmol/L (3.5-5.1); SODIUM SERUM 138 mmol/L (136-145); TOTAL BILIRUBIN 0.3 mg/dL (0.0-1.0); UREA NITROGEN, BLOOD 19 mg/dL (8-21)
[2019-04-05] MEDS: BUDESONIDE 0.5 MG/2 ML AMPUL.NEB INH SCH ×2 (07:30→18:50)
[2019-04-05 07:31] LABS: ANION GAP < 3 (5-15); GFR AFRICAN AMERICAN 197 mL/min (>90)
[2019-04-05] MEDS: ENOXAPARIN SODIUM 60 MG/0.6 ML SYRINGE SQ SCH ×2 (08:24→22:16)
[2019-04-05] MEDS: PREDNISONE 20 MG TABLET PO SCH ×2 (08:27→19:06)
[2019-04-05] MEDS: PENTOXIFYLLINE 400 MG TABLET.SA (TRENtal) PO SCH ×3 (08:27→19:00)
[2019-04-05] MEDS: guaiFENesin ER 600 MG TAB PO SCH ×2 (08:27→22:15)
[2019-04-05] MEDS: FUROSEMIDE 20 MG/2 ML VIAL IVP SCH (08:29)
--- NOTE | 2019-04-05 08:34 | NUR ---
lovenox therapy and lasix 20 mg iv given. flush wtih normal saline 10cc has non productive cough noted.
--- NOTE | 2019-04-05 08:34 | NUR ---
due medication given at this time. made comfortable. assists on adls.
[2019-04-05 08:40] VITALS: BP_SYST 115
[2019-04-05] MEDS ORDERED: POTASSIUM CHLORIDE 20 MEQ TAB.PRT.SR PO ONE (09:15)
--- NOTE | 2019-04-05 10:00 | NUR ---
perineal care done. turn to sides.
--- NOTE | 2019-04-05 12:00 | NUR ---
eating lunch no complained made so far
[2019-04-05 12:45] VITALS: BP_SYST 114
--- NOTE | 2019-04-05 14:00 | NUR ---
resting and watching tv. no pain nor acute distress noted.
--- NOTE | 2019-04-05 16:00 | NUR ---
has skin tear on the right upper arm and slight bleeding noted. photos not taken not working at this time. cleanse normal saline and apply optifoam dressing.
[2019-04-05 16:15] VITALS: BP_SYST 118
--- NOTE | 2019-04-05 18:00 | NUR ---
due medication given as ordered.
[2019-04-05] MEDS: IPRATROPIUM/ALBUTEROL SULFATE 3 ML AMPUL.NEB (DUONEB) INH PRN (18:35)
[2019-04-05] MEDS: BALSAM PERU/CASTOR OIL 60 GM OINT...G. TP SCH (18:58)
[2019-04-05] MEDS: NACL 0.9% 1,000 ML IV SCH (19:00)
[2019-04-05] MEDS: MONTELUKAST 10 MG TABLET PO SCH (19:00)
--- NOTE | 2019-04-05 19:30 | NUR ---
endorsed to incoming nurse Cece WILKERSON
--- NOTE | 2019-04-05 20:00 | NUR ---
REPORT/ INITIAL NOTES: BEDSIDE REPORT WITH ROCK AVENDA[facility]O AT 1920HR. PATIENT IN BED JUST FINISHED DINNER TRAY 75%.ANXIOUS WHEN HEARD MIGHT BE GOING HOME IN AM. REASSURANCES PROVIDED. IVF MACHINE OFF. DENIES SOB NOR CHEST PAIN. HAVING PRODUCTIVE COUGHS. BREATHING TX IN PROCESS. SINUS RHYTHM. MULTIPLE MOD./LARGE SIZES OF BRUISES ON BOTH UPPER EXTREMITIES. CALL LIGHT WITHIN REACH. BED IN LOW POSITION. FAMILY AT
[2019-04-05 20:10] VITALS: BP_SYST 126
--- NOTE | 2019-04-05 22:00 | NUR ---
MEDS ADMIN: DUE MEDS GIVEN WITHOUT DIFFICULTY. DENIES CHEST PAIN.
--- NOTE | 2019-04-05 23:05 | NUR ---
NEEDED EXTRA BREATHING TX DUE TO COUGHING MOIST /PRODUCTIVE COUGH.
--- NOTE | 2019-04-05 23:15 | NUR ---
DISCUSSED IMPORTANCE OF WOUND CARE .REFUSE ,VERBALIZED I NEED TO SLEEP.
[2019-04-05 23:25] VITALS: BP_SYST 127
[2019-04-06] MEDS: IPRATROPIUM/ALBUTEROL SULFATE 3 ML AMPUL.NEB (DUONEB) INH PRN ×5 (00:31→19:21)
--- NOTE | 2019-04-06 01:30 | NUR ---
PATIENT RESTING WITH EYES CLOSE.
--- NOTE | 2019-04-06 03:50 | NUR ---
CONTINUE RESTING WITH EYES CLOSE BUT EASILY WAKES UP. STILL WITH COUGHS.
[2019-04-06 07:14] LABS: ALBUMIN 2.6 g/dL (3.4-4.8); CREATININE 0.69 mg/dL (0.55-1.30); POTASSIUM 3.7 mmol/L (3.5-5.1); TOTAL BILIRUBIN 0.3 mg/dL (0.0-1.0)
[2019-04-06 08:00] VITALS: BP_SYST 120
--- NOTE | 2019-04-06 08:00 | NUR ---
Initial Note-Pt awake, alert, and oriented. Denies any pain, or SOB. Pt in high fowlers position, on room air, tolerating well saturating at 95%. Urinal at bedside, no urine output. Safety precautions place, bed in lowest position with bed alarm on, call light within reach and encouraged pt to use for assistance.
[2019-04-06] MEDS: BUDESONIDE 0.5 MG/2 ML AMPUL.NEB INH SCH ×2 (08:32→19:40)
[2019-04-06] MEDS: ENOXAPARIN SODIUM 60 MG/0.6 ML SYRINGE SQ SCH ×2 (08:54→21:45)
[2019-04-06] MEDS: FUROSEMIDE 20 MG/2 ML VIAL IVP SCH (08:54)
[2019-04-06] MEDS: guaiFENesin ER 600 MG TAB PO SCH ×2 (08:55→21:44)
[2019-04-06] MEDS: PENTOXIFYLLINE 400 MG TABLET.SA (TRENtal) PO SCH ×3 (08:55→17:33)
[2019-04-06] MEDS: PREDNISONE 20 MG TABLET PO SCH ×2 (08:55→17:33)
--- NOTE | 2019-04-06 10:00 | NUR ---
Notes-Pt awake in bed, receiving breathing treatment, tolerating well. Denies any pain or SOB. Call light within reach and encourage pt to use.
[2019-04-06] MEDS: NACL 0.9% 1,000 ML IV SCH (10:45)
--- NOTE | 2019-04-06 12:30 | NUR ---
Notes-Pt awake, watching television in bed. Pt is in high fowlers position, on room air, tolerating well. Denies any pain or SOB at this time. Will continue to monitor.
[2019-04-06] MEDS: BALSAM PERU/CASTOR OIL 60 GM OINT...G. TP SCH (12:42)
--- NOTE | 2019-04-06 14:00 | NUR ---
Notes-Pt awake, resting in bed watching television. Daughter at bedside. Denies any pain or SOB at this time. Breathing is even and un-labored on room air. Will continue to monitor.
[2019-04-06 15:43] VITALS: BP_SYST 130
[2019-04-06] MEDS: MONTELUKAST 10 MG TABLET PO SCH (17:33)
--- NOTE | 2019-04-06 18:30 | NUR ---
Closing Note-Pt awake, resting in bed, watching television. Denies any pain or SOB. Pt on room air and tolerating well. Safety precautions in place, bed alarm on and in lowest position, call light within reach and encourage pt to use for assistance. Will continue to monitor until pt care is endorsed to assistant shift supervisor nurse.
--- NOTE | 2019-04-06 19:48 | NUR ---
Initial note: Received report from dayslisaft RN. Patient is awake, no distress. Alert and oriented x4, tolerating room air. IV fluids infusing as ordered to left AC IV site, no infiltration noted. Patient is wearing a diaper he brought from home. He was educated regarding risk of skin breakdown from diaper use, patient insisted he still wear one. Bed is locked in lowest position, side rails raised x3, bed alarm on. Call light is with patient. Will continue with plan of care.
[2019-04-06 20:00] VITALS: BP_SYST 129
--- NOTE | 2019-04-06 21:57 | NUR ---
Wound care refused: Attempted to perform wound care for right hip and right forearm wounds, but patient refused. Patient was educated regarding benefits of wound care and risks of refusing it, patient still refusing. Call light is with patient, will attempt later.
[2019-04-06] MEDS: HYDROcodone/ACETAMIN 5-325 MG TAB (NORCO/ VICODIN) PO PRN (23:27)
--- NOTE | 2019-04-06 23:29 | NUR ---
Pain: Patient complaining of right hip pain 6/10. Administered [place] as ordered for moderate pain. No adverse effects noted. Call light is with patient. Will continue monitoring.
[2019-04-07 00:32] VITALS: BP_SYST 145
--- NOTE | 2019-04-07 02:37 | NUR ---
Rounds: Patient is awake, no distress. Coffee was provided per request. Tolerating room air. Call light is with patient. Will continue to monitor.
[2019-04-07] MEDS: IPRATROPIUM/ALBUTEROL SULFATE 3 ML AMPUL.NEB (DUONEB) INH PRN ×2 (02:50→14:45)
--- NOTE | 2019-04-07 03:40 | NUR ---
IV IV RE-INSERTION: Complaining of pain to IV site. Restarted on THERESA, 22 gauge. Successful after 1 attempt. Resumed current IVF of NS and regulated @ 30 ml per hour. Will observe for any signs of infiltration.
--- NOTE | 2019-04-07 04:00 | NUR ---
Wound care: Wound care and dressing change rendered for right hip and right forearm wounds per MD order and wound care nurse recommendations. Patient tolerated well. Will monitor for dressing dislodgment/soiling.
[2019-04-07] MEDS: NACL 0.9% 1,000 ML IV SCH (04:12)
--- NOTE | 2019-04-07 06:28 | NUR ---
Closing note: Patient is resting, no distress. Watching TV. Tolerating room air. IV site to THERESA is patent, benign. All needs met. Safety and fall precautions in place. Hourly rounding performed throughout shift. Will endorse care to dayshift RN.
[2019-04-07 07:24] VITALS: BP_SYST 137
--- NOTE | 2019-04-07 07:26 | NUR ---
am notes: bedside report received from jewel aldana. patient alert, awake, oriented, denies pain and discomfort. updated the white board. ivf infusing well site at left upper arm patent. no swelling or infiltration. multiple bruises and skin tear noted. pt incontinent, informed about no diaper. pt preferred to use his own. vital sign stable, afebrile. encourage to call when assistance needed. pelon light within reach. bed is low and lock position.
[2019-04-07] MEDS: BUDESONIDE 0.5 MG/2 ML AMPUL.NEB INH SCH (07:31)
[2019-04-07] MEDS: PREDNISONE 20 MG TABLET PO SCH (09:06)
[2019-04-07] MEDS: guaiFENesin ER 600 MG TAB PO SCH (09:06)
[2019-04-07] MEDS: FUROSEMIDE 20 MG/2 ML VIAL IVP SCH (09:06)
[2019-04-07] MEDS: PENTOXIFYLLINE 400 MG TABLET.SA (TRENtal) PO SCH (09:06)
[2019-04-07] MEDS: BALSAM PERU/CASTOR OIL 60 GM OINT...G. TP SCH (09:14)
[2019-04-07] MEDS: ENOXAPARIN SODIUM 60 MG/0.6 ML SYRINGE SQ SCH (09:14)
--- NOTE | 2019-04-07 10:30 | NUR ---
WOUND CARE: RIGHT UPPER ARM SKIN TEAR CLEANSE WITH NORMAL SALINE VENELEX OINTMENT. NON ADHESIVE DRESSING AND KERLIX APPLIED. NO BLEEDING NOTED.
--- NOTE | 2019-04-07 11:24 | NUR ---
PT note Attempted to have patient participate with therapy; patient refusing at this time.
--- NOTE | 2019-04-07 12:08 | NUR ---
physical therapy ambulate patient room air saturation 95-% prior. 96% post ambulation.
[2019-04-07 12:12] VITALS: BP_SYST 143
--- NOTE | 2019-04-07 13:42 | NUR ---
RECHECK SATURATION ON ROOM AIR LYIGN DOWN 91-92%.PT IS ANXIOUS TO GO HOME. PAGED MD CALLAHAN S/W TONG ANSWERING SERVICE AWAITED TO CALLBACK.
--- NOTE | 2019-04-07 14:09 | NUR ---
informed patient MD Devries will be coming to discharge him.no specific time given.
--- NOTE | 2019-04-07 15:00 | NUR ---
MD CALLAHAN CAME AND ORDER PATIENT TO DISCHARGE HOME WITH WRITTEN PRESCRIPTION.
--- NOTE | 2019-04-07 15:25 | NUR ---
All discharge instruction explained and copies given including the monograph of copd , written prescription given Augmentin and prednisone.vital sign stable, afebrile. iv access removed and dressing applied. no active bleeding noted. belongings check and pt agreed.waiting for the daughter for bead picker.
--- NOTE | 2019-04-07 15:46 | NUR ---
DIRECTOR SHIP WHEEL OUT PATIENT VIA WHEELCHAIR ACCOMPANIED BY DAUGHTER.
== END 2019-04-07 15:45 | disposition home or self-care (01) | DRG 299 ==
LOC: SED 22:20 → STU 03-29 00:43
PROVIDERS: ADMIT Internal Medicine; ATTEND Internal Medicine
DX: I73.9 Peripheral vascular disease, unspecified (principal); I50.33 Acute on chronic diastolic (congestive) heart failure; J44.1 Chronic obstructive pulmonary disease with (acute) exacerbation; R64 Cachexia; Z68.1 Body mass index [BMI] 19.9 or less, adult; R65.10 Systemic inflammatory response syndrome (SIRS) of non-infectious origin without acute organ dysfunction; E44.0 Moderate protein-calorie malnutrition; I11.0 Hypertensive heart disease with heart failure; K21.9 Gastro-esophageal reflux disease without esophagitis; F17.210 Nicotine dependence, cigarettes, uncomplicated; E78.5 Hyperlipidemia, unspecified; G89.29 Other chronic pain; I27.81 Cor pulmonale (chronic); F32.9 Major depressive disorder, single episode, unspecified; M54.5 Low back pain; R09.02 Hypoxemia; T38.0X5A Adverse effect of glucocorticoids and synthetic analogues, initial encounter; Y92.89 Other specified places as the place of occurrence of the external cause; Z91.11 Patient's noncompliance with dietary regimen; Z91.19 Patient's noncompliance with other medical treatment and regimen
CPT/HCPCS: 36415; 71045; 73706; 80048; 80053; 81000-TC; 83605; 83880; 84484; 85025; 85610-TC; 85730-TC; 87040-TC; 87081; 87086; 93005; 93923; 94640; 94760; 96365; 96367; 97116-GP; 97530-GP; 99291; G0378; J0456; J0696; J1650; J1940; J2270; J2543; J2930; J3475; J7030; J7050; J7060; J7512; J7620; J7626; Q9967

== ENCOUNTER 2019-04-07 20:46 | Emergency (ER) | payer OTHER ==
[~2019-04-07] VITALS: Ht 167.6 cm; Wt 50.8 kg
[~2019-04-07 20:46] MED LIST changes: +IPRA3AMP9 INH
[2019-04-07 20:59] VITALS: BP_SYST 163
--- NOTE | 2019-04-07 21:04 | NUR ---
Patient triaged and placed in ED hallway. Patient appears in no acute distress at this time. Accompanied by EMS, awaiting available bed, and MD notified of need for MSE.
--- NOTE | 2019-04-07 22:10 | NUR ---
Pt biba to bed 4 for evaluation
--- NOTE | 2019-04-07 22:20 | NUR ---
Patient AOx4, brought to ER via ambulance from home for complaint of right lower back pain s/p fall. Patient states he uses a walker for ambulantion and tripped and fell onto back. Patient states he hit his head but no KO. Patient states pain worsens with movement. Pain 10/10 to site. Patient has hx of COPD. No other symptoms or complaints.
--- NOTE | 2019-04-07 22:25 | NUR ---
ER MD Bergeron at bedside for medical evaluation.
[2019-04-07] MEDS ORDERED: MORPHINE 4 MG/ML INJ. SYRINGE IVP ONE (22:45)
[2019-04-07] MEDS ORDERED: IPRATROPIUM/ALBUTEROL SULFATE 3 ML AMPUL.NEB (DUONEB) INH ONE (22:45)
[2019-04-07 22:59] LABS: HEMATOCRIT 30.9 % (36-54); HEMOGLOBIN 10.4 g/dL (14.0-18.0); MEAN CORPUSCULAR HEMOGLOBIN 32 pg (27-31); MEAN CORPUSCULAR HGB CONC 34 % (32-36); MEAN CORPUSCULAR VOLUME 95 fL (79.0-98.0); PLATELET COUNT (AUTO) 197 K/uL (130-430); RED BLOOD CELL COUNT(AUTO) 3.27 MIL/uL (4.2-6.2); RED CELL DISTRIBUTION WIDTH 14.5 % (9.0-15.0); WHITE BLOOD COUNT (AUTO) 10.8 K/uL (4.8-10.8)
[2019-04-07 23:13] LABS: CALCIUM 9.5 mg/dL (8.4-11.0); CREATININE 0.7 mg/dL (0.55-1.30); POTASSIUM 3.4 mmol/L (3.5-5.1)
--- NOTE | 2019-04-07 23:15 | NUR ---
# 22 gauge angiocath placed to LFA. Use of asceptic technique. Opsite placed over site. Blood return noted. Flushed with 10 cc of normal saline. No evidence of infiltration noted. Patient tolerated well.
[2019-04-07 23:24] LABS: ALBUMIN 2.7 g/dL (3.4-4.8); TOTAL BILIRUBIN 0.2 mg/dL (0.0-1.0)
[2019-04-07 23:34] LABS: ATYPICAL LYMPHOCYTES % 0 % (0-0); BAND % (MANUAL) 7 % (0-6); BASOPHILS % (MANUAL) 0 % (0-2); EOSINOPHILS % (MANUAL) 0 % (0-7); LYMPHOCYTES % (MANUAL) 12 % (20-46); METAMYELOCYTES % 1 % (0-0); MONOCYTES % (MANUAL) 14 % (0-11); MYELOCYTES % 1 % (0-0)
--- NOTE | 2019-04-07 23:45 | NUR ---
No adverse reactions noted after medication administration. Will continue to monitor.
[2019-04-08 01:07] VITALS: BP_SYST 142
--- NOTE | 2019-04-08 01:07 | NUR ---
Patient given written and verbal discharge instructions and verbalizes understanding. ER MD discussed with patient the results and treatment provided. Patient in stable condition. ID arm band removed. IV catheter removed intact and dressing applied, no active bleeding. Rx of Tramadol and Calcitonin given. Patient educated on pain management and to follow up with PMD. Pain Scale 0/10. Opportunity for questions provided and answered. Medication side effect fact sheet provided.
== END 2019-04-08 01:07 | disposition home or self-care (01) ==
LOC: SED 20:46
DX: S32.028A Other fracture of second lumbar vertebra, initial encounter for closed fracture (principal); J44.9 Chronic obstructive pulmonary disease, unspecified; Z79.899 Other long term (current) drug therapy; F17.210 Nicotine dependence, cigarettes, uncomplicated; W01.0XXA Fall on same level from slipping, tripping and stumbling without subsequent striking against object, initial encounter; Y93.89 Activity, other specified; Y92.89 Other specified places as the place of occurrence of the external cause; Y99.8 Other external cause status
CPT/HCPCS: 36415; 72128; 72131; 80053; 85007; 85027; 94640; 96374; 99284; J2270; J7620; 99283